=== PATIENT | male | born 1965 | race Caucasian/White ===

== ENCOUNTER 2017-11-21 05:05 | Observation (INO) | payer BC ==
[~2017-11-21] VITALS: Ht 180.3 cm; Wt 95.3 kg
--- NOTE | 2017-11-21 05:23 | EMERGENCY ROOM VISIT NOTE ---
History First contact with patient: 05:10 Chief Complaint: CARDIAC ASSESSMENT Stated Complaint: TIGHTNESS IN CHEST History of Present Illness The patient is a 52 year old male who presents to the Emergency Room for evaluation of left chest pain. Onset around 8pm this evening. Tight in nature no stabbing. No radiation. Associated with some mild SOB and anxiety. Exertion makes worse, rest makes better. No history cardiac disease. History of DMII, DLP, and family CAD history. No HTN nor smoking. Denies lightheaded, syncope, palpitations, nausea, vomiting nor other symptoms. No previous cardiac work-up. 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 No hand, forearm, calf, leg swelling nor pain. No medications prior to arrival. Review of Systems See HPI for pertinent positives & negatives. A total of 10 systems reviewed and were otherwise negative. Past Medical/Surgical History Medical Problems: (1) DMII (diabetes mellitus, type 2) (2) Hyperlipidemia (3) Hypothyroidism Social History Smoking Status: Never Smoker Smokeless Tobacco Use: No Drug Use: none Marital Status: Current/Historical Medications Scheduled Aspirin (Aspirin Ec), 81 MG PO DAILY Canagliflozin (Invokana), 300 MG PO DAILY Glyburide (Glyburide), 1.25 MG PO QAM Levothyroxine Sodium (Levothyroxine Sodium), 125 MCG PO DAILY Metformin Hcl (Glucophage), 1,000 MG PO BIDM Simvastatin (Zocor), 20 MG PO QPM Physical Exam Vital Signs Date Time Temp Pulse Resp B/P (MAP) Pulse Ox O2 Delivery O2 Flow Rate FiO2 11/21/17 07:18 90 18 109/72 99 Room Air 11/21/17 06:47 93 11/21/17 06:01 116/74 11/21/17 06:00 90 18 96 Room Air 11/21/17 05:59 110/67 11/21/17 05:58 79 110/67 97 Room Air 11/21/17 05:56 67 18 77/53 97 Room Air 11/21/17 05:55 73 18 58/42 94 Room Air 11/21/17 05:17 Room Air 11/21/17 05:07 37.2 100 20 157/84 98 Room Air Physical Exam GENERAL: Patient is well appearing and mildly anxious HEENT: No acute trauma, normocephalic atraumatic, mucous membranes moist, no nasal congestion, no scleral icterus. NECK: No stridor, no adenopathy, no meningismus, trachea is midline. LUNGS: No dyspnea. Clear to auscultation and equal bilaterally. No wheeze, no rhonchi. HEART: Regular rate and rhythm. No murmurs, rubs, gallops appreciated. ABDOMEN: Soft, nontender, bowel sounds positive, no masses appreciated, no peritonitis. BACK: No midline tenderness, no CVA tenderness EXTREMITIES: Normal motion all extremities, no cyanosis, no edema. NEUROLOGIC: Alert and oriented, no acute motor or sensory deficits, no focal weakness, cranial nerves grossly intact. SKIN: resolving bruise over left anterior bicep. abrasion over left knee healing. no rash, no jaundice, no diaphoresis. Medical Decision & Procedures Laboratory Results 11/21/17 05:15 Red Blood Count 5.37, Mean Corpuscular Volume 86.6, Mean Corpuscular Hemoglobin 30.5, Mean Corpuscular Hemoglobin Concent 35.3, Mean Platelet Volume 10.1, Neutrophils (%) (Auto) 54.4, Lymphocytes (%) (Auto) 29.6, Monocytes (%) (Auto) 7.8, Eosinophils (%) (Auto) 7.2, Basophils (%) (Auto) 0.7, Neutrophils # (Auto) 9.34, Lymphocytes # (Auto) 5.08, Monocytes # (Auto) 1.33, Eosinophils # (Auto) 1.23, Basophils # (Auto) 0.12 11/21/17 05:15 Test 11/21/17 05:15 White Blood Count 17.15 K/uL (4.8-10.8) Red Blood Count 5.37 M/uL (4.7-6.1) Hemoglobin 16.4 g/dL (14.0-18.0) Hematocrit 46.5 % (42-52) Mean Corpuscular Volume 86.6 fL (80-100) Mean Corpuscular Hemoglobin 30.5 pg (25-34) Mean Corpuscular Hemoglobin Concent 35.3 g/dl (32-36) Platelet Count 303 K/uL (130-400) Mean Platelet Volume 10.1 fL (7.4-10.4) Neutrophils (%) (Auto) 54.4 % Lymphocytes (%) (Auto) 29.6 % Monocytes (%) (Auto) 7.8 % Eosinophils (%) (Auto) 7.2 % Basophils (%) (Auto) 0.7 % Neutrophils # (Auto) 9.34 K/uL (1.4-6.5) Lymphocytes # (Auto) 5.08 K/uL (1.2-3.4) Monocytes # (Auto) 1.33 K/uL (0.11-0.59) Eosinophils # (Auto) 1.23 K/uL (0-0.5) Basophils # (Auto) 0.12 K/uL (0-0.2) RDW Standard Deviation 41.0 fL (36.4-46.3) RDW Coefficient of Variation 12.9 % (11.5-14.5) Immature Granulocyte % (Auto) 0.3 % Immature Granulocyte # (Auto) 0.05 K/uL (0.00-0.02) D-Dimer 570 ug/L FEU (0-500) Anion Gap 5.0 mmol/L (3-11) Est Creatinine Clear Calc Drug Dose 78.0 ml/min Estimated GFR () 72.9 Estimated GFR (Non- 62.9 BUN/Creatinine Ratio 14.1 (10-20) Calcium Level 8.9 mg/dl (8.5-10.1) Total Bilirubin 0.6 mg/dl (0.2-1) Direct Bilirubin 0.2 mg/dl (0-0.2) Aspartate Amino Transf (AST/SGOT) 15 U/L (15-37) Alanine Aminotransferase (ALT/SGPT) 32 U/L (12-78) Alkaline Phosphatase 93 U/L (45-117) Total Protein 8.4 gm/dl (6.4-8.2) Albumin 4.2 gm/dl (3.4-5.0) Lipase 451 U/L (73-393) Medications Administered Medications (Trade) Dose Ordered Sig/Freddy Route Start Time Stop Time Status Last Admin Dose Admin Aspirin (Aspirin Chew) 324 mg NOW STAT PO 11/21/17 05:41 11/21/17 05:42 DC 11/21/17 05:48 324 MG Nitroglycerin (Nitrostat Tab) 0.4 mg Q5M PRN SL 11/21/17 05:45 11/21/17 10:42 DC 11/21/17 05:49 0.4 MG Sodium Chloride 1,000 ml @ 999 mls/hr Q1H1M STAT IV 11/21/17 05:57 11/21/17 06:57 DC 11/21/17 06:06 999 MLS/HR Al Hydroxide/Mg Hydroxide (Maalox Susp) 30 ml NOW STAT PO 11/21/17 07:10 11/21/17 07:11 DC 11/21/17 07:17 30 ML Pantoprazole Sodium (Protonix Tab) 40 mg NOW STAT PO 11/21/17 07:10 11/21/17 07:11 DC 11/21/17 07:18 40 MG ECG Per My Interpretation Indication: chest pain Rate (beats per minute): 98 Rhythm: normal sinus Findings: no acute ischemic change, no ectopy Medical Decision Differential: Cardiac Ischemia (STEMI, NSTEMI, Unstable Angina, etc), Aortic Dissection, Arrhythmia, Pulmonary Embolism, Pneumonia, Pneumothorax, MSK, Infectious, Pericarditis/Myocarditis, Esophageal Rupture, Gastrointestinal, amongst other pathologies entertained. 52 yr old male arrives for evaluation of left substernal chest pressure. EKG without ischemia. Initial trop negative. WBC 17 of uncertain etiology though no fever, cxr clear, no infectious symptoms, and abdomen is soft/non-tender. Glucose 250s consistent with his diabetes and admits he doesn't take his BG at home. Given SLNTG with rapid deep drop in BP to SBP 50s which responded to laying back and NSS bolus. No change in pain. Repeat EKG unremarkable as well. Mild increase dimer and with symptoms felt CT PE indicated. Signed out to Dr Mena awaiting report and plan discuss with hospitalist. Head Trauma GCS Score: 15 Medication Reconcilliation Current Medication List: was personally reviewed by me Blood Pressure Screening Patient's blood pressure: Elevated blood pressure Impression Primary Impression: Substernal chest pain Departure Information Referrals Marlon Dobson M.D.(HU[facility]) (PCP) Patient Instructions My [facility]
[2017-11-21 05:31] LABS: HEMATOCRIT 46.5 % (42-52); HEMOGLOBIN 16.4 g/dL (14.0-18.0); MEAN CELL VOLUME 86.6 fL (80-100); MEAN CORPUSCULAR HEMOGLOBIN 30.5 pg (25-34); MEAN CORPUSCULAR HGB CONC 35.3 g/dl (32-36); MEAN PLATELET VOLUME 10.1 fL (7.4-10.4); PLATELET COUNT 303 K/uL (130-400); RED CELL DISTRIBUTION WIDTH CV 12.9 % (11.5-14.5); WHITE BLOOD COUNT 17.15 K/uL (4.8-10.8)
[2017-11-21] MEDS ORDERED: ASPIRIN 324 MG CHEW PO STA (05:41)
[2017-11-21] MEDS ORDERED: NITROGLYCERIN 0.4 MG SL PER TAB CHARGE SL PRN (05:45)
[2017-11-21 05:50] LABS: BLOOD UREA NITROGEN 18 mg/dl (7-18); CALCIUM 8.9 mg/dl (8.5-10.1); CARBON DIOXIDE 27 mmol/L (21-32); CREATININE 1.29 mg/dl (0.60-1.40); GLUCOSE 252 mg/dl (70-99); POTASSIUM 4.1 mmol/L (3.5-5.1); SODIUM 132 mmol/L (136-145)
[2017-11-21 05:57] LABS: BASO % 0.7 %; BASO ABS # 0.12 K/uL (0-0.2); EOS % 7.2 %; EOS ABS # 1.23 K/uL (0-0.5); IG# 0.05 K/uL (0.00-0.02); LYMPH % 29.6 %; LYMPH ABS # 5.08 K/uL (1.2-3.4); MONO % 7.8 %; MONO ABS # 1.33 K/uL (0.11-0.59); NEUT % 54.4 %; NEUT ABS # 9.34 K/uL (1.4-6.5)
[2017-11-21] MEDS ORDERED: SODIUM CHLORIDE 0.9% 1000ML 1,000 ML IV STA (05:57)
[2017-11-21] MEDS ORDERED: OPTIRAY 320 IV PRN (06:30)
[2017-11-21] MEDS ORDERED: ASPI81TA28 PO (06:42)
[2017-11-21] MEDS ORDERED: CANA1TAB3 PO (06:44)
[2017-11-21] MEDS ORDERED: GLYB1.257 PO (06:46)
[2017-11-21 06:47] LABS: ALBUMIN 4.2 gm/dl (3.4-5.0); ALKALINE PHOSPHATASE 93 U/L (45-117); ALT/SGPT 32 U/L (12-78); AST/SGOT 15 U/L (15-37); LIPASE 451 U/L (73-393); TOTAL PROTEIN 8.4 gm/dl (6.4-8.2)
[2017-11-21] MEDS ORDERED: LEVO125T5 PO (06:48)
[2017-11-21] MEDS ORDERED: SIMV20TA2 PO (06:49)
[2017-11-21] MEDS ORDERED: METF-384 PO (06:50)
--- NOTE | 2017-11-21 07:02 | DIAGNOSTIC IMAGING REPORT ---
CT ANGIOGRAM OF THE CHEST CLINICAL HISTORY: Atypical chest pain COMPARISON STUDY: Chest x-ray November 21, 2007 TECHNIQUE: Following the IV administration of 92 mL of Optiray-320, CT angiogram of the thorax was performed from the thoracic inlet to the lung bases utilizing the pulmonary embolus protocol. Images are reviewed in the axial, sagittal, and coronal planes. IV contrast was administered without complication. MIP imaging was performed. A dose lowering technique was utilized adhering to the principles of ALARA. CT DOSE: 593.04 mGycm FINDINGS: There is an 18 mm right lobe thyroid nodule. Nonemergent thyroid ultrasonography should be considered in follow-up. No pathologically enlarged axillary mediastinal or hilar lymph nodes were visualized. There was no evidence of thoracic aortic dilatation. There were no pulmonary artery filling defects to indicate acute pulmonary embolism. No pleural effusions are visualized. There is a 6 x 4 mm right lower lobe solid pulmonary nodule as visualized in image #[id number]. There is a 2 mm subpleural calcified granuloma within the right upper lobe. There is no focal pulmonary consolidation. IMPRESSION: 1. No evidence of acute pulmonary embolism 2. No evidence of focal pulmonary consolidation 3. 6 x 4 mm solid right lower lobe pulmonary nodule. In a low risk patient, no further follow-up is indicated. 4. 18 mm right lobe thyroid nodule. Please refer to below summary of Fleischner criteria recommendations for follow-up of incidental CT nodules (Rafael Padilla, Guidelines for management of small pulmonary nodules detected on CT scans: A statement from the Fleischner Society, Radiology 237: [phone].) SOLID NODULES Solitary nodule size: <6 mm * low risk patients: no follow-up needed * high risk patients: optional CT at 12 months Solitary nodule size: 6-8 mm * low risk patients: follow-up at 6-12 months, then consider further follow-up at 18-24 months * high risk patients: initial follow-up CT at 6-12 months and then at 18-24 months if no change Solitary nodule size: >8 mm * either low or high risk patients - consider follow-up CT at 3 months, and/or CT-PET, and/or biopsy Multiple nodules size: <6 mm * low risk patients: no routine follow-up * high risk patients: optional CT at 12 months Multiple nodules size: 6-8 mm * low risk patients: follow-up at 3-6 months, then consider further follow-up at 18-24 months * high risk patients: follow-up at 3-6 months, then at 18-24 months if no change Multiple nodules size: >8 mm * low risk patients: follow-up at 3-6 months, then consider further follow-up at 18-24 months * high risk patients: follow-up at 3-6 months, then at 18-24 months if no change Note: newly detected indeterminate nodule in persons 35 years of age or older. * low risk patients: minimal or absent history of smoking and/or other known risk factors * high risk patients: history of smoking or of other known risk factors (e.g. first degree relative with lung cancer, or exposure to asbestos, radon, uranium) * if a nodule up to 8 mm is partly solid or is ground glass further follow-up is required after 24 months to exclude possible slow growing adenocarcinoma (ABIEL) SUBSOLID NODULES Solitary pure ground-glass nodule * nodule size <6 mm - no CT follow-up required * nodule size >=6 mm - follow-up CT at 6-12 months, then every 2 years until 5 years Solitary part-solid nodule * nodule size <6 mm - no CT follow-up required * nodule size >=6 mm - follow-up CT at 3-6 months. If unchanged, and solid component remains <6 mm, then annual follow-up for 5 years Multiple subsolid nodules * nodule size <6 mm - follow-up CT at 3-6 months, consider further follow-up at 2 and 4 years if stable * nodule size >=6 mm - follow-up CT at 3-6 months, subsequent management based on the most suspicious nodule(s) Electronically signed by: Wali Yuan M.D. 11/21/2017 7:00 AM Dictated Date/Time: 11/21/2017 6:55 AM
[2017-11-21] MEDS ORDERED: PANTOprazole SOD 40 MG TAB PO STA (07:10)
[2017-11-21] MEDS ORDERED: ALUMINUM/MAGNESIUM SUSP 30 ML UDC PO STA (07:10)
--- NOTE | 2017-11-21 07:10 | DIAGNOSTIC IMAGING REPORT ---
SINGLE VIEW CHEST CLINICAL HISTORY: Atypical chest pain. FINDINGS: An AP, portable, upright chest radiograph is obtained. No prior studies are available for comparison at the time of dictation. After degraded The cardiomediastinal silhouette is unremarkable. The lungs and pleural spaces are clear. No pneumothorax is seen. The bony thorax is grossly intact. IMPRESSION: No active disease in the chest. Electronically signed by: Francois Bowen M.D. 11/21/2017 7:09 AM Dictated Date/Time: 11/21/2017 7:09 AM
--- NOTE | 2017-11-21 07:30 | EMERGENCY ROOM VISIT NOTE ---
ED Visit Note First contact with patient: 07:10 I received this patient change of shift signout from Dr. Bright. Please see his note for initial presentation and history and physical. The patient is a 52 -year-old diabetic who presented to the emergency department for chest discomfort. The patient describes his chest discomfort as a pressure and a burning sensation. He has not had a cardiac workup in the past. He does have risk factors including diabetes and hyperlipidemia and also had a family history of heart disease. The patient was treated with aspirin and nitroglycerin. He did have a drop in his blood pressure but this was treated with IV fluids with good results. The patient continues to have a slight amount of chest pain at this time. EKG does not show any acute ischemic changes. His initial cardiac biomarkers was negative despite having ongoing pain since 11 PM last evening. I discussed the patient's laboratory and radiographic studies with him. I also discussed the limitations of the emergency department workup for chest pain with him. Given his risk factors I also discussed this case with the on-call [facility] hospitalist. They will evaluate the patient in the emergency department for further management and disposition.
[2017-11-21] MEDS ORDERED: IV FLUIDS COMPLETED PRN (07:45)
[2017-11-21 08:50] VITALS: O2SAT 97
[2017-11-21] MEDS ORDERED: GLUCOSE 10 TABS/TUBE PO PRN (09:00)
[2017-11-21] MEDS ORDERED: ONDANSETRON INJ 2 MG/ML 2 ML VIAL IV PRN (09:00)
[2017-11-21] MEDS ORDERED: GLUCAGON FOR INJ 1 MG VIAL SQ PRN (09:00)
[2017-11-21] MEDS ORDERED: DEXTROSE 50% 50 ML SYR IV PRN (09:00)
[2017-11-21] MEDS ORDERED: GLUCOSE 40% GEL 15 GM TUBE PO PRN (09:00)
[2017-11-21] MEDS ORDERED: ACETAMINOPHEN 325 MG TAB PO PRN (09:00)
[2017-11-21] MEDS ORDERED: MoRPHine SULFATE 2 MG/ML CARP IV PRN (09:00)
--- NOTE | 2017-11-21 09:19 | History and Physical ---
History & Physical Date & Time of Service: Nov 21, 2017 at 09:01 Chief Complaint: Tightness In Chest Primary Care Physician: Marlon Dobson M.D.(LINDA) History of Present Illness Source: patient, spouse, clinic records, hospital records 52 yo diabetic male presents with substernal chest tightness that began when he laid down to sleep last night. 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 He ate a large lunch and dinner and noticed not feeling right but couldn't identify what was wrong until he got into bed and felt the pressure. It was not associated with any other symptoms including no nausea, lightheadedness, diaphoresis, palpitations, or shortness of breath. He did report two episodes of loose stool yesterday, but otherwise, denies any abdominal pain, blood in stool or other symptoms. He reports going to sleep then waking up to go to the restroom around 0430. He noticed the pain was still present and this concerned him enough to come in and be seen. Two weeks ago he tripped on a curb and fell on his L shoulder, which is bruised and has some limited ROM. He reports being concerned that the pain he was feeling was from a blood clot. In the ER he had a mildly positive D-dimer and underwent CTA which was negative for PE. He was found to have a glucose of 250, reports an A1C of 9, had a Na 132 and a WBC 17K. He is not ill appearing and has no cold symptoms. Physical exam was unremarkable aside from some mild tenderness to palpation on the lower left sternal border and in some intercostal spaces nonspecifically. He reports not leading a very active lifestyle and does not exercise regularly. He is a non smoker who rarely uses alcohol and has no significant family history. DMII, HLP and age are his risk factors for cardiac disease. He has never undergone a cardiac evaluation. Past Medical/Surgical History Medical Problems: (1) DMII (diabetes mellitus, type 2) Status: Chronic (2) Hyperlipidemia Status: Chronic (3) Hypothyroidism Status: Chronic Family History Patient reports no known family medical history. Social History Smoking Status: Never Smoker Smokeless Tobacco Use: No Alcohol Use: socially Drug Use: none Marital Status: Housing status: lives with significant other Occupational Status: employed Immunizations History of Influenza Vaccine: Yes Influenza Vaccine Date: Oct 25, 2017 History of Tetanus Vaccine?: Yes Tetanus Immunization Date: Aug 13, 2008 History of Pneumococcal: Yes Pneumococcal Date: Sep 07, 2009 History of Hepatitis B Vaccine: Yes Hepatitis Immunization Date: Jul 15, 2016 Multi-Drug Resistant Organisms History of MDRO: No Allergies Coded Allergies: No Known Allergies (Unverified , 11/21/17) Home Medications Scheduled Aspirin (Aspirin Ec), 81 MG PO DAILY Canagliflozin (Invokana), 300 MG PO DAILY Glyburide (Glyburide), 1.25 MG PO QAM Levothyroxine Sodium (Levothyroxine Sodium), 125 MCG PO DAILY Metformin Hcl (Glucophage), 1,000 MG PO BIDM Simvastatin (Zocor), 20 MG PO QPM Review of Systems At least ten systems were reviewed and negative except as indicated in HPI. Physical Exam Vital Signs Date Time Temp Pulse Resp B/P (MAP) Pulse Ox O2 Delivery O2 Flow Rate FiO2 11/21/17 07:18 90 18 109/72 99 Room Air 11/21/17 06:47 93 11/21/17 06:01 116/74 11/21/17 06:00 90 18 96 Room Air 11/21/17 05:59 110/67 11/21/17 05:58 79 110/67 97 Room Air 11/21/17 05:56 67 18 77/53 97 Room Air 11/21/17 05:55 73 18 58/42 94 Room Air 11/21/17 05:17 Room Air 11/21/17 05:07 37.2 100 20 157/84 98 Room Air General Appearance: WD/WN, no apparent distress Head: normocephalic, atraumatic Eyes: normal inspection, PERRL, sclerae normal ENT: hearing grossly normal, pharynx normal Neck: no JVD, trachea midline Respiratory/Chest: lungs clear, normal breath sounds, no respiratory distress, no accessory muscle use, + pertinent finding Cardiovascular: regular rate, rhythm, no edema, no gallop, no murmur, normal peripheral pulses Abdomen/GI: normal bowel sounds, non tender, soft, no organomegaly Back: normal inspection Extremities/Musculoskelatal: normal inspection, no pedal edema, normal range of motion Neurologic/Psych: linotypist II-XII nml as tested, no motor/sensory deficits, alert, normal mood/affect, oriented x 3 Skin: normal color, warm/dry Diagnostics Laboratory Results 11/21/17 05:15 Red Blood Count 5.37, Mean Corpuscular Volume 86.6, Mean Corpuscular Hemoglobin 30.5, Mean Corpuscular Hemoglobin Concent 35.3, Mean Platelet Volume 10.1, Neutrophils (%) (Auto) 54.4, Lymphocytes (%) (Auto) 29.6, Monocytes (%) (Auto) 7.8, Eosinophils (%) (Auto) 7.2, Basophils (%) (Auto) 0.7, Neutrophils # (Auto) 9.34, Lymphocytes # (Auto) 5.08, Monocytes # (Auto) 1.33, Eosinophils # (Auto) 1.23, Basophils # (Auto) 0.12 11/21/17 05:15 Test 11/21/17 05:15 White Blood Count 17.15 K/uL (4.8-10.8) Red Blood Count 5.37 M/uL (4.7-6.1) Hemoglobin 16.4 g/dL (14.0-18.0) Hematocrit 46.5 % (42-52) Mean Corpuscular Volume 86.6 fL (80-100) Mean Corpuscular Hemoglobin 30.5 pg (25-34) Mean Corpuscular Hemoglobin Concent 35.3 g/dl (32-36) Platelet Count 303 K/uL (130-400) Mean Platelet Volume 10.1 fL (7.4-10.4) Neutrophils (%) (Auto) 54.4 % Lymphocytes (%) (Auto) 29.6 % Monocytes (%) (Auto) 7.8 % Eosinophils (%) (Auto) 7.2 % Basophils (%) (Auto) 0.7 % Neutrophils # (Auto) 9.34 K/uL (1.4-6.5) Lymphocytes # (Auto) 5.08 K/uL (1.2-3.4) Monocytes # (Auto) 1.33 K/uL (0.11-0.59) Eosinophils # (Auto) 1.23 K/uL (0-0.5) Basophils # (Auto) 0.12 K/uL (0-0.2) RDW Standard Deviation 41.0 fL (36.4-46.3) RDW Coefficient of Variation 12.9 % (11.5-14.5) Immature Granulocyte % (Auto) 0.3 % Immature Granulocyte # (Auto) 0.05 K/uL (0.00-0.02) D-Dimer 570 ug/L FEU (0-500) Anion Gap 5.0 mmol/L (3-11) Est Creatinine Clear Calc Drug Dose 78.0 ml/min Estimated GFR () 72.9 Estimated GFR (Non- 62.9 BUN/Creatinine Ratio 14.1 (10-20) Calcium Level 8.9 mg/dl (8.5-10.1) Total Bilirubin 0.6 mg/dl (0.2-1) Direct Bilirubin 0.2 mg/dl (0-0.2) Aspartate Amino Transf (AST/SGOT) 15 U/L (15-37) Alanine Aminotransferase (ALT/SGPT) 32 U/L (12-78) Alkaline Phosphatase 93 U/L (45-117) Troponin I < 0.015 ng/ml (0-0.045) Total Protein 8.4 gm/dl (6.4-8.2) Albumin 4.2 gm/dl (3.4-5.0) Lipase 451 U/L (73-393) Results Past 24 Hours Test 11/21/17 05:15 Range/Units White Blood Count 17.15 4.8-10.8 K/uL Red Blood Count 5.37 4.7-6.1 M/uL Hemoglobin 16.4 14.0-18.0 g/dL Hematocrit 46.5 42-52 % Mean Corpuscular Volume 86.6 80-100 fL Mean Corpuscular Hemoglobin 30.5 25-34 pg Mean Corpuscular Hemoglobin Concent 35.3 32-36 g/dl Platelet Count 303 130-400 K/uL Mean Platelet Volume 10.1 7.4-10.4 fL Neutrophils (%) (Auto) 54.4 % Lymphocytes (%) (Auto) 29.6 % Monocytes (%) (Auto) 7.8 % Eosinophils (%) (Auto) 7.2 % Basophils (%) (Auto) 0.7 % Neutrophils # (Auto) 9.34 1.4-6.5 K/uL Lymphocytes # (Auto) 5.08 1.2-3.4 K/uL Monocytes # (Auto) 1.33 0.11-0.59 K/uL Eosinophils # (Auto) 1.23 0-0.5 K/uL Basophils # (Auto) 0.12 0-0.2 K/uL RDW Standard Deviation 41.0 36.4-46.3 fL RDW Coefficient of Variation 12.9 11.5-14.5 % Immature Granulocyte % (Auto) 0.3 % Immature Granulocyte # (Auto) 0.05 0.00-0.02 K/uL D-Dimer 570 0-500 ug/L FEU Sodium Level 132 136-145 mmol/L Potassium Level 4.1 3.5-5.1 mmol/L Chloride Level 100 98-107 mmol/L Carbon Dioxide Level 27 21-32 mmol/L Anion Gap 5.0 3-11 mmol/L Blood Urea Nitrogen 18 7-18 mg/dl Creatinine 1.29 0.60-1.40 mg/dl Est Creatinine Clear Calc Drug Dose 78.0 ml/min Estimated GFR () 72.9 Estimated GFR (Non- 62.9 BUN/Creatinine Ratio 14.1 10-20 Random Glucose 252 70-99 mg/dl Calcium Level 8.9 8.5-10.1 mg/dl Total Bilirubin 0.6 0.2-1 mg/dl Direct Bilirubin 0.2 0-0.2 mg/dl Aspartate Amino Transf (AST/SGOT) 15 15-37 U/L Alanine Aminotransferase (ALT/SGPT) 32 12-78 U/L Alkaline Phosphatase 93 45-117 U/L Troponin I < 0.015 0-0.045 ng/ml Total Protein 8.4 6.4-8.2 gm/dl Albumin 4.2 3.4-5.0 gm/dl Lipase 451 73-393 U/L Diagnostic Radiology CT ANGIOGRAM OF THE CHEST CLINICAL HISTORY: Atypical chest pain COMPARISON STUDY: Chest x-ray November 21, 2007 TECHNIQUE: Following the IV administration of 92 mL of Optiray-320, CT angiogram of the thorax was performed from the thoracic inlet to the lung bases utilizing the pulmonary embolus protocol. Images are reviewed in the axial, sagittal, and coronal planes. IV contrast was administered without complication. MIP imaging was performed. A dose lowering technique was utilized adhering to the principles of ALARA. CT DOSE: 593.04 mGycm FINDINGS: There is an 18 mm right lobe thyroid nodule. Nonemergent thyroid ultrasonography should be considered in follow-up. No pathologically enlarged axillary mediastinal or hilar lymph nodes were visualized. There was no evidence of thoracic aortic dilatation. There were no pulmonary artery filling defects to indicate acute pulmonary embolism. No pleural effusions are visualized. There is a 6 x 4 mm right lower lobe solid pulmonary nodule as visualized in image #[id number]. There is a 2 mm subpleural calcified granuloma within the right upper lobe. There is no focal pulmonary consolidation. IMPRESSION: 1. No evidence of acute pulmonary embolism 2. No evidence of focal pulmonary consolidation 3. 6 x 4 mm solid right lower lobe pulmonary nodule. In a low risk patient, no further follow-up is indicated. 4. 18 mm right lobe thyroid nodule. SINGLE VIEW CHEST CLINICAL HISTORY: Atypical chest pain. FINDINGS: An AP, portable, upright chest radiograph is obtained. No prior studies are available for comparison at the time of dictation. After degraded The cardiomediastinal silhouette is unremarkable. The lungs and pleural spaces are clear. No pneumothorax is seen. The bony thorax is grossly intact. IMPRESSION: No active disease in the chest. Normal EKG Impression Assessment and Plan 52 yo uncontrolled diabetic male with hyperlipidemia presents with substernal chest pain that developed at rest overnight and is still present. 1. chest pain-risk factors for ACS include uncontrolled diabetes, male gender, and hyperlipidemia. His workup is currently negative. He was given ASA and nitro in the ER and his BP dropped to 56 systolic in response to the nitro, improving with a liter of IVF. He does have a mild leukocytosis which may be related to inflammation from his recent LUE injury. He is not ill-appearing and has no abdominal symptoms aside from two episodes of loose stools last night. Because of his risk, he will be admitted for serial troponins and consideration by Cards for risk stratification. His pain is still present and is described as a 2/10. He is refusing morphine, but is agreeable to APAP 1000mg which we will try now. No further nitro. 2. Hyperlipidemia-cont statin, recheck lipids when fasting 3. DMII-uncontrolled, reports recent A1C of 9. Not on insulin as outpatient because of fear of needles. Understands ISS and Lantus will be used in house. ISS/glargine with carb coverage to meet inpatient goals. Repeat A1C is pending. 4. Hypothyroidism-cont synthroid per home dosing. 5. thyroid nodule-outpatient workup per PCP 6. pulmonary nodule-outpatient workup per Fleishner guidelines. DVT proph-Dieter Full Code Dispo-to telemetry DO Wendy P[facility] Hospitalist Level of Care Telemetry Resuscitation Status FULL RESUSCITATION VTE Prophylaxis VTE Risk Assessment Done? Y/N: Yes Risk Level: Moderate Given or contraindicated: Enoxaparin (Lovenox)SQ
[2017-11-21 09:48] VITALS: BP 124/84; PULSE 99; TEMP 36.7; Ht 180.3 cm; Wt 95.3 kg
[2017-11-21] MEDS ORDERED: ACETAMINOPHEN 500 MG TAB PO SCH (11:00)
[2017-11-21] MEDS ORDERED: ACETAMINOPHEN 500 MG TAB PO PRN (11:00)
[2017-11-21] MEDS ORDERED: INSULIN GLARGINE SOLOSTAR 100 UNITS/ML 3 ML PEN SC SCH (11:00)
[2017-11-21] MEDS ORDERED: NURSING VERBAL MED ORDER ONE (11:00)
[2017-11-21] MEDS ORDERED: IBUPROFEN 600 MG TAB PO PRN (11:15)
[2017-11-21] MEDS ORDERED: IBUPROFEN 600 MG TAB PO ONE (11:15)
[2017-11-21] MEDS ORDERED: ASPIRIN 81 MG ECTAB PO SCH (11:30)
[2017-11-21] MEDS ORDERED: LEVOTHYROXINE 125 MCG TAB PO SCH (11:30)
[2017-11-21 11:40] LABS: PTT PATIENT 25.4 SECONDS (21.0-31.0)
[2017-11-21] MEDS: INSULIN ASPART 100 UNITS/ML 3 ML PEN SC SCH ×2 (11:45→18:40)
[2017-11-21 11:54] VITALS: BP 119/84; PULSE 96; TEMP 37; O2SAT 94
--- NOTE | 2017-11-21 12:16 | CARDIOLOGY CONSULTATION ---
DATE OF CONSULTATION: 11/21/2017 CONSULTATION REQUESTED BY: Dr. Fields. REASON FOR CONSULTATION: Chest pain. HISTORY OF PRESENT ILLNESS: Mr. Hicks is a 52-year-old gentleman who presented to [facility] early in the a.m. of 11/21/2017 with a complaint of chest pain. The patient states that the pain started last night when he was sitting in his recliner, working on his computer. He was a little anxious at that time but he states nothing out of the ordinary for him when he suddenly developed chest discomfort. He described it as a substernal tightness. It was right along his left sternal border. It did not radiate. He states at that time he went to lay down to go to bed. The pain had waxed and waned throughout the night. He was able to fall asleep, but then when he woke up at 4:30 in the morning, the pain seemed to be more significant and he came into the Emergency Department. In the Emergency Department, initial blood work and EKG were unremarkable and he was admitted to telemetry. He denies any associated symptoms with the discomfort, specifically he denied any associated shortness of breath, diaphoresis, nausea, lightheadedness, dizziness or syncope. The patient does note that the pain is worse with deep inhalation. Of note, the patient had recent shoulder trauma approximately a week ago, he tripped on a curb and fell on his left side. He did have significant damage to his shoulder. He is scheduled to see an orthopedic surgeon. He does have a large bruise on his left shoulder and he has been taking Motrin consistently ever since; however, he stopped the Motrin yesterday or the day before, he is not sure. Upon having the patient rotate his shoulder with full range of motion, he states that his shoulder pain does seem to radiate into his chest at the same spot where the pain is, that brought him into the Emergency Department. Otherwise, of note, the patient states he seems a little bit more tired lately and possibly some dyspnea with exertion but nothing significant. PAST SURGICAL HISTORY: 1. Oral surgery. 2. Cyst removal. MEDICAL ILLNESSES: 1. Diabetes. 2. Dyslipidemia. 3. Hypothyroidism. FAMILY HISTORY: Denies any premature coronary artery disease or sudden cardiac . SOCIAL HISTORY: Denies any alcohol, tobacco or recreational drug use. He is and lives at home with his . He has 2 children who are in good health. 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 He does not exercise. REVIEW OF SYSTEMS: As per HPI, all other review of systems reviewed and negative at this time. ALLERGIES: SEASONAL. No known drug allergies. MEDICATIONS AN OUTPATIENT: 1. Aspirin 81 mg daily. 2. Simvastatin 20 mg daily. 3. Invokana daily. 4. Levothyroxine daily. 5. Glucophage b.i.d. 6. Glyburide daily. PHYSICAL EXAMINATION: VITALS: Temperature 37, pulse 95, respiratory rate 12, blood pressure 122/91. GENERAL: Awake, alert, oriented x3, in no acute distress. HEENT: Normocephalic, atraumatic. Pupils equal, round, and reactive to light and accommodation. Extraocular muscles intact. Anicteric sclerae. Moist mucous membranes. NECK: No JVD, no bruit. CARDIOVASCULAR: Regular. Positive S4. Normal S1 and S2. No S3. No murmurs or rubs. PULMONARY: Clear to auscultation bilaterally. No rales, rhonchi or wheezing. ABDOMEN: Bowel sounds x4. Soft. No rebound, guarding, tenderness. No organomegaly. EXTREMITIES: No clubbing, cyanosis or edema. +2 pedal pulses bilaterally. SKIN: Warm and dry with a large healing hematoma on the left shoulder. MUSCULOSKELETAL: On direct palpation of the left 6th rib sternal border, I was able to reproduce his discomfort. TEST RESULTS: A 12-lead EKG performed in the Emergency Department upon arrival independently reviewed at this time, shows normal sinus rhythm at 98 beats per minute, normal axis, normal intervals, normal study. LABORATORY STUDIES OF SIGNIFICANCE: Initial troponin of less than 0.015. Sodium 132, potassium 4.1, BUN 18, creatinine 1.3. IMPRESSION: 1. Musculoskeletal chest pain. 2. Diabetes. 3. Dyslipidemia. 4. Recent shoulder trauma. 5. Increasing fatigue. RECOMMENDATIONS: Mr. Hicsk was counseled. Given the fact that his chest pain is reproducible with palpation and deep inhalation along with the fact that his EKG is unremarkable as is his blood work, that his pain does not appear to be cardiac in nature and that no further cardiac testing or intervention is necessary at this time. I would recommend NSAIDs for pain control with close watch of his renal function. From a cardiac standpoint, my only concern would be the fact he is a little bit more fatigued lately with possible increasing dyspnea. So given his risk factors for coronary artery disease, the patient was counseled we could perform an exercise stress echocardiogram at this time to further evaluate for any underlying ischemic coronary artery disease; however, the patient declines. He states he does not want to do any tests that might cost any more money. So at this point, I recommend the patient follow up with his primary care physician as an outpatient and stress testing can be completed as an outpatient. Otherwise, he does have diabetes and I would recommend he follow up with his primary care physician and likely be initiated on afterload reduction with SEBASTIAN or ARB for its nephroprotective effects. No other medication changes will be made at this time.
[2017-11-21] MEDS ORDERED: ENOXAPARIN 40 MG/0.4 ML SYR SC SCH (13:30)
[2017-11-21 15:31] VITALS: BP 137/85; PULSE 86; TEMP 36.8; O2SAT 97
--- NOTE | 2017-11-21 17:37 | Discharge Summary ---
Discharge Summary Date of Service Nov 21, 2017. Discharge Summary Admission Date: Nov 21, 2017 at 07:41 Discharge Date: Nov 21, 2017 Discharge Disposition: Home Medication Reconciliation Continued Medications: Aspirin (Aspirin Ec) 81 Mg Tab 81 MG PO DAILY Canagliflozin (Invokana) 300 Mg Tab 300 MG PO DAILY Glyburide (Glyburide) 1.25 Mg Tab 1.25 MG PO QAM WITH BREAKFAST Levothyroxine Sodium (Levothyroxine Sodium) 125 Mcg Tab 125 MCG PO DAILY Metformin Hcl (Glucophage) 1,000 Mg Tab 1000 MG PO BIDM, TAB TAKE WITH AM AND EVENING MEALS. Simvastatin (Zocor) 20 Mg Tab 20 MG PO QPM, TAB Admission Information HPI (per Admitting provider): 52 yo diabetic male presents with substernal chest tightness that began when he laid down to sleep last night. 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 He ate a large lunch and dinner and noticed not feeling right but couldn't identify what was wrong until he got into bed and felt the pressure. It was not associated with any other symptoms including no nausea, lightheadedness, diaphoresis, palpitations, or shortness of breath. He did report two episodes of loose stool yesterday, but otherwise, denies any abdominal pain, blood in stool or other symptoms. He reports going to sleep then waking up to go to the restroom around 0430. He noticed the pain was still present and this concerned him enough to come in and be seen. Two weeks ago he tripped on a curb and fell on his L shoulder, which is bruised and has some limited ROM. He reports being concerned that the pain he was feeling was from a blood clot. In the ER he had a mildly positive D-dimer and underwent CTA which was negative for PE. He was found to have a glucose of 250, reports an A1C of 9, had a Na 132 and a WBC 17K. He is not ill appearing and has no cold symptoms. Physical exam was unremarkable aside from some mild tenderness to palpation on the lower left sternal border and in some intercostal spaces nonspecifically. He reports not leading a very active lifestyle and does not exercise regularly. He is a non smoker who rarely uses alcohol and has no significant family history. DMII, HLP and age are his risk factors for cardiac disease. He has never undergone a cardiac evaluation. Physical Exam (per Admitting): General Appearance: WD/WN, no apparent distress Head: normocephalic, atraumatic Eyes: normal inspection, PERRL, sclerae normal ENT: hearing grossly normal, pharynx normal Neck: no JVD, trachea midline Respiratory/Chest: lungs clear, normal breath sounds, no respiratory distress, no accessory muscle use, + pertinent finding Cardiovascular: regular rate, rhythm, no edema, no gallop, no murmur, normal peripheral pulses Abdomen/GI: normal bowel sounds, non tender, soft, no organomegaly Back: normal inspection Extremities/Musculoskelatal: normal inspection, no pedal edema, normal range of motion Neurologic/Psych: 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 [place] [address] Discharge Medical Patient Name: Román iHcks Unit Number: [id number] Date of : 1965 Patient Status: Admitted Inpatient (obs) Attending Doctor: Krista Fields DO DI: Medical v4 Discharge Instructions Date of Service Nov 21, 2017. Admission Reason for Admission: Substernal Chest Pain Discharge Discharge Diagnosis / Problem: chest pain Discharge Goals Goal(s): Prevent Disease Progression Activity Recommendations Activity Limitations: per Instructions/Follow-up section . Instructions / Follow-Up Instructions / Follow-Up Please continue all medications as instructed. Feel free to take over the counter medications such as Motrin or Aleve for your pain if it persists. On CT imaging here in the hospital, you were found to have a pulmonary nodule and a nodule in your thyroid that should be addressed by your PCP for need for further workup. Please follow-up with your primary care physician, Dr. Dobson, on 11/26 @11: 25am for follow-up from this hospitalization. It was a pleasure taking care of you! Call if you have any questions or problems. You can reach a [facility] hospitalist on duty at [facility] 24 hours a day by calling [phone]. Take care of yourself. Krista Fields DO [facility] Hospitalist Current Hospital Diet Patient's current hospital diet: Diabetes Type 2 Diet, AHA Diet (Heart Healthy) Discharge Diet Recommended Diet: AHA Diet (Heart Healthy), Diabetes Type 2 Diet Procedures Procedures Performed: None. Pending Studies Studies pending at discharge: no Medical Emergencies . Who to Call and When: Medical Emergencies: If at any time you feel your situation is an emergency, please call 911 immediately. . Non-Emergent Contact Non-Emergency issues call your: Primary Care Provider . . "Provider Documentation" section prepared by Krista Fields. . VTE Core Measure Inpt VTE Proph given/why not?: Enoxaparin (Lovenox)SQ Additional Copies To Marlon Dobson M.D.(LINDA)
[2017-11-21 17:56] VITALS: BP 137/85; PULSE 86; TEMP 36.8; O2SAT 97
[2017-11-21] MEDS ORDERED: SIMVASTATIN 20 MG TAB PO SCH (21:00)
== END 2017-11-21 18:45 | disposition home or self-care (01) ==
LOC: C.EDB 05:07 → C.MED 07:41 → ENRESERV 07:58
PROVIDERS: ADMIT Hospitalist; ATTEND Hospitalist
DX: R07.2 Precordial pain (principal); E11.9 Type 2 diabetes mellitus without complications; E78.5 Hyperlipidemia, unspecified; E03.9 Hypothyroidism, unspecified; Z79.82 Long term (current) use of aspirin; Z79.84 Long term (current) use of oral hypoglycemic drugs

== ENCOUNTER 2019-12-27 06:32 | Inpatient (IN) ==
[2019-12-27] MEDS ORDERED: CEFEPIME 2,000 MG/20 ML VIAL IV STA (06:51)
[2019-12-27] MEDS ORDERED: SODIUM CHLORIDE 0.9% 1000ML 1,000 ML IV ONE ×2 (06:51→08:36)
[2019-12-27] MEDS ORDERED: LACTATED RINGER'S 1,000 ML IV ONE (07:03)
[2019-12-27 07:07] LABS: Basophils # (auto) 0.05 K/uL (0-0.2); Basophils % (auto) 0.4 %; Eosinophils # (auto) 0.03 K/uL (0-0.5); Eosinophils % (auto) 0.2 %; Hematocrit (blood only) 47.3 % (42-52); Hemoglobin 16.7 g/dL (14.0-18.0); Immature Granulocytes # (auto) 0.03 K/uL (0.00-0.02); Immature Granulocytes % (auto) 0.2 %; Lymphocytes # (auto) 3.98 K/uL (1.2-3.4); Lymphocytes % (auto) 31.1 %; Mean Corpuscular Hgb Conc 35.3 g/dL (32-36); Mean Corpuscular Volume 85.1 fL (80-100); Mean Platelet Volume 9.9 fL (7.4-10.4); Monocytes # (auto) 2.35 K/uL (0.11-0.59); Monocytes % (auto) 18.4 %; Neutrophils # (auto) 6.35 K/uL (1.4-6.5); Neutrophils % (auto) 49.7 %; Platelet Count 211 K/uL (130-400); RDW Coefficient of Variation 13.2 % (11.5-14.5); RDW Standard Deviation 41.1 fL (36.4-46.3); Red Blood Count 5.56 M/uL (4.7-6.1); White Blood Count 12.79 K/uL (4.8-10.8)
--- NOTE | 2019-12-27 07:12 | Emergency Department Note ---
History of Present Illness General Chief Complaint: Altered Mental Status Stated Complaint: Altered Mental Status, fever, Time Seen by Provider: 12/27/19 06:51 Source: EMS Mode of arrival: EMS Limitations: altered mental status History of Present Illness Provider complaint: altered mental status and decreased responsiveness Onset (ago): day(s) 1 Timing confirmed by: family member Severity: severe Consistency of symptoms: constant Context: no history of similar presentation Associated symptoms: + fever This is a 54-year-old male who presents to the ED with a chief complaint of altered mental status. EMS was called this morning for the patient as the patient was found to be confused by the family. According to EMS, the patient was sick yesterday. He was in bed most of the day. The did not see him for about a day and a half as she is being treated for cancer and was avoiding him as he seems to be ill. He was not feeling well. The son states that early this morning he crawled into bed with him. He states this was unusual and he seemed to be confused. EMS was called and found the patient to be confused. He was ambulatory and was hard to direct to the litter. The patient did have some diarrhea according to EMS this morning. The patient is nonverbal. He does not answer questions. He does not provide any history. The family is currently not in the emergency department upon his arrival. Prehospital blood sugar was performed and was slightly elevated in the high 100s. They did note that he had a temperature of 100.1. No additional history is available at this time and the patient is unable to provide any information. Based on the medications that the patient takes, it appears he has a history of diabetes type 2 and high cholesterol and hypothyroidism. Home Medications Home Medications Medication Instructions Recorded Confirmed Type aspirin 81 mg PO DAILY #0 11/21/17 12/27/19 History glyburide 1.25 mg PO QAM #0 11/21/17 12/27/19 History levothyroxine 125 mcg PO QAM #0 11/21/17 12/27/19 History metformin 1,000 mg PO BIDM #0 tab 11/21/17 12/27/19 History simvastatin [Zocor] 20 mg PO HS #0 tab 11/21/17 12/27/19 History Allergies Allergy/AdvReac Type Severity Reaction Status Date / Time NSAIDS (Non-Steroidal Allergy Severe Unverified 12/27/19 07:51 Anti-Inflamma states "Almost like and asthmatic attack" Past Med/Surg History Social History Smoking Status: Unknown if ever smoked Review of Systems Unobtainable due to reduced consciousness Physical Exam Vital Signs Vital Signs - 24 hr 12/27/19 06:37 12/27/19 06:38 12/27/19 06:40 Temperature 37.7 C H Temperature Source Oral Pulse Rate 140 H 140 H 140 H Pulse Rate from SpO2 Sensor Pulse Rhythm Regular Pulse Strength Normal Respiratory Rate 18 24 24 Respiratory Effort / Characteristics Non-Labored Spontaneous Respiratory Depth Normal Respiratory Pattern Regular Blood Pressure 126/77 126/77 Blood Pressure Mean 93 104 Blood Pressure Position Lying Pulse Oximetry 98 Oxygen Delivery Method Room Air Sepsis Recent Fever Within 48 Hours Yes Sepsis New/Unexplained Change in Mental Status Yes Sepsis Action Taken by Nursing No Action Required 12/27/19 06:50 12/27/19 06:51 12/27/19 07:00 Temperature Temperature Source Pulse Rate 145 H 137 H 132 H Pulse Rate from SpO2 Sensor 146 H 140 H 139 H Pulse Rhythm Pulse Strength Respiratory Rate 17 22 19 Respiratory Effort / Characteristics Respiratory Depth Respiratory Pattern Blood Pressure 107/85 Blood Pressure Mean 89 Blood Pressure Position Pulse Oximetry 97 93 Oxygen Delivery Method Room Air Room Air Sepsis Recent Fever Within 48 Hours Sepsis New/Unexplained Change in Mental Status Sepsis Action Taken by Nursing 12/27/19 07:03 12/27/19 07:10 12/27/19 07:14 Temperature Temperature Source Pulse Rate 133 H 127 H 130 H Pulse Rate from SpO2 Sensor 133 H 144 H Pulse Rhythm Pulse Strength Respiratory Rate 18 20 19 Respiratory Effort / Characteristics Respiratory Depth Respiratory Pattern Blood Pressure 119/88 Blood Pressure Mean 94 Blood Pressure Position Pulse Oximetry 94 Oxygen Delivery Method Room Air Sepsis Recent Fever Within 48 Hours Sepsis New/Unexplained Change in Mental Status Sepsis Action Taken by Nursing 12/27/19 07:27 12/27/19 07:30 12/27/19 07:31 Temperature Temperature Source Pulse Rate 135 H 137 H 132 H Pulse Rate from SpO2 Sensor Pulse Rhythm Pulse Strength Respiratory Rate 18 19 17 Respiratory Effort / Characteristics Respiratory Depth Respiratory Pattern Blood Pressure 129/89 141/94 H Blood Pressure Mean 111 126 Blood Pressure Position Pulse Oximetry Oxygen Delivery Method Sepsis Recent Fever Within 48 Hours Sepsis New/Unexplained Change in Mental Status Sepsis Action Taken by Nursing 12/27/19 07:40 12/27/19 07:50 12/27/19 08:00 Temperature Temperature Source Pulse Rate 130 H 127 H 126 H Pulse Rate from SpO2 Sensor 128 H 130 H 133 H Pulse Rhythm Pulse Strength Respiratory Rate 17 18 17 Respiratory Effort / Characteristics Respiratory Depth Respiratory Pattern Blood Pressure Blood Pressure Mean Blood Pressure Position Pulse Oximetry 98 95 94 Oxygen Delivery Method Room Air Room Air Room Air Sepsis Recent Fever Within 48 Hours Sepsis New/Unexplained Change in Mental Status Sepsis Action Taken by Nursing 12/27/19 08:02 12/27/19 08:10 12/27/19 08:20 Temperature Temperature Source Pulse Rate 133 H 127 H 128 H Pulse Rate from SpO2 Sensor 124 H 125 H 127 H Pulse Rhythm Pulse Strength Respiratory Rate 18 19 16 Respiratory Effort / Characteristics Respiratory Depth Respiratory Pattern Blood Pressure 103/90 Blood Pressure Mean 94 Blood Pressure Position Pulse Oximetry 96 93 Oxygen Delivery Method Sepsis Recent Fever Within 48 Hours Sepsis New/Unexplained Change in Mental Status Sepsis Action Taken by Nursing 12/27/19 08:30 12/27/19 08:40 12/27/19 08:50 Temperature Temperature Source Pulse Rate 128 H 155 H 153 H Pulse Rate from SpO2 Sensor 129 H 158 H 152 H Pulse Rhythm Pulse Strength Respiratory Rate 17 19 18 Respiratory Effort / Characteristics Respiratory Depth Respiratory Pattern Blood Pressure 147/89 H Blood Pressure Mean 100 Blood Pressure Position Pulse Oximetry 94 94 92 Oxygen Delivery Method Room Air Room Air Room Air Sepsis Recent Fever Within 48 Hours Sepsis New/Unexplained Change in Mental Status Sepsis Action Taken by Nursing 12/27/19 09:00 12/27/19 09:10 12/27/19 09:17 Temperature 38.5 C H Temperature Source Pulse Rate 137 H 132 H 135 H Pulse Rate from SpO2 Sensor 138 H 133 H 135 H Pulse Rhythm Pulse Strength Respiratory Rate 22 15 16 Respiratory Effort / Characteristics Respiratory Depth Respiratory Pattern Blood Pressure 136/74 Blood Pressure Mean 79 Blood Pressure Position Pulse Oximetry 97 99 94 Oxygen Delivery Method Room Air Room Air Room Air Sepsis Recent Fever Within 48 Hours Sepsis New/Unexplained Change in Mental Status Sepsis Action Taken by Nursing 12/27/19 09:20 12/27/19 09:30 12/27/19 09:40 Temperature 37.1 C Temperature Source Pulse Rate 137 H 135 H 124 H Pulse Rate from SpO2 Sensor 137 H 135 H 127 H Pulse Rhythm Pulse Strength Respiratory Rate 16 19 22 Respiratory Effort / Characteristics Respiratory Depth Respiratory Pattern Blood Pressure 120/67 Blood Pressure Mean 76 Blood Pressure Position Pulse Oximetry 98 97 100 Oxygen Delivery Method Sepsis Recent Fever Within 48 Hours Sepsis New/Unexplained Change in Mental Status Sepsis Action Taken by Nursing 12/27/19 09:50 12/27/19 10:00 12/27/19 10:01 Temperature Temperature Source Pulse Rate 126 H 120 H 128 H Pulse Rate from SpO2 Sensor 129 H 120 H 126 H Pulse Rhythm Pulse Strength Respiratory Rate 17 16 18 Respiratory Effort / Characteristics Respiratory Depth Respiratory Pattern Blood Pressure Blood Pressure Mean 77 Blood Pressure Position Pulse Oximetry 97 98 96 Oxygen Delivery Method Room Air Room Air Room Air Sepsis Recent Fever Within 48 Hours Sepsis New/Unexplained Change in Mental Status Sepsis Action Taken by Nursing CONSTITUTIONAL/VITAL SIGNS: Reviewed / noted above. GENERAL: The patient is in no distress. He is nonverbal. Is observed to move all 4 extremities spontaneously. INTEGUMENTARY: Warm, dry, and [employer]. No rashes. HEAD: Normocephalic. EYES: without scleral icterus or trauma. The patient does appear to have some light sensitivity with shining a light in his eyes although he does not verbalize anything. ENT/OROPHARYNX: clear and moist. LYMPHADENOPATHY/NECK: Is supple without lymphadenopathy. He does not appear to be in significant pain with rapid head movement although he does appear to be in some discomfort with hyperflexion of the legs. RESPIRATORY: Lungs clear and equal. CARDIOVASCULAR: Tachycardic rate, regular rhythm GI/ABDOMEN: Soft and nontender. No organomegaly or pulsatile mass. No rebound or guarding. Normal bowel sounds. EXTREMITIES: Warm and well perfused. BACK: No obvious CVA tenderness. NEUROLOGICAL: Patient does not verbalize. He does not respond to questions. He does not spontaneously speak. The patient is noticed to have strength in all 4 extremities with spontaneous movement. He does roll to his side to the position of comfort. The patient came with any moans. PSYCHIATRIC: Unable to assess. MUSCULOSKELETAL: Normally developed with good muscle tone. TRIAGE NURSING DOCUMENTATION REVIEWED. Procedures Lumbar Puncture Time Out Performed: Yes Patient Position: left lateral decubitus Skin Prep: Povidone-Iodine 1% Local Anesthetic: lidocaine 1% Amount of anesthesia used (mL): 5 Spinal Needle Gauge: 20G Interspace Used: L3-L4 Fluid Initially Obtained: clear Complications: none Additional Comments: total of about 10 ml collected Course Course 0655: Labs, x-ray, CT, normal saline 1 L bolus, lactated Ringer's 1 L bolus, cefepime 2 g IV 0805: Lumbar puncture 0838: NSS 1 L added (total 3L fluid) 0923: Doxycycline IV Administered Medications Doxycycline Hyclate 100 mg/ (Dextrose) 110 mls @ 50 mls/hr IV NOW STA Stop: 12/27/19 11:32 Last Admin: 12/27/19 09:50 Dose: 50 mls/hr Documented by: [id number] Discontinued Medications Sodium Chloride (Nss 1000ml) 1,000 mls @ 999 mls/hr IV .Q1H1M ONE Stop: 12/27/19 07:51 Last Infusion: 12/27/19 07:43 Dose: 0 mls/hr Documented by: [id number] Admin: 12/27/19 07:00 Dose: 999 mls/hr Documented by: [id number] Cefepime HCl (Maxipime) 2,000 mg in 20 mls @ 5 mls/min IV NOW STA; Protocol Stop: 12/27/19 06:54 Last Admin: 12/27/19 08:00 Dose: 5 mls/min Documented by: [id number] Lactated Ringer's (Lr) 1,000 mls @ 999 mls/hr IV .Q1H1M ONE Stop: 12/27/19 08:03 Last Infusion: 12/27/19 09:18 Dose: 0 mls/hr Documented by: [id number] Admin: 12/27/19 07:43 Dose: 999 mls/hr Documented by: [id number] Sodium Chloride (Nss 1000ml) 1,000 mls @ 999 mls/hr IV .Q1H1M ONE Stop: 12/27/19 09:36 Last Admin: 12/27/19 09:35 Dose: 999 mls/hr Documented by: [id number] Acetaminophen (Ofirmev) 1,000 mg in 100 mls @ 400 mls/hr IV NOW STA Stop: 12/27/19 09:40 Last Infusion: 12/27/19 09:48 Dose: 0 mls/hr Documented by: [id number] Admin: 12/27/19 09:35 Dose: 400 mls/hr Documented by: [id number] Lidocaine HCl (Buffered Lidocaine 1%) Confirm Administered Dose 20 ml INFIL .STK-MED ONE Stop: 12/27/19 07:36 Last Admin: 12/27/19 08:00 Dose: 20 ml Documented by: [id number] Medical Decision Making Differential Diagnosis Differential includes acute cardiac dysrhythmia, microinfarction, CVA, TIA, dehydration, anemia, electrolyte disturbance, seizure, trauma, intracranial bleeding, acute vascular catastrophe, thoracic aortic dissection, PE, abdominal aortic aneurysm rupture, infection, hypoglycemia, overdose, trauma. Medical Records Attestation: I reviewed the patient's medical records. Home Medications Current Medication List: was personally reviewed by me Laboratory Data Attestation: I reviewed the patient's lab results. : 12/27/19 06:45 12/27/19 06:45 Lab Results 12/27/19 12/27/19 12/27/19 Range/Units 06:45 06:45 06:45 WBC 12.79 H (4.8-10.8) K/uL RBC 5.56 (4.7-6.1) M/uL Hgb 16.7 (14.0-18.0) g/dL Hct 47.3 (42-52) % MCV 85.1 (80-100) fL MCH 30.0 (25-34) pg MCHC 35.3 (32-36) g/dL RDW Std Deviation 41.1 (36.4-46.3) fL RDW Coeff of Tra 13.2 (11.5-14.5) % Plt Count 211 (130-400) K/uL MPV 9.9 (7.4-10.4) fL Immature Gran % (Auto) 0.2 % Neut % (Auto) 49.7 % Lymph % (Auto) 31.1 % [place] % (Auto) 18.4 % Eos % (Auto) 0.2 % Baso % (Auto) 0.4 % Immature Gran # (Auto) 0.03 H (0.00-0.02) K/uL Neut # (Auto) 6.35 (1.4-6.5) K/uL Lymph # (Auto) 3.98 H (1.2-3.4) K/uL [place] # (Auto) 2.35 H (0.11-0.59) K/uL Eos # (Auto) 0.03 (0-0.5) K/uL Baso # (Auto) 0.05 (0-0.2) K/uL PT 13.6 H (9.0-12.0) Seconds INR 1.3 H (0.9-1.1) APTT 34.0 H (21.0-31.0) Seconds PTT Ratio 1.2 Sodium (136-145) mmol/L Potassium (3.5-5.1) mmol/L Chloride (98-107) mmol/L Carbon Dioxide (21-32) mmol/L Anion Gap (3-11) BUN (7-18) mg/dl Creatinine (0.6-1.4) mg/dl Est Cr Clr Drug Dosing Est GFR ( Amer) Est GFR (Non-Af Amer) BUN/Creatinine Ratio (10-20) Glucose (70-99) mg/dl Lactate (0.4-2.0) mmol/L Calcium (8.5-10.1) mg/dl Magnesium (1.8-2.4) mg/dl Total Bilirubin (0.2-1) mg/dl AST (15-37) U/L ALT (12-78) U/L Alkaline Phosphatase (45-117) U/L Ammonia (11-32) umol/L Troponin I (0-0.045) ng/ml Total Protein (6.4-8.2) gm/dl Albumin (3.4-5.0) gm/dl Globulin (2.5-4.0) gm/dl Albumin/Globulin Ratio (0.9-2) Procalcitonin 0.29 (0-0.5) ng/ml Urine Color Urine Appearance (Clear) Urine pH (4.5-7.5) Ur Specific [place] (1.000-1.030) Urine Protein (Negative) Urine Glucose (UA) (Negative) Urine Ketones (Negative) Urine Blood (Negative) Urine Nitrite (Negative) Urine Bilirubin (Negative) Urine Urobilinogen (Negative) Ur Leukocyte Esterase (Negative) CSF Appearance CSF Color Xanthrochromic CSF Specific [place] (1.006-1.008) CSF WBC (0-5) /uL CSF RBC (0-) /uL CSF Cell Count Tube # CSF Chemistry Tube # CSF Glucose (40-70) mg/dl CSF Total Protein (15-45) mg/dl CSF C.neoform/gat PCR (NotDetected) CSF CMV DNA (PCR) (NotDetected) CSF Enterovirus (PCR) (NotDetected) CSF E. coli K1 (PCR) (NotDetected) CSF H. influenzae (PCR) (NotDetected) CSF HSV I (PCR) (NotDetected) CSF HSV II (PCR) (NotDetected) CSF HHV 6 (PCR) (NotDetected) CSF L.monocytogenes PCR (NotDetected) CSF N. meningitidis PCR (NotDetected) CSF Parechovirus (PCR) (NotDetected) CSF S. agalactiae (PCR) (NotDetected) CSF S. pneumoniae (PCR) (NotDetected) CSF VZV DNA (PCR) (NotDetected) Urine Opiates Screen (Neg) Ur Methadone, Qual (Neg) Urine Barbiturates (Neg) Ur Phencyclidine (PCP) (Neg) U Amphetamin/Meth Scrn (Neg) MDMA (Ecstasy) Screen (Neg) U Benzodiazepines Scrn (Neg) Ur Cocaine Metabolite (Neg) U Marijuana (THC) Screen (Neg) Ethyl Alcohol mg/dL (0-3) mg/dl Adenovirus (PCR) (NotDetected) B. pertussis DNA (PCR) (NotDetected) B.parapertussis DNA PCR (NotDetected) Lyme Disease IgG Ab Negative (Negative) Lyme Disease IgM Ab Negative (Negative) C. pneumoniae DNA (PCR) (NotDetected) Coronavirus OC43 (PCR) (NotDetected) Coronavirus HKU1 (PCR) (NotDetected) Coronavirus 229E (PCR) (NotDetected) Coronavirus NL63 (PCR) (NotDetected) Human Metapneumovir PCR (NotDetected) Influenza Type A (PCR) (NotDetected) Influenza Type B (PCR) (NotDetected) M. pneumoniae (PCR) (NotDetected) Parainfluenza 1 (PCR) (NotDetected) Parainfluenza 2 (PCR) (NotDetected) Parainfluenza 3 (PCR) (NotDetected) Parainfluenza 4 (PCR) (NotDetected) RSV (PCR) (NotDetected) Entero/Rhino (PCR) (NotDetected) 03/29/20 03/29/20 03/29/20 Range/Units 06:45 07:15 07:15 WBC (4.8-10.8) K/uL RBC (4.7-6.1) M/uL Hgb (14.0-18.0) g/dL Hct (42-52) % MCV (80-100) fL MCH (25-34) pg MCHC (32-36) g/dL RDW Std Deviation (36.4-46.3) fL RDW Coeff of Tra (11.5-14.5) % Plt Count (130-400) K/uL MPV (7.4-10.4) fL Immature Gran % (Auto) % Neut % (Auto) % Lymph % (Auto) % [place] % (Auto) % Eos % (Auto) % Baso % (Auto) % Immature Gran # (Auto) (0.00-0.02) K/uL Neut # (Auto) (1.4-6.5) K/uL Lymph # (Auto) (1.2-3.4) K/uL [place] # (Auto) (0.11-0.59) K/uL Eos # (Auto) (0-0.5) K/uL Baso # (Auto) (0-0.2) K/uL PT (9.0-12.0) Seconds INR (0.9-1.1) APTT (21.0-31.0) Seconds PTT Ratio Sodium 125 L (136-145) mmol/L Potassium 5.1 (3.5-5.1) mmol/L Chloride 93 L (98-107) mmol/L Carbon Dioxide 21 (21-32) mmol/L Anion Gap 11.0 (3-11) BUN 25 H (7-18) mg/dl Creatinine 1.57 H (0.6-1.4) mg/dl Est Cr Clr Drug Dosing Not Reportable Est GFR ( Amer) 56.7 Est GFR (Non-Af Amer) 48.9 BUN/Creatinine Ratio 15.7 (10-20) Glucose 182 H (70-99) mg/dl Lactate (0.4-2.0) mmol/L Calcium 10.3 H (8.5-10.1) mg/dl Magnesium 1.5 L (1.8-2.4) mg/dl Total Bilirubin 1.2 H (0.2-1) mg/dl AST 25 (15-37) U/L ALT 30 (12-78) U/L Alkaline Phosphatase 72 (45-117) U/L Ammonia (11-32) umol/L Troponin I < 0.015 (0-0.045) ng/ml Total Protein 8.7 H (6.4-8.2) gm/dl Albumin 4.0 (3.4-5.0) gm/dl Globulin 4.7 H (2.5-4.0) gm/dl Albumin/Globulin Ratio 0.9 (0.9-2) Procalcitonin (0-0.5) ng/ml Urine Color Urine Appearance (Clear) Urine pH (4.5-7.5) Ur Specific [place] (1.000-1.030) Urine Protein (Negative) Urine Glucose (UA) (Negative) Urine Ketones (Negative) Urine Blood (Negative) Urine Nitrite (Negative) Urine Bilirubin (Negative) Urine Urobilinogen (Negative) Ur Leukocyte Esterase (Negative) CSF Appearance CSF Color Xanthrochromic CSF Specific [place] (1.006-1.008) CSF WBC (0-5) /uL CSF RBC (0-) /uL CSF Cell Count Tube # CSF Chemistry Tube # CSF Glucose (40-70) mg/dl CSF Total Protein (15-45) mg/dl CSF C.neoform/gat PCR (NotDetected) CSF CMV DNA (PCR) (NotDetected) CSF Enterovirus (PCR) (NotDetected) CSF E. coli K1 (PCR) (NotDetected) CSF H. influenzae (PCR) (NotDetected) CSF HSV I (PCR) (NotDetected) CSF HSV II (PCR) (NotDetected) CSF HHV 6 (PCR) (NotDetected) CSF L.monocytogenes PCR (NotDetected) CSF N. meningitidis PCR (NotDetected) CSF Parechovirus (PCR) (NotDetected) CSF S. agalactiae (PCR) (NotDetected) CSF S. pneumoniae (PCR) (NotDetected) CSF VZV DNA (PCR) (NotDetected) Urine Opiates Screen (Neg) Ur Methadone, Qual (Neg) Urine Barbiturates (Neg) Ur Phencyclidine (PCP) (Neg) U Amphetamin/Meth Scrn (Neg) MDMA (Ecstasy) Screen (Neg) U Benzodiazepines Scrn (Neg) Ur Cocaine Metabolite (Neg) U Marijuana (THC) Screen (Neg) Ethyl Alcohol mg/dL (0-3) mg/dl Adenovirus (PCR) Not Detected (NotDetected) B. pertussis DNA (PCR) Not Detected (NotDetected) B.parapertussis DNA PCR Not Detected (NotDetected) Lyme Disease IgG Ab (Negative) Lyme Disease IgM Ab (Negative) C. pneumoniae DNA (PCR) Not Detected (NotDetected) Coronavirus OC43 (PCR) Not Detected (NotDetected) Coronavirus HKU1 (PCR) Not Detected (NotDetected) Coronavirus 229E (PCR) Not Detected (NotDetected) Coronavirus NL63 (PCR) Not Detected (NotDetected) Human Metapneumovir PCR Not Detected (NotDetected) Influenza Type A (PCR) Not Detected Neg for Influ A (NotDetected) Influenza Type B (PCR) Not Detected Neg for Influ B (NotDetected) M. pneumoniae (PCR) Not Detected (NotDetected) Parainfluenza 1 (PCR) Not Detected (NotDetected) Parainfluenza 2 (PCR) Not Detected (NotDetected) Parainfluenza 3 (PCR) Not Detected (NotDetected) Parainfluenza 4 (PCR) Not Detected (NotDetected) RSV (PCR) Not Detected (NotDetected) Entero/Rhino (PCR) Not Detected (NotDetected) 12/27/19 12/27/19 12/27/19 Range/Units 07:35 07:47 07:48 WBC (4.8-10.8) K/uL RBC (4.7-6.1) M/uL Hgb (14.0-18.0) g/dL Hct (42-52) % MCV (80-100) fL MCH (25-34) pg MCHC (32-36) g/dL RDW Std Deviation (36.4-46.3) fL RDW Coeff of Tra (11.5-14.5) % Plt Count (130-400) K/uL MPV (7.4-10.4) fL Immature Gran % (Auto) % Neut % (Auto) % Lymph % (Auto) % [place] % (Auto) % Eos % (Auto) % Baso % (Auto) % Immature Gran # (Auto) (0.00-0.02) K/uL Neut # (Auto) (1.4-6.5) K/uL Lymph # (Auto) (1.2-3.4) K/uL [place] # (Auto) (0.11-0.59) K/uL Eos # (Auto) (0-0.5) K/uL Baso # (Auto) (0-0.2) K/uL PT (9.0-12.0) Seconds INR (0.9-1.1) APTT (21.0-31.0) Seconds PTT Ratio Sodium (136-145) mmol/L Potassium (3.5-5.1) mmol/L Chloride (98-107) mmol/L Carbon Dioxide (21-32) mmol/L Anion Gap (3-11) BUN (7-18) mg/dl Creatinine (0.6-1.4) mg/dl Est Cr Clr Drug Dosing Est GFR ( Amer) Est GFR (Non-Af Amer) BUN/Creatinine Ratio (10-20) Glucose (70-99) mg/dl Lactate 3.3 H* (0.4-2.0) mmol/L Calcium (8.5-10.1) mg/dl Magnesium (1.8-2.4) mg/dl Total Bilirubin (0.2-1) mg/dl AST (15-37) U/L ALT (12-78) U/L Alkaline Phosphatase (45-117) U/L Ammonia 31.1 (11-32) umol/L Troponin I (0-0.045) ng/ml Total Protein (6.4-8.2) gm/dl Albumin (3.4-5.0) gm/dl Globulin (2.5-4.0) gm/dl Albumin/Globulin Ratio (0.9-2) Procalcitonin (0-0.5) ng/ml Urine Color Urine Appearance (Clear) Urine pH (4.5-7.5) Ur Specific [place] (1.000-1.030) Urine Protein (Negative) Urine Glucose (UA) (Negative) Urine Ketones (Negative) Urine Blood (Negative) Urine Nitrite (Negative) Urine Bilirubin (Negative) Urine Urobilinogen (Negative) Ur Leukocyte Esterase (Negative) CSF Appearance CSF Color Xanthrochromic CSF Specific [place] (1.006-1.008) CSF WBC (0-5) /uL CSF RBC (0-) /uL CSF Cell Count Tube # CSF Chemistry Tube # CSF Glucose (40-70) mg/dl CSF Total Protein (15-45) mg/dl CSF C.neoform/gat PCR (NotDetected) CSF CMV DNA (PCR) (NotDetected) CSF Enterovirus (PCR) (NotDetected) CSF E. coli K1 (PCR) (NotDetected) CSF H. influenzae (PCR) (NotDetected) CSF HSV I (PCR) (NotDetected) CSF HSV II (PCR) (NotDetected) CSF HHV 6 (PCR) (NotDetected) CSF L.monocytogenes PCR (NotDetected) CSF N. meningitidis PCR (NotDetected) CSF Parechovirus (PCR) (NotDetected) CSF S. agalactiae (PCR) (NotDetected) CSF S. pneumoniae (PCR) (NotDetected) CSF VZV DNA (PCR) (NotDetected) Urine Opiates Screen (Neg) Ur Methadone, Qual (Neg) Urine Barbiturates (Neg) Ur Phencyclidine (PCP) (Neg) U Amphetamin/Meth Scrn (Neg) MDMA (Ecstasy) Screen (Neg) U Benzodiazepines Scrn (Neg) Ur Cocaine Metabolite (Neg) U Marijuana (THC) Screen (Neg) Ethyl Alcohol mg/dL < 3.0 (0-3) mg/dl Adenovirus (PCR) (NotDetected) B. pertussis DNA (PCR) (NotDetected) B.parapertussis DNA PCR (NotDetected) Lyme Disease IgG Ab (Negative) Lyme Disease IgM Ab (Negative) C. pneumoniae DNA (PCR) (NotDetected) Coronavirus OC43 (PCR) (NotDetected) Coronavirus HKU1 (PCR) (NotDetected) Coronavirus 229E (PCR) (NotDetected) Coronavirus NL63 (PCR) (NotDetected) Human Metapneumovir PCR (NotDetected) Influenza Type A (PCR) (NotDetected) Influenza Type B (PCR) (NotDetected) M. pneumoniae (PCR) (NotDetected) Parainfluenza 1 (PCR) (NotDetected) Parainfluenza 2 (PCR) (NotDetected) Parainfluenza 3 (PCR) (NotDetected) Parainfluenza 4 (PCR) (NotDetected) RSV (PCR) (NotDetected) Entero/Rhino (PCR) (NotDetected) 12/27/19 12/27/19 12/27/19 Range/Units 08:00 08:00 08:00 WBC (4.8-10.8) K/uL RBC (4.7-6.1) M/uL Hgb (14.0-18.0) g/dL Hct (42-52) % MCV (80-100) fL MCH (25-34) pg MCHC (32-36) g/dL RDW Std Deviation (36.4-46.3) fL RDW Coeff of Tra (11.5-14.5) % Plt Count (130-400) K/uL MPV (7.4-10.4) fL Immature Gran % (Auto) % Neut % (Auto) % Lymph % (Auto) % [place] % (Auto) % Eos % (Auto) % Baso % (Auto) % Immature Gran # (Auto) (0.00-0.02) K/uL Neut # (Auto) (1.4-6.5) K/uL Lymph # (Auto) (1.2-3.4) K/uL [place] # (Auto) (0.11-0.59) K/uL Eos # (Auto) (0-0.5) K/uL Baso # (Auto) (0-0.2) K/uL PT (9.0-12.0) Seconds INR (0.9-1.1) APTT (21.0-31.0) Seconds PTT Ratio Sodium (136-145) mmol/L Potassium (3.5-5.1) mmol/L Chloride (98-107) mmol/L Carbon Dioxide (21-32) mmol/L Anion Gap (3-11) BUN (7-18) mg/dl Creatinine (0.6-1.4) mg/dl Est Cr Clr Drug Dosing Est GFR ( Amer) Est GFR (Non-Af Amer) BUN/Creatinine Ratio (10-20) Glucose (70-99) mg/dl Lactate (0.4-2.0) mmol/L Calcium (8.5-10.1) mg/dl Magnesium (1.8-2.4) mg/dl Total Bilirubin (0.2-1) mg/dl AST (15-37) U/L ALT (12-78) U/L Alkaline Phosphatase (45-117) U/L Ammonia (11-32) umol/L Troponin I (0-0.045) ng/ml Total Protein (6.4-8.2) gm/dl Albumin (3.4-5.0) gm/dl Globulin (2.5-4.0) gm/dl Albumin/Globulin Ratio (0.9-2) Procalcitonin (0-0.5) ng/ml Urine Color Urine Appearance (Clear) Urine pH (4.5-7.5) Ur Specific [place] (1.000-1.030) Urine Protein (Negative) Urine Glucose (UA) (Negative) Urine Ketones (Negative) Urine Blood (Negative) Urine Nitrite (Negative) Urine Bilirubin (Negative) Urine Urobilinogen (Negative) Ur Leukocyte Esterase (Negative) CSF Appearance Clear CSF Color Colorless Xanthrochromic No xanthochromia CSF Specific [place] 1.005 L (1.006-1.008) CSF WBC 0 (0-5) /uL CSF RBC 20 (0-) /uL CSF Cell Count Tube # 3 CSF Chemistry Tube # 1 CSF Glucose 99 H (40-70) mg/dl CSF Total Protein (15-45) mg/dl CSF C.neoform/gat PCR (NotDetected) CSF CMV DNA (PCR) (NotDetected) CSF Enterovirus (PCR) (NotDetected) CSF E. coli K1 (PCR) (NotDetected) CSF H. influenzae (PCR) (NotDetected) CSF HSV I (PCR) (NotDetected) CSF HSV II (PCR) (NotDetected) CSF HHV 6 (PCR) (NotDetected) CSF L.monocytogenes PCR (NotDetected) CSF N. meningitidis PCR (NotDetected) CSF Parechovirus (PCR) (NotDetected) CSF S. agalactiae (PCR) (NotDetected) CSF S. pneumoniae (PCR) (NotDetected) CSF VZV DNA (PCR) (NotDetected) Urine Opiates Screen (Neg) Ur Methadone, Qual (Neg) Urine Barbiturates (Neg) Ur Phencyclidine (PCP) (Neg) U Amphetamin/Meth Scrn (Neg) MDMA (Ecstasy) Screen (Neg) U Benzodiazepines Scrn (Neg) Ur Cocaine Metabolite (Neg) U Marijuana (THC) Screen (Neg) Ethyl Alcohol mg/dL (0-3) mg/dl Adenovirus (PCR) (NotDetected) B. pertussis DNA (PCR) (NotDetected) B.parapertussis DNA PCR (NotDetected) Lyme Disease IgG Ab (Negative) Lyme Disease IgM Ab (Negative) C. pneumoniae DNA (PCR) (NotDetected) Coronavirus OC43 (PCR) (NotDetected) Coronavirus HKU1 (PCR) (NotDetected) Coronavirus 229E (PCR) (NotDetected) Coronavirus NL63 (PCR) (NotDetected) Human Metapneumovir PCR (NotDetected) Influenza Type A (PCR) (NotDetected) Influenza Type B (PCR) (NotDetected) M. pneumoniae (PCR) (NotDetected) Parainfluenza 1 (PCR) (NotDetected) Parainfluenza 2 (PCR) (NotDetected) Parainfluenza 3 (PCR) (NotDetected) Parainfluenza 4 (PCR) (NotDetected) RSV (PCR) (NotDetected) Entero/Rhino (PCR) (NotDetected) 12/27/19 12/27/19 12/27/19 Range/Units 08:00 08:00 08:10 WBC (4.8-10.8) K/uL RBC (4.7-6.1) M/uL Hgb (14.0-18.0) g/dL Hct (42-52) % MCV (80-100) fL MCH (25-34) pg MCHC (32-36) g/dL RDW Std Deviation (36.4-46.3) fL RDW Coeff of Tra (11.5-14.5) % Plt Count (130-400) K/uL MPV (7.4-10.4) fL Immature Gran % (Auto) % Neut % (Auto) % Lymph % (Auto) % Stearns % (Auto) % Eos % (Auto) % Baso % (Auto) % Immature Gran # (Auto) (0.00-0.02) K/uL Neut # (Auto) (1.4-6.5) K/uL Lymph # (Auto) (1.2-3.4) K/uL Stearns # (Auto) (0.11-0.59) K/uL Eos # (Auto) (0-0.5) K/uL Baso # (Auto) (0-0.2) K/uL PT (9.0-12.0) Seconds INR (0.9-1.1) APTT (21.0-31.0) Seconds PTT Ratio Sodium (136-145) mmol/L Potassium (3.5-5.1) mmol/L Chloride (98-107) mmol/L Carbon Dioxide (21-32) mmol/L Anion Gap (3-11) BUN (7-18) mg/dl Creatinine (0.6-1.4) mg/dl Est Cr Clr Drug Dosing Est GFR ( Amer) Est GFR (Non-Af Amer) BUN/Creatinine Ratio (10-20) Glucose (70-99) mg/dl Lactate (0.4-2.0) mmol/L Calcium (8.5-10.1) mg/dl Magnesium (1.8-2.4) mg/dl Total Bilirubin (0.2-1) mg/dl AST (15-37) U/L ALT (12-78) U/L Alkaline Phosphatase (45-117) U/L Ammonia (11-32) umol/L Troponin I (0-0.045) ng/ml Total Protein (6.4-8.2) gm/dl Albumin (3.4-5.0) gm/dl Globulin (2.5-4.0) gm/dl Albumin/Globulin Ratio (0.9-2) Procalcitonin (0-0.5) ng/ml Urine Color Urine Appearance (Clear) Urine pH (4.5-7.5) Ur Specific [place] (1.000-1.030) Urine Protein (Negative) Urine Glucose (UA) (Negative) Urine Ketones (Negative) Urine Blood (Negative) Urine Nitrite (Negative) Urine Bilirubin (Negative) Urine Urobilinogen (Negative) Ur Leukocyte Esterase (Negative) CSF Appearance CSF Color Xanthrochromic CSF Specific [place] (1.006-1.008) CSF WBC (0-5) /uL CSF RBC (0-) /uL CSF Cell Count Tube # CSF Chemistry Tube # CSF Glucose (40-70) mg/dl CSF Total Protein 50.2 H (15-45) mg/dl CSF C.neoform/gat PCR Not Detected (NotDetected) CSF CMV DNA (PCR) Not Detected (NotDetected) CSF Enterovirus (PCR) Not Detected (NotDetected) CSF E. coli K1 (PCR) Not Detected (NotDetected) CSF H. influenzae (PCR) Not Detected (NotDetected) CSF HSV I (PCR) Not Detected (NotDetected) CSF HSV II (PCR) Not Detected (NotDetected) CSF HHV 6 (PCR) Not Detected (NotDetected) CSF L.monocytogenes PCR Not Detected (NotDetected) CSF N. meningitidis PCR Not Detected (NotDetected) CSF Parechovirus (PCR) Not Detected (NotDetected) CSF S. agalactiae (PCR) Not Detected (NotDetected) CSF S. pneumoniae (PCR) Not Detected (NotDetected) CSF VZV DNA (PCR) Not Detected (NotDetected) Urine Opiates Screen Neg (Neg) Ur Methadone, Qual Neg (Neg) Urine Barbiturates Neg (Neg) Ur Phencyclidine (PCP) Neg (Neg) U Amphetamin/Meth Scrn Neg (Neg) MDMA (Ecstasy) Screen Neg (Neg) U Benzodiazepines Scrn Neg (Neg) Ur Cocaine Metabolite Neg (Neg) U Marijuana (THC) Screen Neg (Neg) Ethyl Alcohol mg/dL (0-3) mg/dl Adenovirus (PCR) (NotDetected) B. pertussis DNA (PCR) (NotDetected) B.parapertussis DNA PCR (NotDetected) Lyme Disease IgG Ab (Negative) Lyme Disease IgM Ab (Negative) C. pneumoniae DNA (PCR) (NotDetected) Coronavirus OC43 (PCR) (NotDetected) Coronavirus HKU1 (PCR) (NotDetected) Coronavirus 229E (PCR) (NotDetected) Coronavirus NL63 (PCR) (NotDetected) Human Metapneumovir PCR (NotDetected) Influenza Type A (PCR) (NotDetected) Influenza Type B (PCR) (NotDetected) M. pneumoniae (PCR) (NotDetected) Parainfluenza 1 (PCR) (NotDetected) Parainfluenza 2 (PCR) (NotDetected) Parainfluenza 3 (PCR) (NotDetected) Parainfluenza 4 (PCR) (NotDetected) RSV (PCR) (NotDetected) Entero/Rhino (PCR) (NotDetected) 12/27/19 Range/Units 08:10 WBC (4.8-10.8) K/uL RBC (4.7-6.1) M/uL Hgb (14.0-18.0) g/dL Hct (42-52) % MCV (80-100) fL MCH (25-34) pg MCHC (32-36) g/dL RDW Std Deviation (36.4-46.3) fL RDW Coeff of Tra (11.5-14.5) % Plt Count (130-400) K/uL MPV (7.4-10.4) fL Immature Gran % (Auto) % Neut % (Auto) % Lymph % (Auto) % Ste[place]s % (Auto) % Eos % (Auto) % Baso % (Auto) % Immature Gran # (Auto) (0.00-0.02) K/uL Neut # (Auto) (1.4-6.5) K/uL Lymph # (Auto) (1.2-3.4) K/uL [place] # (Auto) (0.11-0.59) K/uL Eos # (Auto) (0-0.5) K/uL Baso # (Auto) (0-0.2) K/uL PT (9.0-12.0) Seconds INR (0.9-1.1) APTT (21.0-31.0) Seconds PTT Ratio Sodium (136-145) mmol/L Potassium (3.5-5.1) mmol/L Chloride (98-107) mmol/L Carbon Dioxide (21-32) mmol/L Anion Gap (3-11) BUN (7-18) mg/dl Creatinine (0.6-1.4) mg/dl Est Cr Clr Drug Dosing Est GFR ( Amer) Est GFR (Non-Af Amer) BUN/Creatinine Ratio (10-20) Glucose (70-99) mg/dl Lactate (0.4-2.0) mmol/L Calcium (8.5-10.1) mg/dl Magnesium (1.8-2.4) mg/dl Total Bilirubin (0.2-1) mg/dl AST (15-37) U/L ALT (12-78) U/L Alkaline Phosphatase (45-117) U/L Ammonia (11-32) umol/L Troponin I (0-0.045) ng/ml Total Protein (6.4-8.2) gm/dl Albumin (3.4-5.0) gm/dl Globulin (2.5-4.0) gm/dl Albumin/Globulin Ratio (0.9-2) Procalcitonin (0-0.5) ng/ml Urine Color Dark Yellow Urine Appearance Clear (Clear) Urine pH 5.0 (4.5-7.5) Ur Specific [place] 1.021 (1.000-1.030) Urine Protein Negative (Negative) Urine Glucose (UA) Negative (Negative) Urine Ketones 3+ H (Negative) Urine Blood Negative (Negative) Urine Nitrite Negative (Negative) Urine Bilirubin Negative (Negative) Urine Urobilinogen Negative (Negative) Ur Leukocyte Esterase Negative (Negative) CSF Appearance CSF Color Xanthrochromic CSF Specific [place] (1.006-1.008) CSF WBC (0-5) /uL CSF RBC (0-) /uL CSF Cell Count Tube # CSF Chemistry Tube # CSF Glucose (40-70) mg/dl CSF Total Protein (15-45) mg/dl CSF C.neoform/gat PCR (NotDetected) CSF CMV DNA (PCR) (NotDetected) CSF Enterovirus (PCR) (NotDetected) CSF E. coli K1 (PCR) (NotDetected) CSF H. influenzae (PCR) (NotDetected) CSF HSV I (PCR) (NotDetected) CSF HSV II (PCR) (NotDetected) CSF HHV 6 (PCR) (NotDetected) CSF L.monocytogenes PCR (NotDetected) CSF N. meningitidis PCR (NotDetected) CSF Parechovirus (PCR) (NotDetected) CSF S. agalactiae (PCR) (NotDetected) CSF S. pneumoniae (PCR) (NotDetected) CSF VZV DNA (PCR) (NotDetected) Urine Opiates Screen (Neg) Ur Methadone, Qual (Neg) Urine Barbiturates (Neg) Ur Phencyclidine (PCP) (Neg) U Amphetamin/Meth Scrn (Neg) MDMA (Ecstasy) Screen (Neg) U Benzodiazepines Scrn (Neg) Ur Cocaine Metabolite (Neg) U Marijuana (THC) Screen (Neg) Ethyl Alcohol mg/dL (0-3) mg/dl Adenovirus (PCR) (NotDetected) B. pertussis DNA (PCR) (NotDetected) B.parapertussis DNA PCR (NotDetected) Lyme Disease IgG Ab (Negative) Lyme Disease IgM Ab (Negative) C. pneumoniae DNA (PCR) (NotDetected) Coronavirus OC43 (PCR) (NotDetected) Coronavirus HKU1 (PCR) (NotDetected) Coronavirus 229E (PCR) (NotDetected) Coronavirus NL63 (PCR) (NotDetected) Human Metapneumovir PCR (NotDetected) Influenza Type A (PCR) (NotDetected) Influenza Type B (PCR) (NotDetected) M. pneumoniae (PCR) (NotDetected) Parainfluenza 1 (PCR) (NotDetected) Parainfluenza 2 (PCR) (NotDetected) Parainfluenza 3 (PCR) (NotDetected) Parainfluenza 4 (PCR) (NotDetected) RSV (PCR) (NotDetected) Entero/Rhino (PCR) (NotDetected) ECG Data Attestation: I personally reviewed and interpreted this ECG as follows: Indication: other (Altered mental status) Rate (beats per minute): 142 Rhythm: sinus tachycardia Findings: + ST elevation (Noted in V2); no complete heart block, no PVC and no prolonged QT Blood Pressure Blood Pressure Findings: Normal blood pressure MDM Narrative This is a 54-year-old male who presents to the ED with a chief complaint of altered mental status. EMS was called this morning for the patient as the patient was found to be confused by the family. According to EMS, the patient was sick yesterday. He was in bed most of the day. The did not see him for about a day and a half as she is being treated for cancer and was avoiding him as he seems to be ill. He was not feeling well. The son states that early this morning he crawled into bed with him. He states this was unusual and he seemed to be confused. EMS was called and found the patient to be confused. He was ambulatory and was hard to direct to the litter. The patient did have some diarrhea according to EMS this morning. The patient is nonverbal. He does not answer questions. He does not provide any history. The family is currently not in the emergency department upon his arrival. Prehospital blood sugar was performed and was slightly elevated in the high 100s. They did note that he had a temperature of 100.1. No additional history is available at this time and the patient is unable to provide any information. Based on the patient's meds, he is currently being treated for type 2 diabetes, hypothyroidism and high cholesterol. His vital signs revealed tachycardia. His temperature was 37.7 here. Oxygen saturations are 98% on room air. His exam reveals that he is not verbally responding. He does not follow commands or respond to any questions. He does occasionally moan. He was noticed to move all 4 extremities and does not appear to be in any distress. The patient does not appear to be completely aware of his surroundings. During the exam, he did roll onto his left side to get more comfortable. He did seem to have some discomfort with hyperflexion of the extended leg. No obvious meningismus. The patient does appear to have some photosensitivity. The patient did develop a fever during his stay of 38.5. The laboratory studies reveal a white blood cell count of 12.7. Sodium is 125. BUN is 25 and creatinine is 1.57. Glucose is 182. Troponin was negative. Alcohol is negative. Urine showed 3+ ketones. Lactic acid level was 3.3. Chest x-ray reveals an infiltrate in the right base. Urine drug screen was negative. Flu swab was negative. Bio fire testing was negative. CSF did not show evidence of meningitis. CSF mono testing was negative. Ammonia level was normal. CT scan of the head was negative for acute disease. Lyme testing was negative. The patient was treated with IV cefepime and IV doxycycline. The patient was treated with 1 L of lactated Ringer's and 2 L of normal saline during his ED stay. He was also given IV Tylenol for his fever. He will be seen by the hospitalist for further inpatient evaluation and care. Full Covid19 precautions were utilized with this patient with staff. The patient's mental status and condition remained unchanged during his ED stay. Impression & Plan RLL pneumonia, AMS (altered mental status), Acute hyponatremia, Acute dehydration Critical Care Time Critical Care Time: Yes Total Critical Care Time: 95 I have personally spent 95 minutes of critical care time in the direct management of this patient. This includes bedside care, interpretation of diagnostic studies, and testing, discussion with consultants, patient, and [facility] members, and other required patient management activities. This 95 minutes is in excess of all separately billable procedures. Discharge Plan Visit Data Chief Complaint: Altered Mental Status Stated Complaint: Altered Mental Status, fever, ED Provider: Igor Guzmán Discharge Problem: RLL pneumonia, AMS (altered mental status), Acute hyponatremia, Acute dehydration Patient Disposition: Being Evaluated by Hospitalist Forms Stand Alone Forms: [facility] Prescriptions: No Action aspirin 81 mg Tablet,Delayed Release (Dr/Ec) 81 mg PO DAILY Qty: 0 RF: 0 glyburide 1.25 mg Tablet 1.25 mg PO QAM Qty: 0 RF: 0 levothyroxine 125 mcg Tablet 125 mcg PO QAM Qty: 0 RF: 0 simvastatin [Zocor] 20 mg Tablet 20 mg PO HS Qty: 0 RF: 0 metformin 1,000 mg Tablet 1,000 mg PO BIDM Qty: 0 RF: 0 Referrals Referrals: Marlon Dobson MD [Primary Care Provider] - Discharge Problem: RLL pneumonia Qualifiers: Pneumonia type: due to unspecified organism Qualified Code(s): J18.9 - Pneumon ia, unspecified organism AMS (altered mental status) Qualifiers: Altered mental status type: transient alteration of awareness Qualified Code(s): R40.4 - Transient alteration of awareness
[2019-12-27 07:23] LABS: Alanine Aminotransferase 30 U/L (12-78); Aspartate Aminotransferase 25 U/L (15-37); BUN Creatinine Ratio 15.7 (10-20); Blood Urea Nitrogen 25 mg/dl (7-18); Calcium 10.3 mg/dl (8.5-10.1); Carbon Dioxide 21 mmol/L (21-32); Chloride 93 mmol/L (98-107); Est GFR (African American) 56.7; Est GFR (Non-African American) 48.9; Glucose 182 mg/dl (70-99); INR 1.3 (0.9-1.1); Partial Thromboplastin Ratio 1.2; Potassium 5.1 mmol/L (3.5-5.1); Prothrombin Time 13.6 Seconds (9.0-12.0); Sodium 125 mmol/L (136-145)
[2019-12-27 07:28] LABS: Albumin Globulin Ratio 0.9 (0.9-2); Alkaline Phosphatase 72 U/L (45-117); Bilirubin,Total 1.2 mg/dl (0.2-1); Globulin 4.7 gm/dl (2.5-4.0); Magnesium 1.5 mg/dl (1.8-2.4); Total Protein 8.7 gm/dl (6.4-8.2); Troponin I < 0.015 ng/ml (0-0.045)
--- NOTE | 2019-12-27 07:29 | CT Scan Report ---
CT head/brain wo con CT DOSE: 1277.12 mGycm HISTORY: Mental status change ams, fever TECHNIQUE: Multiaxial CT images of the head were performed without the use of intravenous contrast. A dose lowering technique was utilized adhering to the principles of ALARA. Comparison: None. Findings: The paranasal sinuses and mastoid air cells are clear. The calvarium and skull base are int act. The ventricles and sulci are within normal limits. There is no mass, hematoma, midline shift, or acute infarct. Impression: No acute intracranial abnormality. ACT 112: Negative or not required by law. The above report was generated using voice recognition software. It may contain grammatical, syntax or spelling errors. Electronically signed by: Melvin Mcgovern M.D. 12/27/2019 7:28 AM
[2019-12-27] MEDS ORDERED: XYLOCAINE 1%/SOD BICARB 20 ML VIAL INFIL ONE (07:35)
[2019-12-27 07:47] LABS: Procalcitonin 0.29 ng/ml (0-0.5)
--- NOTE | 2019-12-27 07:52 | XRay Report ---
XR chest 1V portable CLINICAL HISTORY: SEPSIS dyspnea COMPARISON STUDY: 11/21/2017 FINDINGS: Poorly defined parenchymal infiltrate right base. Lungs otherwise appear clear. No signific ant cardiac enlargement. IMPRESSION: Infiltrate right base. ACT 112: Negative or not required by law. The above report was generated using voice recognition software. It may contain grammatical, syntax or spelling errors. Electronically signed by: Melvin Mcgovern M.D. 12/27/2019 7:51 AM
[2019-12-27 07:54] LABS: Lyme Ab IgG w/WB Rflx Negative (Negative); Lyme Ab IgM w/WB Rflx Negative (Negative)
[2019-12-27 08:22] LABS: Appearance Urine Clear (Clear); Bilirubin Urine Negative (Negative); Blood Urine Negative (Negative); Color Urine Dark Yellow; Glucose Urine UA Negative (Negative); Ketones Urine 3+ (Negative); Leukocyte Esterase Urine Negative (Negative); Nitrite Urine Negative (Negative); Protein Urine Negative (Negative); Specific Gravity Urine 1.021 (1.000-1.030); Urobilinogen Urine Negative (Negative)
[2019-12-27 08:24] LABS: CSF Chemistry Tube # 1
[2019-12-27 08:31] LABS: CSF Glucose 99 mg/dl (40-70)
[2019-12-27 08:36] LABS: Influenza A virus by PCR Neg for Influ A (Neg); Influenza B virus by PCR Neg for Influ B (Neg)
[2019-12-27 08:41] LABS: Appearance CSF Clear; CSF Count Tube # 3; CSF Xanthrochromic No xanthochromia; Color CSF Colorless; Red Blood Cell CSF (A) 20 /uL (0-); White Blood Cell CSF (A) 0 /uL (0-5)
[2019-12-27 08:44] LABS: Amphetamines+Metham, Urine Neg (Neg); Barbiturates, Urine Neg (Neg); Benzodiazepine, Urine Neg (Neg); Cocaine, Urine Neg (Neg); MDMA (Ecstacy), Urine Neg (Neg); Methadone, Urine Neg (Neg); Opiate, Urine Neg (Neg); Phencyclidine, Urine Neg (Neg)
[2019-12-27 08:59] LABS: Adenovirus PCR Not Detected (NotDetected); Bordetella parapertussis PCR Not Detected (NotDetected); Bordetella pertussis PCR Not Detected (NotDetected); Chlamydia pneumoniae PCR Not Detected (NotDetected); Coronavirus 229E PCR Not Detected (NotDetected); Coronavirus HKU1 PCR Not Detected (NotDetected); Coronavirus NL63 PCR Not Detected (NotDetected); Coronavirus OC43PCR Not Detected (NotDetected); Human Metapneumovirus PCR Not Detected (NotDetected); Influenza A PCR Not Detected (NotDetected); Influenza B PCR Not Detected (NotDetected); Mycoplasma pneumoniae PCR Not Detected (NotDetected); Parainfluenza Virus 1 PCR Not Detected (NotDetected); Parainfluenza Virus 2 PCR Not Detected (NotDetected); Parainfluenza Virus 3 PCR Not Detected (NotDetected); Parainfluenza Virus 4 PCR Not Detected (NotDetected); Respiratory Syncytial VirusPCR Not Detected (NotDetected); Rhinovirus/Enterovirus PCR Not Detected (NotDetected)
[2019-12-27] MEDS ORDERED: DOXYCYCLINE HYCLATE 100 MG in DEXTROSE 5% 100 ML IV STA (09:21)
[2019-12-27] MEDS ORDERED: ACETAMINOPHEN 65 ML IV ONE (09:25)
[2019-12-27] MEDS ORDERED: ACETAMINOPHEN 1,000 MG/100 ML VIAL IV STA (09:26)
[2019-12-27 09:44] LABS: Cryptococcus neoformans/ga PCR Not Detected (NotDetected); Cytomegalovirus PCR Not Detected (NotDetected); Enterovirus PCR Not Detected (NotDetected); Escherichia coli K1 PCR Not Detected (NotDetected); Haemophilius influenzae PCR Not Detected (NotDetected); Herpes Simplex Virus 1 PCR Not Detected (NotDetected); Herpes Simplex Virus 2 PCR Not Detected (NotDetected); Human Herpes Virus 6 PCR Not Detected (NotDetected); Human Parechovirus PCR Not Detected (NotDetected); Listeria monocytogenes PCR Not Detected (NotDetected); Neisseria meningitidis PCR Not Detected (NotDetected); Streptococcus agalactiae PCR Not Detected (NotDetected); Streptococcus pneumoniae PCR Not Detected (NotDetected); Varicella Zoster Virus PCR Not Detected (NotDetected)
--- NOTE | 2019-12-27 10:16 | History & Physical Report ---
Date of Service December 27, 2019 Assessment & Plan (1) Sepsis: Resuscitated. Monitor BP closely in PCU, may need pressor support. Abx per plan below. (2) Acute metabolic encephalopathy: Differential includes but not limited to encephalitis, metabolic encephalopathy 2/2 pneumonia or other viral illness. Cont Rocephin/Doxy for treatment of underlying pneumonia. Cont supportive care efforts for ?aseptic meningitis. Pt with sepsis appears improved and resuscitated for now. Monitor closely for decompensation in PCU. May need BP support. (3) RLL pneumonia: Rocephin/Doxy, blood and sputum cultures pending (4) Acute hyponatremia: Likely 2/2 dehydration with poor PO intake recently. Received 3 L in the ER. Recheck BMP on floor. (5) Acute dehydration: IVF in ER. Cont to monitor. If unable to eat or unsafe to feed, will give IVF for hydration support in this febrile patient. (6) EKG abnormality: Isolated V2 ST elevation without signs of ACS or recent symptoms of a clear ACS. No known cardiac history. Trop negative. REepeat EKG and cardiac enzyme panel now. (7) Hypothyroidism: Replace IV until reliably tolerating PO. (8) DMII (diabetes mellitus, type 2): Basal bolus insulin. Hold home meds while hospitalized. Euglycemic at this time. (9) Hyperlipidemia: Cont lipitor per home regimen as this has been shown to have some positive effects in COVID-19 infection from an anti-inflammatory/immune standpoint. (10) DVT prophylaxis: Lovenox Full Code Dispo-to PCU/airborne precautions. [facility] History of Present Illness Chief Complaint: altered mental status Primary Care Provider: Marlon Dobson MD 54 yo M with DMII, HLP and hypothyroidism presents to the ER via EMS after family was concerned for confusion. Per his and son who live with him, he fell ill Thurs arminda (4 days ago) with generalized malaise and fever. On Fri he developed a mild, nonproductive cough and a low grade fever 99.5F. Family encouraged him to go to seek medical attention but he refused. He continued to be ill with fever and respiratory symptoms and fatigue on Sat and was found to be confused this morning after crawling into bed with his son. 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 He has no known COVID exposure, but has been sick with respiratory symptoms and fever since 12/03. He reports being given an empiric course of tamiflu without resolution of symptoms and was then placed on antibiotics for 10 days. A few days after finishing the antibiotics he is only starting to have a resolution of his cough and other symptoms. He reports trying to isolate from his mom and dad because of this and because his mother has cancer and is currently undergoing chemotherapy. The patient reportedly has been working at home for the last month, complying with quarantine instructions, and has only left the house for trips to the grocery store. There have been no known visitors to the house in the last month. The of the patient has not been ill with symptoms. Workup in the ER included a head CT which was normal, BMP reveals ?dehydration with hyponatremia and JOEL (confirmed with pt was not eating well for the past 2-3 days), CBC with mild leukocytosis, CT head negative, respiratory washings for flu and Biofire respiratory panel were negative. Blood and sputum cultures pending. CXR reveals a RLL infiltrate consistent with pneumonia. An LP reveals aseptic meningitis. The patient is encephalopathic and febrile. He is ambulatory but unsteady on his feet. He does not appears to have any gross focal neurologic deficits but is not oriented to person, place or time. He is able to answer questions such as are you in pain?, and denies this. He is able to follow instructions. He was given 2L of NSS and 1L of LR to treat his sepsis, and was administered Cefepime and doxycycline. I discussed the case with his son and who are aware of the plan and all questions answered. Airborne precautions were observed. Allergies Allergy/AdvReac Type Severity Reaction Status Date / Time NSAIDS (Non-Steroidal Allergy Severe Unverified 12/27/19 07:51 Anti-Inflamma states "Almost like and asthmatic attack" Home Medications Home Medications Medication Instructions Recorded Confirmed Type aspirin 81 mg PO DAILY #0 11/21/17 12/27/19 History glyburide 1.25 mg PO QAM #0 11/21/17 12/27/19 History levothyroxine 125 mcg PO QAM #0 11/21/17 12/27/19 History metformin 1,000 mg PO BIDM #0 tab 11/21/17 12/27/19 History simvastatin [Zocor] 20 mg PO HS #0 tab 11/21/17 12/27/19 History Past Med/Surg History Medical History (Updated 12/27/19 @ 18:31 by Krista Fields DO) DMII (diabetes mellitus, type 2) (Chronic) Hyperlipidemia (Chronic) Hypothyroidism (Chronic) Surgical History (Updated 12/27/19 @ 18:34 by Krista Fields DO) No pertinent past surgical history Family History (Updated 12/27/19 @ 18:40 by Krista Fields DO) Other No pertinent family history Social History Communication Ability: confused Current Living Situation: Spouse Smoking Status: Unknown if ever smoked Review of Systems Review of Systems: Unobtainable due to mental health condition (confused) Physical Exam Physical Exam: CONSTITUTIONAL: WNWD, vitals as above, generally well- appearing EYES: EOMI bilaterally, PERRL, normal conjunctivae, no scleral icterus ENT: external ear and nose normal, oropharynx clear, mucous membranes dry. Facial skin with erythematous irritation in T-zone and cheeks. NECK: trachea midline, no lymphadenopathy RESPIRATORY: clear to auscultation bilaterally, no crackles, rales or wheezes, normal respiratory effort CARDIOVASCULAR: regular rate and rhythm, S1 and 2 heard without murmurs, gallops or rubs, no JVD, no peripheral edema CHEST: inspection of chest was normal GASTROINTESTINAL: normal bowel sounds, soft, nontender, nondistended, no guarding MUSCULOSKELETAL: strength 5/5 throughout, head is normocephalic and atraumatic, neck supple, ambulating independently SKIN: warm and dry NEUROLOGIC: patellar DTRs could not be elicited-pt guarding with test. PERRL, EOMI, no facial palsy, no dysarthria. CN 2-12 grossly intact, normal speech, no tremor PSYCHIATRIC: alert cooperative and disoriented Results & Data Results & Data ([facility]) Vital Signs (Past 12 Hours) Vital Signs Temp Pulse Resp BP Pulse Ox 12/27/19 10:01 128 H 18 96 12/27/19 10:00 120 H 16 98 12/27/19 09:50 126 H 17 97 12/27/19 09:40 37.1 C 124 H 22 100 12/27/19 09:30 135 H 19 120/67 97 12/27/19 09:20 137 H 16 98 12/27/19 09:17 135 H 16 136/74 94 12/27/19 09:10 132 H 15 99 12/27/19 09:00 38.5 C H 137 H 22 97 12/27/19 08:50 153 H 18 92 12/27/19 08:40 155 H 19 94 12/27/19 08:30 128 H 17 147/89 H 94 12/27/19 08:20 128 H 16 93 12/27/19 08:10 127 H 19 96 12/27/19 08:02 133 H 18 103/90 12/27/19 08:00 126 H 17 94 12/27/19 07:50 127 H 18 95 12/27/19 07:40 130 H 17 98 12/27/19 07:31 132 H 17 141/94 H 12/27/19 07:30 137 H 19 12/27/19 07:27 135 H 18 129/89 12/27/19 07:14 130 H 19 119/88 12/27/19 07:10 127 H 20 94 12/27/19 07:03 133 H 18 12/27/19 07:00 132 H 19 12/27/19 06:51 137 H 22 107/85 93 12/27/19 06:50 145 H 17 97 12/27/19 06:40 140 H 24 12/27/19 06:38 140 H 24 126/77 12/27/19 06:37 37.7 C H 140 H 18 126/77 98 Laboratory Results Short CBC 12/27/19 Range/Units 06:45 WBC 12.79 H (4.8-10.8) K/uL Hgb 16.7 (14.0-18.0) g/dL Hct 47.3 (42-52) % Plt Count 211 (130-400) K/uL BMP 12/27/19 06:45 Sodium 125 L Potassium 5.1 Chloride 93 L Carbon Dioxide 21 BUN 25 H Creatinine 1.57 H Glucose 182 H Calcium 10.3 H Cardiac Enzymes 12/27/19 Range/Units 06:45 Troponin I < 0.015 (0-0.045) ng/ml Liver Function 12/27/19 Range/Units 06:45 Total Bilirubin 1.2 H (0.2-1) mg/dl AST 25 (15-37) U/L ALT 30 (12-78) U/L Alkaline Phosphatase 72 (45-117) U/L Albumin 4.0 (3.4-5.0) gm/dl Urine 12/27/19 Range/Units 08:10 Urine Color Dark Yellow Urine Appearance Clear (Clear) Urine pH 5.0 (4.5-7.5) Ur Specific [place] 1.021 (1.000-1.030) Urine Protein Negative (Negative) Urine Glucose (UA) Negative (Negative) Code Status & VTE Plan Code Status full code (1) RLL pneumonia Pneumonia type: due to unspecified organism Qualified Code(s): J18.9 - Pneumonia, unspecified organism
[2019-12-27] MEDS ORDERED: CARBOHYDRATES FOR HYPOGLYCEMIA PO PRN (12:19)
[2019-12-27] MEDS ORDERED: GLUCOSE 40% GEL 15 GM TUBE PO PRN (12:19)
[2019-12-27] MEDS ORDERED: GLUCAGON FOR INJ 1 MG VIAL SQ PRN (12:19)
[2019-12-27] MEDS ORDERED: POLYETHYLENE (MIRALAX) 17 GM PACK PO PRN (12:19)
[2019-12-27] MEDS ORDERED: GLUCOSE 10 TABS/TUBE PO PRN (12:19)
[2019-12-27] MEDS ORDERED: ACETAMINOPHEN 325 MG TAB PO PRN (12:19)
[2019-12-27] MEDS ORDERED: ONDANSETRON INJ 2 MG/ML 2 ML VIAL IV PRN (12:19)
[2019-12-27] MEDS ORDERED: DEXTROSE 50% 50 ML SYRINGE IV PRN (12:19)
--- NOTE | 2019-12-27 12:21 | Electrocardiogram Report ---
Test Reason : Blood Pressure : / mmHG Vent. Rate : 142 BPM Atrial Rate : 142 BPM P-R Int : 148 ms QRS Dur : 078 ms QT Int : 354 ms P-R-T Axes : 048 051 061 degrees QTc Int : [address] elevation consider anterior injury or acute infarct ACUTE TX / STEMI Abnormal ECG When compared with ECG of 21-NOV-2017 06:00, Vent. rate has increased BY 55 BPM Confirmed by Jet Sanderson ([id number]) on 12/27/2019 12:21:00 PM Referred By: Confirmed By:Jet Sanderson
[2019-12-27] MEDS: MAGNESIUM SULFATE / D5W 1 GM/100 ML BAG IV SCH ×3 (13:06→15:09)
[2019-12-27 13:13] LABS: BUN Creatinine Ratio 18.5 (10-20); Blood Urea Nitrogen 22 mg/dl (7-18); Carbon Dioxide 20 mmol/L (21-32); Chloride 100 mmol/L (98-107); Est GFR (Non-African American) 69.1; Glucose 132 mg/dl (70-99); Potassium 4.9 mmol/L (3.5-5.1); Sodium 128 mmol/L (136-145)
[2019-12-27 13:18] LABS: Creatine Kinase 194 U/L (39-308); Creatine Kinase MB 1.1 ng/ml (0.5-3.6); Troponin I < 0.015 ng/ml (0-0.045)
[2019-12-27] MEDS: INSULIN ASPART 100 UNITS/ML 3 ML PEN SC SCH ×3 (13:29→22:00)
[2019-12-27] MEDS: SODIUM CHLORIDE 0.9% 1000ML 1,000 ML IV SCH ×2 (15:09→21:50)
[2019-12-27] MEDS: cefTRIAXone SODIUM 2,000 MG in DEXTROSE 5% 50 ML IV SCH (16:07)
[2019-12-27] MEDS: SIMVASTATIN 20 MG TAB PO SCH (21:49)
[2019-12-27] MEDS: ENOXAPARIN INJ 40 MG/0.4 ML SYR SQ SCH (21:49)
[2019-12-27] MEDS: INSULIN GLARGINE SOLOSTAR 100 UNITS/ML 3 ML PEN SC SCH (22:01)
[2019-12-28 06:13] LABS: Basophils # (auto) 0.04 K/uL (0-0.2); Basophils % (auto) 0.5 %; Eosinophils % (auto) 2.6 %; Hematocrit (blood only) 37.7 % (42-52); Immature Granulocytes # (auto) 0.01 K/uL (0.00-0.02); Immature Granulocytes % (auto) 0.1 %; Lymphocytes # (auto) 2.26 K/uL (1.2-3.4); Lymphocytes % (auto) 29.9 %; Mean Corpuscular Hemoglobin 29.6 pg (25-34); Mean Corpuscular Hgb Conc 34.5 g/dL (32-36); Mean Corpuscular Volume 85.9 fL (80-100); Mean Platelet Volume 9.8 fL (7.4-10.4); Monocytes # (auto) 1.02 K/uL (0.11-0.59); Monocytes % (auto) 13.5 %; Neutrophils # (auto) 4.04 K/uL (1.4-6.5); Neutrophils % (auto) 53.4 %; Platelet Count 184 K/uL (130-400); RDW Coefficient of Variation 13.4 % (11.5-14.5); RDW Standard Deviation 42.4 fL (36.4-46.3); Red Blood Count 4.39 M/uL (4.7-6.1); White Blood Count 7.57 K/uL (4.8-10.8)
[2019-12-28 06:45] LABS: Calcium 9.3 mg/dl (8.5-10.1); Creatinine Clr Calc Pharmacy 90.7 ml/min; Est GFR (Non-African American) 89.8; Magnesium 1.7 mg/dl (1.8-2.4)
[2019-12-28] MEDS ORDERED: MAGNESIUM SULFATE IV SCH (08:30)
[2019-12-28] MEDS ORDERED: SODIUM CHLORIDE 0.9% IV SCH (08:30)
[2019-12-28 08:46] LABS: Estimated Average Glucose 140 mg/dl; Hemoglobin A1C 6.5 % (4.5-5.6)
[2019-12-28] MEDS: LEVOTHYROXINE SODIUM 62.5 MCG in SYRINGE 0 ML IV SCH (08:48)
[2019-12-28] MEDS: DOXYCYCLINE HYCLATE 100 MG in DEXTROSE 5% 100 ML IV SCH (08:49)
[2019-12-28] MEDS: INSULIN GLARGINE SOLOSTAR 100 UNITS/ML 3 ML PEN SC SCH (09:11)
[2019-12-28] MEDS: INSULIN ASPART 100 UNITS/ML 3 ML PEN SC SCH ×3 (09:12→18:32)
--- NOTE | 2019-12-28 10:50 | Infectious Disease Consult ---
Date of Consultation December 28, 2019 Assessment & Plan (1) RLL pneumonia: suspect CAP, continue current abx. follow culture results. obtain sputum culture if able. No CSF evidence to suggest encephalitis. History of Present Illness Attending Physician: Krista Fields DO pt admitted after being found by family to have confusion. In ER he was found to have temp 38.5, now afebrile. CXR showed right basilar infiltrate. Due to confusion, LP was done, 0 wbc noted, gram stain with no organisms, culture pending. wbc 12 in Er, now 7, creat normal. UA negative. Placed on rocephin and doxy for concern of CAP. CSF biofire negative, resp biofire negative as well. UDS negative. COVID testing pending. Blood cultures negative, tolerating abx. Per H&P pt has had ongoing cough and low grade fever at home for several days, did not seek care. H&P also states son has been sick with same, does not appear that any outpatient workup for either son or patient done. 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 no known travel history documented. Placed in airborne isolation pending COVID testing. Allergies Allergy/AdvReac Type Severity Reaction Status Date / Time NSAIDS (Non-Steroidal Allergy Severe Unverified 12/27/19 07:51 Anti-Inflamma states "Almost like and asthmatic attack" Home Medications Home Medications Medication Instructions Recorded Confirmed Type aspirin 81 mg PO DAILY #0 11/21/17 12/27/19 History glyburide 1.25 mg PO QAM #0 11/21/17 12/27/19 History levothyroxine 125 mcg PO QAM #0 11/21/17 12/27/19 History metformin 1,000 mg PO BIDM #0 tab 11/21/17 12/27/19 History simvastatin [Zocor] 20 mg PO HS #0 tab 11/21/17 12/27/19 History Patient History Medical History DMII (diabetes mellitus, type 2) (Chronic) Hyperlipidemia (Chronic) Hypothyroidism (Chronic) Surgical History No pertinent past surgical history Family History Other No pertinent family history Social History Communication Ability: confused Current Living Situation: Spouse Smoking Status: Unknown if ever smoked Physical Exam Physical Exam: I did not perform physical on the this patient to preserve PPE pending COVID testing results. Results & Data ([facility]) Vital Signs (Past 12 Hours) Vital Signs Temp Pulse Pulse Resp BP Pulse Ox 12/28/19 08:53 37.3 C 111 H 20 99/67 L 98 12/28/19 02:37 37.3 C 117 H 98 H 121/77 95 12/28/19 00:00 114 H 12/27/19 23:05 37.5 C 122 H 20 116/63 94 Laboratory Results Microbiology 12/27/19 08:00 Cerebral Spinal Fluid Gram Stain - Final 12/27/19 08:00 Cerebral Spinal Fluid CSF Culture - Preliminary No growth to date. 12/27/19 07:47 Blood Aerobic Blood Culture - Preliminary No growth in Aerobic bottle after 24 hours. 12/27/19 07:47 Blood Anaerobic Blood Culture - Preliminary No growth in Anaerobic bottle after 24 hours. 12/27/19 06:45 Blood Aerobic Blood Culture - Preliminary No growth in Aerobic bottle after 24 hours. PG Care Time/CCT Total # of Minutes Spent Total Time Spent with Patient: Total time spent is greater than 50% in coordination of care (as documented) at patient's floor/unit and/or counseling patient: Coding Level of Care Code 16518 Inpt Consult Level 2 Diagnoses RLL pneumonia J18.9 Pneumonia type: due to unspecified organism (1) RLL pneumonia Pneumonia type: due to unspecified organism Qualified Code(s): J18.9 - Pneumonia, unspecified organism
[2019-12-28] MEDS: LACTATED RINGER'S 1,000 ML IV SCH ×2 (11:03→21:28)
--- NOTE | 2019-12-28 11:11 | Electrocardiogram Report ---
Test Reason : Blood Pressure : / mmHG Vent. Rate : 105 BPM Atrial Rate : 105 BPM P-R Int : 154 ms QRS Dur : 080 ms QT Int : 346 ms P-R-T Axes : 049 055 051 degrees QTc Int : 457 ms Sinus tachycardia Otherwise normal ECG When compared with ECG of 27-DEC-2019 06:38, ST elevation no longer present Confirmed by Jet Sanderson ([id number]) on 12/28/2019 11:10:34 AM Referred By: Marlon Dobson Confirmed By:Jet Sanderson
--- NOTE | 2019-12-28 17:10 | Hospitalist Progress Note ---
Date of Service December 28, 2019 Assessment & Plan (1) Sepsis: Resuscitated. Cont treatment of pneumonia below. (2) Acute metabolic encephalopathy: Likely 2/2 underlying pneumonia. Appreciate ID thoughts that encephalitis is unlikely here. Mental status has improved to the point that he now knows his name but is still otherwise disoriented. He is ambulating independently and is able to follow instructions and answer questions. He is improved. Cont treatment of pneumonia. (3) RLL pneumonia: Rocephin/Doxy, Blood cultures are negative. (4) Metabolic acidosis: Slightly lower bicarbonate possibly related to recent JOEL in sepsis and/or the use of NSS for resuscitation overnight. Will monitor BMP in am and obtain pH at that time, also, to ensure he is starting to improve. (5) Acute hyponatremia: Likely 2/2 dehydration with poor PO intake recently. Received 3 L in the ER. Some improvement in sodium with continued IVF. As he is NPO except small sips of water, will cont IVF and switch to LR to avoid hyperchloremic metabolic acidosis. (6) Hypomagnesemia: Replace and repeat in am. (7) EKG abnormality: resolved. No evidence of troponin rise and no chest pain. Cont to monitor in PCU for now. (8) Hypothyroidism: Cont Synthroid IV until reliably tolerating PO. (9) DMII (diabetes mellitus, type 2): A1C is 6.5 and glucose is remaining in the 120s consistently with no bolus coverage needed. Will decrease Lantus to 10 Units daily while NPO and cont PRN Novolog. Although carb coverage is ordered, he remains NPO so this is not being given. (10) Hyperlipidemia: Cont lipitor per home regimen as this has been shown to have some positive effects in COVID-19 infection from an anti-inflammatory/immune standpoint. (11) DVT prophylaxis: Lovenox Full Code Dispo-cont PCU/airborne precautions. I spoke with his and updated her. All questions were answered to her satisfaction. DO Jaquan Pinedacarson [facility] Hospitalist Admission and Anticipated Discharge Date Admission Date: December 27, 2019 Anticipated date of discharge: 01/01/20 Subjective Pt appears improved Knows his name is Román but cannot state his last name. Disoriented to place and time and purpose of his stay here. ROS is unreliable. Tells me he hasn't coughed, however, [employer] providing 1 to 1 obs reports that he has Pt denies pain and appears clinically improved. Tm overnight was 37.6F Does not require oxygen support at this time. Still unsafe to eat. Able to ambulate independently, however. Review of Systems Review of Systems: All systems reviewed & are unremarkable except as noted in Subjective (ROS is possibly unreliable 2/2 disorientation however) Physical Exam Physical Exam: CONSTITUTIONAL: WNWD, vitals as above, generally well- appearing EYES: PERRL, normal conjunctivae, no scleral icterus ENT: external ear and nose normal, oropharynx clear, mucous membranes dry. crusting in mouth and on teeth. Skin irritation on face has improved. NECK: trachea midline, no lymphadenopathy RESPIRATORY: clear to auscultation bilaterally, no crackles, rales or wheezes, normal respiratory effort CARDIOVASCULAR: regular rate and rhythm, S1 and 2 heard without murmurs, gallops or rubs, no JVD, no peripheral edema CHEST: inspection of chest was normal GASTROINTESTINAL: soft, nontender, nondistended, no guarding MUSCULOSKELETAL: strength 5/5 throughout, head is normocephalic and atraumatic, neck supple, ambulating independently SKIN: warm and dry NEUROLOGIC: patellar DTRs 2/4 bilaterally, PERRL, EOMI, no facial palsy, no dysarthria. CN 2-12 grossly intact, normal speech, no tremor PSYCHIATRIC: alert cooperative and disoriented but now knows that his first name is Román. Results & Data Results & Data ([facility]) Vital Signs (Past 12 Hours) Vital Signs Temp Pulse Resp BP Pulse Ox 12/28/19 12:34 36.8 C 96 H 18 131/88 97 12/28/19 08:53 37.3 C 111 H 20 99/67 L 98 Laboratory Results Short CBC 12/28/19 Range/Units 05:42 WBC 7.57 (4.8-10.8) K/uL Hgb 13.0 L D (14.0-18.0) g/dL Hct 37.7 L (42-52) % Plt Count 184 (130-400) K/uL BMP 12/28/19 05:56 Sodium 129 L Potassium 5.0 Chloride 102 Carbon Dioxide 18 L BUN 14 Creatinine 0.95 Glucose 112 H Calcium 9.3 Medications Administered Current Inpatient Medications Acetaminophen (Tylenol) 650 mg PO Q4H PRN PRN Reason: Pain or Fever Stop: 01/26/20 12:18 Dextrose (Dextrose 50%) 25 - 50 ml IV UD PRN; Protocol PRN Reason: Hypoglycemia Protocol Stop: 01/26/20 12:18 Enoxaparin Sodium (Lovenox) 40 mg SQ HS [facility] Stop: 01/26/20 20:59 Last Admin: 12/27/19 21:49 Dose: 40 mg Documented by: Glucagon (Glucagen) 1 mg SQ UD PRN; Protocol PRN Reason: Hypoglycemia Protocol Stop: 01/26/20 12:18 Glucose (Dex4 Glucose) 4 - 8 tabs PO UD PRN; Protocol PRN Reason: Hypoglycemia Protocol Stop: 01/26/20 12:18 Glucose (Glucose 40%) 15 - 30 gm PO UD PRN; Protocol PRN Reason: Hypoglycemia Protocol Stop: 01/26/20 12:18 Ceftriaxone Sodium 2,000 mg/ (Dextrose) 70 mls @ 100 mls/hr IV DAILY@1600 [facility]; Protocol Stop: 01/03/20 15:59 Last Infusion: 12/27/19 16:53 Dose: Infused Documented by: Levothyroxine Sodium 62.5 mcg/ (Syringe) 3.125 mls @ 2 mls/min IV DAILY@0900 [facility] Stop: 01/27/20 08:59 Last Admin: 12/28/19 08:48 Dose: 2 mls/min Documented by: Doxycycline Hyclate 100 mg/ (Dextrose) 110 mls @ 50 mls/hr IV DAILY [facility]; Protocol Stop: 01/03/20 08:59 Last Infusion: 12/28/19 11:03 Dose: Infused Documented by: Lactated Ringer's (Lr) 1,000 mls @ 80 mls/hr IV .[id number] [facility] Stop: 01/27/20 09:44 Last Admin: 12/28/19 11:03 Dose: 80 mls/hr Documented by: Insulin Aspart (Novolog Flexpen) 0 units SC Q6 [facility] Stop: 01/27/20 11:59 Last Admin: 12/28/19 12:35 Dose: Not Given Documented by: Insulin Glargine (Lantus Solostar Pen) 10 units SC BID [facility] Stop: 01/26/20 20:59 Last Admin: 12/28/19 09:11 Dose: 10 units Documented by: Miscellaneous (Carbohydrates For Hypoglycemia) 15 - 30 gm PO UD PRN PRN Reason: Hypoglycemia Protocol Stop: 01/26/20 12:18 Ondansetron HCl (Zofran) 4 mg IV Q6H PRN PRN Reason: Nausea Stop: 01/26/20 12:18 Polyethylene Glycol (Miralax Powder Packet) 17 gm PO DAILY PRN PRN Reason: Constipation Stop: 01/26/20 12:18 Simvastatin (Zocor) 20 mg PO HS [facility] Stop: 01/26/20 20:59 Last Admin: 12/27/19 21:49 Dose: 20 mg Documented by: (1) RLL pneumonia Pneumonia type: due to unspecified organism Qualified Code(s): J18.9 - Pneumonia, unspecified organism
[2019-12-28] MEDS: cefTRIAXone SODIUM 2,000 MG in DEXTROSE 5% 50 ML IV SCH (17:32)
[2019-12-28] MEDS: SIMVASTATIN 20 MG TAB PO SCH (21:27)
[2019-12-28] MEDS: ENOXAPARIN INJ 40 MG/0.4 ML SYR SQ SCH (21:28)
[2019-12-29] MEDS: INSULIN ASPART 100 UNITS/ML 3 ML PEN SC SCH ×5 (00:13→22:03)
[2019-12-29 06:02] LABS: Hematocrit (blood only) 36.6 % (42-52); Hemoglobin 12.9 g/dL (14.0-18.0); Mean Corpuscular Hemoglobin 29.5 pg (25-34); Mean Corpuscular Hgb Conc 35.2 g/dL (32-36); Mean Corpuscular Volume 83.8 fL (80-100); Mean Platelet Volume 9.7 fL (7.4-10.4); Platelet Count 182 K/uL (130-400); RDW Coefficient of Variation 13.2 % (11.5-14.5); RDW Standard Deviation 40.3 fL (36.4-46.3); Red Blood Count 4.37 M/uL (4.7-6.1); White Blood Count 6.75 K/uL (4.8-10.8)
[2019-12-29 06:35] LABS: BUN Creatinine Ratio 14.9 (10-20); Calcium 9.5 mg/dl (8.5-10.1); Creatinine Clr Calc Pharmacy 109.1 ml/min; Est GFR (African American) 117.2; Est GFR (Non-African American) 101.1; Magnesium 1.5 mg/dl (1.8-2.4); Potassium 4.6 mmol/L (3.5-5.1)
[2019-12-29] MEDS: LACTATED RINGER'S 1,000 ML IV SCH (08:50)
[2019-12-29] MEDS: DOXYCYCLINE HYCLATE 100 MG in DEXTROSE 5% 100 ML IV SCH (08:50)
[2019-12-29] MEDS: LEVOTHYROXINE SODIUM 62.5 MCG in SYRINGE 0 ML IV SCH (08:50)
[2019-12-29] MEDS ORDERED: INSULIN GLARGINE SOLOSTAR 100 UNITS/ML 3 ML PEN SC SCH ×2 (09:00→21:00)
--- NOTE | 2019-12-29 10:11 | Infectious Disease Progress Nt ---
Date of Service December 29, 2019 Assessment & Plan (1) RLL pneumonia: suspect CAP, continue current abx. follow culture results. obtain sputum culture if able. Can convert doxy to po. will need 7 days total. Admission and Anticipated Discharge Date Admission Date: December 27, 2019 Anticipated date of discharge: 01/01/20 Subjective afebrile overnight, remains on ctx and doxy for suspected CAP, tolerating well. CSF culture negative and final. blood cultures negative to date. wbc 6. creat 0.7, COVID testing pending. Results & Data ([facility]) Vital Signs (Past 12 Hours) Vital Signs Temp Pulse Pulse Pulse Resp BP Pulse Ox 12/29/19 09:00 90 12/29/19 07:30 36.6 C 94 H 18 108/72 99 12/29/19 04:05 37.0 C 89 20 111/72 98 12/29/19 00:00 36.8 C 96 H 18 103/73 98 Laboratory Results Microbiology 12/27/19 07:47 Blood Aerobic Blood Culture - Preliminary No growth in Aerobic bottle after 48 hours. 12/27/19 07:47 Blood Anaerobic Blood Culture - Preliminary No growth in Anaerobic bottle after 48 hours. 12/27/19 06:45 Blood Aerobic Blood Culture - Preliminary No growth in Aerobic bottle after 48 hours. 12/27/19 06:45 Blood Anaerobic Blood Culture - Final 12/27/19 08:00 Cerebral Spinal Fluid Gram Stain - Final 12/27/19 08:00 Cerebral Spinal Fluid CSF Culture - Final No growth PG Care Time/CCT Total # of Minutes Spent Total Time Spent with Patient: Total time spent is greater than 50% in coordination of care (as documented) at patient's floor/unit and/or counseling patient: Coding Level of Care Code 41517 Subseq Hosp Care Lvl 1 Diagnoses RLL pneumonia J18.9 Pneumonia type: due to unspecified organism (1) RLL pneumonia Pneumonia type: due to unspecified organism Qualified Code(s): J18.9 - Pneumonia, unspecified organism
[2019-12-29] MEDS ORDERED: MAGNESIUM SULFATE 50% 4 GM in SODIUM CHLORIDE 0.9% 500 ML IV SCH (12:00)
--- NOTE | 2019-12-29 13:00 | Hospitalist Progress Note ---
Date of Service December 29, 2019 Assessment & Plan (1) RLL pneumonia: Rocephin/Doxy, transition to PO in am (patient reports difficulty taking pills 2/2 mental block), Blood cultures are negative to date. Likely dc in am. (2) Acute metabolic encephalopathy: resolved. (3) Metabolic acidosis: Slightly lower bicarbonate possibly related to recent JOEL in sepsis and/or the use of NSS for resuscitation overnight. He was switched to LR, but now is eating and tolerating PO reliably. Possible starvation ketosis component to low bicarb. Normal pH on am bloodwork. Would expect to normalize in am now that he is eating. (4) Acute hyponatremia: Likely 2/2 dehydration with poor PO intake recently. Resolving. BMP in am. (5) Hypomagnesemia: Replace and repeat in am. (6) Hypothyroidism: cont Synthroid replacement per home regimen. (7) DMII (diabetes mellitus, type 2): A1C is 6.5, cont basal bolus insulin while hospitalized with correction factor and carb coverage. (8) Hyperlipidemia: Cont lipitor per home regimen as this has been shown to have some positive effects in COVID-19 infection from an anti-inflammatory/immune standpoint and this has not yet been ruled out. (9) Sepsis: Resuscitated. Cont treatment of pneumonia. (10) DVT prophylaxis: Lovenox Full Code Dispo-transfer to Med/Surg with likely DC to home in am. Krista Fields DO [facility] Hospitalist Admission and Anticipated Discharge Date Admission Date: December 27, 2019 Anticipated date of discharge: 12/30/19 Subjective oriented and mentating at baseline today ambulating independently and tolerating PO cough present but not excessive pt doesn't remember the past two days. afebrile Review of Systems Review of Systems: All systems reviewed & are unremarkable except as noted in Subjective Physical Exam Physical Exam: CONSTITUTIONAL: WNWD, vitals as above, generally well- appearing EYES: normal conjunctivae, no scleral icterus ENT: external ear and nose normal, oropharynx clear, mucous membranes dry. RESPIRATORY: clear to auscultation bilaterally, no crackles, rales or wheezes, normal respiratory effort CARDIOVASCULAR: regular rate and rhythm, S1 and 2 heard without murmurs, gallops or rubs, no JVD, no peripheral edema CHEST: inspection of chest was normal GASTROINTESTINAL: soft, nontender, nondistended, no guarding MUSCULOSKELETAL: strength 5/5 throughout, head is normocephalic and atraumatic, neck supple, ambulating independently SKIN: warm and dry NEUROLOGIC: no facial palsy, no dysarthria. CN 2-12 grossly intact, normal speech, no tremor PSYCHIATRIC: alert cooperative and oriented x 3 Results & Data Results & Data ([facility]) Vital Signs (Past 12 Hours) Vital Signs Temp Pulse Pulse Pulse Resp BP Pulse Ox 12/29/19 11:03 36.8 C 88 18 123/69 98 12/29/19 09:00 90 12/29/19 07:30 36.6 C 94 H 18 108/72 99 12/29/19 04:05 37.0 C 89 20 111/72 98 Laboratory Results Short CBC 12/29/19 Range/Units 05:41 WBC 6.75 (4.8-10.8) K/uL Hgb 12.9 L (14.0-18.0) g/dL Hct 36.6 L (42-52) % Plt Count 182 (130-400) K/uL BMP 12/29/19 05:41 Sodium 130 L Potassium 4.6 Chloride 102 Carbon Dioxide 18 L BUN 12 Creatinine 0.79 Glucose 83 Calcium 9.5 Cardiac Enzymes 12/29/19 Range/Units 05:41 Total Creatine Kinase 114 (39-308) U/L Medications Administered Current Inpatient Medications Acetaminophen (Tylenol) 650 mg PO Q4H PRN PRN Reason: Pain or Fever Stop: 01/26/20 12:18 Dextrose (Dextrose 50%) 25 - 50 ml IV UD PRN; Protocol PRN Reason: Hypoglycemia Protocol Stop: 01/26/20 12:18 Enoxaparin Sodium (Lovenox) 40 mg SQ HS [facility] Stop: 01/26/20 20:59 Last Admin: 12/28/19 21:28 Dose: 40 mg Documented by: Glucagon (Glucagen) 1 mg SQ UD PRN; Protocol PRN Reason: Hypoglycemia Protocol Stop: 01/26/20 12:18 Glucose (Dex4 Glucose) 4 - 8 tabs PO UD PRN; Protocol PRN Reason: Hypoglycemia Protocol Stop: 01/26/20 12:18 Glucose (Glucose 40%) 15 - 30 gm PO UD PRN; Protocol PRN Reason: Hypoglycemia Protocol Stop: 01/26/20 12:18 Ceftriaxone Sodium 2,000 mg/ (Dextrose) 70 mls @ 100 mls/hr IV DAILY@1600 [facility]; Protocol Stop: 01/03/20 15:59 Last Infusion: 12/29/19 17:37 Dose: Infused Documented by: Doxycycline Hyclate 100 mg/ (Dextrose) 110 mls @ 50 mls/hr IV DAILY [facility]; Protocol Stop: 01/03/20 08:59 Last Infusion: 12/29/19 11:17 Dose: Infused Documented by: Insulin Aspart (Novolog Flexpen) 0 units SC [facility] Stop: 01/28/20 16:29 Last Admin: 12/29/19 17:02 Dose: Not Given Documented by: Insulin Glargine (Lantus Solostar Pen) 10 units SC [facility] Stop: 01/28/20 20:59 Levothy[facility]ine [facility] Stop: 01/29/20 06:29 Miscellaneous (Carbohydrates For Hypoglycemia) 15 - 30 gm PO UD PRN PRN Reason: Hypoglycemia Protocol Stop: 01/26/20 12:18 Ondansetron HCl (Zofran) 4 mg IV Q6H PRN PRN Reason: Nausea Stop: 01/26/20 12:18 Polyethylene Glycol (Miralax Powder Packet) 17 gm PO DAILY PRN PRN Reason: Constipation Stop: 01/26/20 12:18 Simvastatin (Zocor) 20 mg PO [facility] Stop: 01/26/20 20:59 Last Admin: 12/28/19 21:27 Dose: Not Given Documented by: (1) RLL pneumonia Pneumonia type: due to unspecified organism Qualified Code(s): J18.9 - Pneumonia, unspecified organism
[2019-12-29] MEDS: cefTRIAXone SODIUM 2,000 MG in DEXTROSE 5% 50 ML IV SCH (16:42)
[2019-12-29] MEDS: AMOXICILLIN 500 MG CAP PO SCH (22:02)
[2019-12-29] MEDS: DOXYCYCLINE HYCLATE 100 MG CAP PO SCH (22:03)
[2019-12-29] MEDS: ENOXAPARIN INJ 40 MG/0.4 ML SYR SQ SCH ×2 (22:23→23:33)
[2019-12-30] MEDS: SIMVASTATIN 20 MG TAB PO SCH (00:13)
[2019-12-30] MEDS: AMOXICILLIN 500 MG CAP PO SCH ×2 (05:37→12:15)
[2019-12-30 06:17] LABS: Hematocrit (blood only) 38.6 % (42-52); Hemoglobin 13.3 g/dL (14.0-18.0); Mean Corpuscular Hemoglobin 28.9 pg (25-34); Mean Corpuscular Hgb Conc 34.5 g/dL (32-36); Mean Corpuscular Volume 83.7 fL (80-100); Mean Platelet Volume 10.2 fL (7.4-10.4); Platelet Count 226 K/uL (130-400); RDW Standard Deviation 39.5 fL (36.4-46.3); Red Blood Count 4.61 M/uL (4.7-6.1); White Blood Count 5.91 K/uL (4.8-10.8)
[2019-12-30] MEDS ORDERED: LEVOTHYROXINE SODIUM 125 MCG TABLET PO SCH (06:30)
[2019-12-30 06:49] LABS: BUN Creatinine Ratio 15.1 (10-20); Calcium 9.7 mg/dl (8.5-10.1); Creatinine Clr Calc Pharmacy 126.7 ml/min; Est GFR (African American) 124.6; Est GFR (Non-African American) 107.5; Magnesium 1.6 mg/dl (1.8-2.4); Potassium 4.4 mmol/L (3.5-5.1)
[2019-12-30] MEDS: DOXYCYCLINE HYCLATE 100 MG CAP PO SCH (09:01)
[2019-12-30] MEDS: INSULIN ASPART 100 UNITS/ML 3 ML PEN SC SCH ×2 (09:14→12:29)
--- NOTE | 2019-12-30 09:33 | Infectious Disease Progress Nt ---
Date of Service December 30, 2019 Assessment & Plan (1) RLL pneumonia: suspect CAP, will need 7 days total. tolerating abx, ok for d/c from ID standpoint when otherwise stable. Admission and Anticipated Discharge Date Admission Date: December 27, 2019 Anticipated date of discharge: 12/30/19 Subjective pt transitioned to po abx, tolerating well. afebrile. blood cultures remain negative, csf culture negative. wbc 5, creat 0.6. for d/c. Results & Data ([facility]) Laboratory Results Microbiology 12/27/19 07:47 Blood Aerobic Blood Culture - Preliminary No growth in Aerobic bottle after 48 hours. 12/27/19 07:47 Blood Anaerobic Blood Culture - Preliminary No growth in Anaerobic bottle after 48 hours. 12/27/19 06:45 Blood Aerobic Blood Culture - Preliminary No growth in Aerobic bottle after 48 hours. 12/27/19 06:45 Blood Anaerobic Blood Culture - Final 12/27/19 08:00 Cerebral Spinal Fluid Gram Stain - Final 12/27/19 08:00 Cerebral Spinal Fluid CSF Culture - Final No growth PG Care Time/CCT Total # of Minutes Spent Total Time Spent with Patient: Total time spent is greater than 50% in coordination of care (as documented) at patient's floor/unit and/or counseling patient: Coding Level of Care Code 64662 Subseq Hosp Care Lvl 1 Diagnoses RLL pneumonia J18.9 Pneumonia type: due to unspecified organism (1) RLL pneumonia Pneumonia type: due to unspecified organism Qualified Code(s): J18.9 - Pneumonia, unspecified organism
--- NOTE | 2019-12-30 19:10 | Hospitalist Progress Note ---
Date of Service December 30, 2019 Assessment & Plan (1) Severe sepsis: Met criteria for severe sepsis per current CMS guidelines (fever, tachycardic, leukocytosis with encephalopathy + elevated lactate). Blood cultures obtained in ED. Received broad spectrum antibiotic therapy with cefepime and doxycycline. Hemodynamically stable. Serum lactate 3.3 --> 1.9. Chest x-ray showed RLL infiltrate. LP showed slightly elevated protein, but 0 WBC's, negative BioFire CSF PCR panel, negative CSF culture. (2) RLL pneumonia: Presented with severe sepsis. Chest x-ray showed RLL infiltrate. Influenza A/B PCR + BioFire resp panel negative. Initially received cefepime and transitioned to ceftriaxone. Received doxycycline for atypical coverage. Defervesced and clinical status improved. Discharged on oral therapy with amoxicillin + doxy. Follow-up chest x-ray recommended in 4-6 weeks to ensure resolution of infiltrate. SARS-CoV-2 results pending at time of discharge. Patient advised to follow COVID-19 precautions. (3) Acute metabolic encephalopathy: Very confused at time of admission. Head CT negative. Probable encephalopathy secondary to sepsis. Mental status back to baseline by discharge. (4) Diabetes mellitus type 2, controlled: Hgb A1c 6.5. Received insulin coverage as necessary. FBS day of discharge 108. Discharged on usual regimen. (5) Hypothyroidism: Continue levothyroxine. (6) Hypomagnesemia: Serum Mg as low as 1.5. Discharged on Mg oxide 400 mg BID. Follow. (7) Hyponatremia: Serum Na 125 at time of admission. Possible SIADH secondary to pneumonia. However, Na was 132 11/21/17. Liberalize sodium in diet. Avoid excessive free water. Follow. (8) DVT prophylaxis: Received SQ enoxaparin. (9) Discharge planning issues: Discharged to home. Family Medicine follow-up with Dr. Dobson. Admission and Anticipated Discharge Date Admission Date: December 27, 2019 Anticipated date of discharge: 12/30/19 Subjective Feels much better. Afebrile. Confusion resolved. Very mild intermittent headache. Mild cough. No CP or SOB. No nausea, vomiting, diarrhea. Would like to go home. Physical Exam Constitutional: no acute distress Respiratory: no respiratory distress Auscultation: lungs clear to auscultation bilaterally Cardiovascular: Rate/Rhythm: regular rate and regular rhythm Vessels: no JVD Extremities: no calf tenderness and no edema Gastrointestinal (Abdomen): normal bowel sounds, soft, nontender, no hepatosplenomegaly Skin: no rashes, warm and dry Psychiatric: Orientation: alert and oriented x 3 Results & Data Results & Data ([facility]) Vital Signs (Past 12 Hours) Vital Signs Temp Pulse Pulse Resp BP Pulse Ox 12/30/19 16:38 36.8 C 89 88 18 123/69 98 Laboratory Results 12/30/19 05:27 12/30/19 05:27 (1) RLL pneumonia Pneumonia type: due to unspecified organism Qualified Code(s): J18.9 - Pneumonia, unspecified organism
--- NOTE | 2019-12-31 21:36 | Discharge Summary ---
Date of Service Date of Admission: 12/27/19 Date of Discharge: 12/30/19 Admission HPI Per Admitting Provider 54 yo M with DMII, HLP and hypothyroidism presents to the ER via EMS after family was concerned for confusion. Per his and son who live with him, he fell ill Thurs arminda (4 days ago) with generalized malaise and fever. On Fri he developed a mild, nonproductive cough and a low grade fever 99.5F. Family encouraged him to go to seek medical attention but he refused. He continued to be ill with fever and respiratory symptoms and fatigue on Sat and was found to be confused this morning after crawling into bed with his son. 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 He has no known COVID exposure, but has been sick with respiratory symptoms and fever since 12/03. He reports being given an empiric course of tamiflu without resolution of symptoms and was then placed on antibiotics for 10 days. A few days after finishing the antibiotics he is only starting to have a resolution of his cough and other symptoms. He reports trying to isolate from his mom and dad because of this and because his mother has cancer and is currently undergoing chemotherapy. The patient reportedly has been working at home for the last month, complying with quarantine instructions, and has only left the house for trips to the grocery store. There have been no known visitors to the house in the last month. The of the patient has not been ill with symptoms. Workup in the ER included a head CT which was normal, BMP reveals ?dehydration with hyponatremia and JOEL (confirmed with pt was not eating well for the past 2-3 days), CBC with mild leukocytosis, CT head negative, respiratory washings for flu and Biofire respiratory panel were negative. Blood and sputum cultures pending. CXR reveals a RLL infiltrate consistent with pneumonia. An LP reveals aseptic meningitis. The patient is encephalopathic and febrile. He is ambulatory but unsteady on his feet. He does not appears to have any gross focal neurologic deficits but is not oriented to person, place or time. He is able to answer questions such as are you in pain?, and denies this. He is able to follow instructions. He was given 2L of NSS and 1L of LR to treat his sepsis, and was administered Cefepime and doxycycline. I discussed the case with his son and who are aware of the plan and all questions answered. Airborne precautions were observed. Principal Diagnosis severe sepsis due to right lower lobe pneumonia OTHER ACUTE / NEW DIAGNOSES: encephalopathy hyponatremia hypomagnesemia Discharge Data Allergies Allergy/AdvReac Type Severity Reaction Status Date / Time NSAIDS (Non-Steroidal Allergy Severe Unverified 12/27/19 07:51 Anti-Inflamma states "Almost like and asthmatic attack" Consultations 12/27/19 09:38 ED Decision to Admit Stat 12/27/19 16:49 Consult Infectious Diseases Routine Ordered Studies 12/27/19 06:56 CT head/brain wo con Stat Hospital Course (1) Severe sepsis: Met criteria for severe sepsis per current CMS guidelines (fever, tachycardic, leukocytosis with encephalopathy + elevated lactate). Blood cultures obtained in ED. Received broad spectrum antibiotic therapy with cefepime and doxycycline. Hemodynamically stable. Serum lactate 3.3 --> 1.9. Chest x-ray showed RLL infiltrate. LP showed slightly elevated protein, but 0 WBC's, negative BioFire CSF PCR panel, negative CSF culture. (2) RLL pneumonia: Presented with severe sepsis. Chest x-ray showed RLL infiltrate. Influenza A/B PCR + BioFire resp panel negative. Initially received cefepime and transitioned to ceftriaxone. Received doxycycline for atypical coverage. Defervesced and clinical status improved. Discharged on oral therapy with amoxicillin + doxy. Follow-up chest x-ray recommended in 4-6 weeks to ensure resolution of infiltrate. SARS-CoV-2 results pending at time of discharge. Patient advised to follow COVID-19 precautions. (3) Acute metabolic encephalopathy: Very confused at time of admission. Head CT negative. Probable encephalopathy secondary to sepsis. Mental status back to baseline by discharge. (4) Diabetes mellitus type 2, controlled: Hgb A1c 6.5. Received insulin coverage as necessary. FBS day of discharge 108. Discharged on usual regimen. (5) Hypothyroidism: Continue levothyroxine. (6) Hypomagnesemia: Serum Mg as low as 1.5. Discharged on Mg oxide 400 mg BID. Follow. (7) Hyponatremia: Serum Na 125 at time of admission. Possible SIADH secondary to pneumonia. However, Na was 132 11/21/17. Liberalize sodium in diet. Avoid excessive free water. Follow. (8) DVT prophylaxis: Received SQ enoxaparin. (9) Discharge planning issues: Discharged to home. Family Medicine follow-up with Dr. Dobson. Total Time Total Time Spent Total Time Spent (In Minutes): 40 Discharge Plan Discharge Items Patient Disposition: Home - Self-Care Reason For Visit: confusion Discharge Diagnosis: pneumonia Activity: Resume your previous activity Non-emergency contact: Primary Care Provider and Hospitalist Call non-emergency contact if: you have any medication questions, your symptoms worsen and your temperature is above 101 Follow-up/Referrals: Marlon Dobson MD [Primary Care Provider] - (01/04/2020 11:20 AM Marlon Dobson MD ) Diet: Heart Healthy Addtl Attending Provider Instructions: MEDICATION CHANGES: amoxicillin 500 mg 3 times a day until gone doxycycline 100 mg twice a day until gone magnesium oxide 400 mg twice a day may interact with doxycycline Do not start taking until done with doxycycline. SUMMARY OF TEST RESULTS: Chest x-ray showed pneumonia. Please ask Dr. Dobson to check a repeat x-ray in 4-[address] scan of head was normal. Following tests were normal: blood cultures spinal fluid cultures spinal fluid tests for bacteria and viruses that can cause meningitis testing for influenza or other common viruses that cause pneumonia Lyme screen MRSA screen Sodium level in your blood was a little low. You should liberalize salt in your diet a little. Avoid drinking excessive amounts of fluids (usually no more than 2 quarts / day). Have Dr. Dobson recheck your lab work occasionally. Magnesium level in your blood was a little low. Take magnesium oxide twice a day. Have Dr. Dobson recheck your lab work occasionally. PENDING TEST RESULTS: novel coronavirus (COVID-19) You will be contacted with results. RECOMMENDATIONS FOR FOLLOW-UP: Home Isolation COVID-19 Instructions (It is necessary to assume that you may have COVID-19 until test results are available). The following information about Home Isolation is from the CDC Website: https://www.cdc.gov/coronavirus/2019-ncov/hcp/jwnvfodz-quxkayj-drnnww.html Stay home except to get medical care People who are mildly ill with COVID-19 are able to isolate at home during their illness. You should restrict activities outside your home, except for getting medical care. Do not go to work, school, or public areas. Avoid using public transportation, ride-sharing, or taxis. Separate yourself from other people and animals in your home People: As much as possible, you should stay in a specific room and away from other people in your home. Also, you should use a separate bathroom, if available. Animals: You should restrict contact with pets and other animals while you are sick with COVID-19, just like you would around other people. Although there have not been reports of pets or other animals becoming sick with COVID-19, it is still recommended that people sick with COVID-19 limit contact with animals until more information is known about the virus. When possible, have another member of your household care for your animals while you are sick. If you are sick with COVID-19, avoid contact with your pet, including petting, snuggling, being kissed or licked, and sharing food. If you must care for your pet or be around animals while you are sick, wash your hands before and after you interact with pets and wear a face mask. Call ahead before visiting your doctor If you have a medical appointment, call the healthcare provider and tell them that you have or may have COVID-19. This will help the healthcare providers office take steps to keep other people from getting infected or exposed. Wear a face mask You should wear a face mask when you are around other people (e.g., sharing a room or vehicle) or pets and before you enter a healthcare providers office. If you are not able to wear a face mask (for example, because it causes trouble breathing), then people who live with you should not stay in the same room with you, or they should wear a face mask if they enter your room. Cover your coughs and sneezes Cover your mouth and nose with a tissue when you cough or sneeze. Throw used tissues in a lined trash can. Immediately wash your hands with soap and water for at least 20 seconds or, if soap and water are not available, clean your hands with an alcohol-based hand server programmer that contains at least 60% alcohol. Clean your hands often Wash your hands often with soap and water for at least 20 seconds, especially after blowing your nose, coughing, or sneezing; going to the bathroom; and before eating or preparing food. If soap and water are not readily available, use an alcohol-based hand server programmer with at least 60% alcohol, covering all surfaces of your hands and rubbing them together until they feel dry. Soap and water are the best option if hands are visibly dirty. Avoid touching your eyes, nose, and mouth with unwashed hands. Avoid sharing personal household items You should not share dishes, drinking glasses, cups, eating utensils, towels, or bedding with other people or pets in your home. After using these items, they should be washed thoroughly with soap and water. Clean all high-touch surfaces everyday High touch surfaces include counters, tabletops, doorknobs, bathroom fixtures, toilets, phones, keyboards, tablets, and bedside tables. Also, clean any surfaces that may have blood, stool, or body fluids on them. Use a household cleaning spray or wipe, according to the label instructions. Labels contain instructions for safe and effective use of the cleaning product including precautions you should take when applying the product, such as wearing gloves and making sure you have good ventilation during use of the product. Monitor your symptoms Seek prompt medical attention if your illness is worsening (e.g., difficulty breathing).Beforeseeking care, call your healthcare provider and tell them that you have, or are being evaluated for, COVID-19. Put on a face mask before you enter the facility. These steps will help the healthcare providers office to keep other people in the office or waiting room from getting infected or exposed. Ask your healthcare provider to call the local or state health department. Persons who are placed under active monitoring or facilitated self- monitoring should follow instructions provided by their local health department or occupational health professionals, as appropriate. When working with your local health department check their available hours. If you have a medical emergency and need to call 911, notify the dispatch pers onnel that you have, or are being evaluated for COVID-19. If possible, put on a face mask before emergency medical services arrive. Discontinuing home isolation Patients with confirmed COVID-19 should remain under home isolation precautions until the risk of secondary transmission to others is thought to be low. The decision to discontinue home isolation precautions should be made on a [id number] basis, in consultation with healthcare providers and state and local health departments. OTHER INSTRUCTIONS: Seek medical attention if you have: * temperature above 101 * chest pain or trouble breathing * abdominal pain, nausea, vomiting * diarrhea, dark stools or bloody stools * any unanswered questions or concerns Call 911 if symptoms are severe. Please take good care of yourself. Call if you have any questions or problems. You can reach a [facility] hospitalist on duty at [facility] 24 hours a day by calling [phone]. My cell # is [phone]. Pending Studies at Discharge: Yes Studies:: novel coronavirus (COVID-19) test Stand-Alone Forms: My [facility], Smoking Cessation Medications and DC Order Prescriptions: New amoxicillin 500 mg Capsule 500 mg PO Q8H Qty: 10 RF: 0 doxycycline hyclate 100 mg Capsule 100 mg PO BID Qty: 7 RF: 0 magnesium oxide 400 mg magnesium tablet 400 mg PO BID Qty: 60 RF: 5 Continued aspirin 81 mg Tablet,Delayed Release (Dr/Ec) 81 mg PO DAILY Qty: 0 RF: 0 glyburide 1.25 mg Tablet 1.25 mg PO QAM Qty: 0 RF: 0 levothyroxine 125 mcg Tablet 125 mcg PO QAM Qty: 0 RF: 0 simvastatin [Zocor] 20 mg Tablet 20 mg PO HS Qty: 0 RF: 0 metformin 1,000 mg Tablet 1,000 mg PO BIDM Qty: 0 RF: 0 Discharge Orders: Discharge Order (Routine); Ordered 12/30/19 Ordered By: Vito Muñoz Admission Data Admit Date/Time: 12/27/19 10:21 Attending Provider: Vito Muñoz Admit Provider: Krista Fields Primary Care Provider: Marlon Dobson Other Providers: Krista Fields ; Ara Garcias Other Interventions: Discharge Summary Assessment (RN) Last Done: 12/30/19 16:38 DC Date/Time DO NOT enter until pt leaves facility: 12/30/19 17:25
--- NOTE | 2020-01-01 07:36 | Coding Query ---
CODING QUERY To promote full compliance with coding requirements relating to patient care, provider participation is requested in all cases of actuarial manager uncertainty. Please assist us with the question(s) below: Please clarify the meaning of JOEL. This is documented on Progress Notes 12/28/19 & 12/29/19. JOEL is not a valid abbreviation. Thank you. ( x ) Acute Kidney Injury ( ) Acute Kidney Insufficiency ( ) Other (Specify): Principal Diagnosis: "that condition established after study, to be chiefly responsible for occasioning the admission of the patient to the hospital for care." Co-Existing Principal Diagnosis: "when two or more diagnoses equally meet the criteria for principal diagnosis as determined by the circumstances of admission, diagnostic work up, and/or therapy provided, and the Alphabetic Index, Tabular List, or another coding guideline does not provide sequencing direction, any one of the diagnoses may be sequenced first." "When the physician has documented what appears to be a current diagnosis in the body of the record, but has not included the diagnosis in the final diagnostic statement, the physician should be asked whether the diagnosis should be added." (Source [facility]oding [facility] 2 QTR90. p3-4) JUNIOR
--- NOTE | 2020-01-01 07:37 | Coding Query ---
LABORATORY To promote full compliance with coding requirements relating to patient care, physician participation is requested in all cases of hob grinder uncertainty. Please assist us with the question(s) below: Please review the Laboratory report for COVID-19 testing and please document any relevant diagnosis(es) below: Diagnosis(es): SARS-CoV-2 negative. Thank you Jackie PACHECO
[2020-01-01 11:00] LABS: COVID-19 Patient Symptomatic? YES; PAN-SARS Coronavirus RNA NEGATIVE (NEGATIVE); SARS CoV2 RNA (COVID-19) NEGATIVE (NEGATIVE); SARS Coronavirus RNA Source NASOPHARYNGEAL
== END 2019-12-30 17:25 | disposition home or self-care (01) | DRG 871 ==
LOC: ED 06:32 → SUATTDRO 10:21 → 2S 10:21 → 2W 12-29 14:46

== ENCOUNTER 2022-01-23 20:05 | Inpatient (IN) ==
[2022-01-23 21:00] LABS: Basophils # (auto) 0.07 K/uL (0-0.2); Basophils % (auto) 0.7 %; Eosinophils # (auto) 0.61 K/uL (0-0.5); Eosinophils % (auto) 6.3 %; Hematocrit (blood only) 44.2 % (42-52); Hemoglobin 16.2 g/dL (14.0-18.0); Immature Granulocytes # (auto) 0.02 K/uL (0.00-0.02); Immature Granulocytes % (auto) 0.2 %; Lymphocytes # (auto) 4.08 K/uL (1.2-3.4); Lymphocytes % (auto) 42.4 %; Mean Corpuscular Hemoglobin 29.8 pg (25-34); Mean Corpuscular Hgb Conc 36.7 g/dL (32-36); Mean Corpuscular Volume 81.4 fL (80-100); Mean Platelet Volume 10.1 fL (7.4-10.4); Monocytes # (auto) 0.96 K/uL (0.11-0.59); Neutrophils # (auto) 3.88 K/uL (1.4-6.5); Neutrophils % (auto) 40.4 %; Platelet Count 222 K/uL (130-400); RDW Coefficient of Variation 12.4 % (11.5-14.5); RDW Standard Deviation 36.7 fL (36.4-46.3); Red Blood Count 5.43 M/uL (4.7-6.1); White Blood Count 9.62 K/uL (4.8-10.8)
[2022-01-23 21:44] LABS: Albumin Globulin Ratio 1.3 (0.9-2); Albumin Level 4.4 gm/dl (3.4-5.0); Bilirubin,Total 1.5 mg/dl (0.2-1.0); Calcium 9.6 mg/dl (8.5-10.1); Creatinine Clr Calc Pharmacy 57.9 ml/min; Est GFR (Non-African American) 50.9 ml/min; Globulin 3.4 gm/dl (2.5-4.0); Potassium 4.8 mmol/L (3.5-5.1); Total Protein 7.8 gm/dl (6.0-8.3)
[2022-01-23] MEDS ORDERED: SODIUM CHLORIDE 0.9% 1000ML 1,000 ML IV ONE (22:09)
--- NOTE | 2022-01-23 22:11 | Emergency Department Note ---
Impression & Plan Hyponatremia, Hyperglycemia ED Provider Note NAME: MARIZA LEWIS AGE: 56 SEX: M : 1965 ARRIVES VIA: Walk-In INFORMANT: Patient ED PROVIDER(S): Adonis Jackson DO CHIEF COMPLAINT: weak HPI: Patient is a 56-year-old male who presents the ER for nausea and vomiting. He notes he is felt very weak and tired which has been going on for the past 2 weeks. He is also having some diarrhea. He had lab work done by his PCP and was referred in. He notes he has not been drinking normal amount of fluids that he normally does. Denies any headache or change in vision. No chest pain or shortness of breath. No dysuria urgency or frequency. ROS: See above HPI for pertinent positives & negatives. A total of 10 systems reviewed and were otherwise negative. PAST MEDICAL HISTORY:See Below PAST SURGICAL HISTORY:See Below FAMILY HISTORY:See Below SOCIAL HISTORY:See Below HOME MEDICATIONS:See Below ALLERGIES:See Below VITALS:See Below PHYSICAL EXAMINATION: GENERAL: Sitting up in bed, alert, well appearing, well nourished, no distress, non-toxic EYE EXAM: normal conjunctiva. OROPHARYNX: no exudate, no erythema, lips, buccal mucosa, and tongue normal and mucous membranes are moist NECK: supple, no nuchal rigidity, no adenopathy, non-tender LUNGS: Clear to auscultation. Normal chest wall mechanics HEART: no murmurs, S1 normal and S2 normal ABDOMEN: abdomen soft, non-tender, normo-active bowel sounds, no masses, no rebound or guarding. UPPER EXTREMITIES: upper extremities are grossly normal. LOWER EXTREMITIES: No pitting edema. NEURO EXAM: Normal sensorium, cranial nerves II-XII grossly intact, normal speech, no gross weakness of arms, no gross weakness of legs. MEDICAL DECISION MAKING: Patient is a 56-year-old male who presents ER for the above-stated complaint. He was referred in by PCP. IV was established blood work was obtained. Labs show no significant leukocytosis or anemia. BMP with a mild hyponatremia at 117. Creatinine 1.5. LFTs bilirubin remarkable for bili of 1.5. COVID- negative. Patient was given IV fluids. Updated bedside discussed the hospitalist for further evaluation of his hyponatremia. CT abdomen pelvis was unremarkable Triage Nursing notes reviewed. Limited review of prior medical records performed Vital Signs: reviewed and remarkable for tachy Differential diagnosis: Differential diagnoses includes but is not limited to gastritis, peptic ulcer disease, GERD, gallbladder disease, pancreatitis, small bowel obstruction, acute coronary syndrome, pericarditis, ischemic bowel, irritable bowel disease, irritable bowel syndrome, appendicitis, diverticulitis, malignancy, hernia, urinary tract infection, torsion, perforation, trauma, infectious. ER treatment provided: See below Diagnostics interpreted by me: ECG: none Cardiac Monitoring: An order was placed for continuous cardiac monitoring. The monitor shows a rate of 90 with sinius rhythm. Laboratory studies: As stated above and show below. Imaging studies: CT abdomen pelvis is unremarkable Consultation(s): Discussed with hospitalist for further evaluation Procedures: none Critical Care: None Past Med/Surg History Medical History Diabetes mellitus type 2, controlled Hyperlipidemia Hyponatremia Hypothyroidism Surgical History No pertinent past surgical history Family History Other No pertinent family history Social History Smoking Status: Never smoker Preferred Language: Vietnamese Communication Ability: Impaired marital status: Current Living Situation: Spouse Feels Safe at Home: Yes Assistive Devices: Glasses Allergies Allergies Allergy/AdvReac Type Severity Reaction Status Date / Time NSAIDS (Non-Steroidal Allergy Severe Unverified 01/23/22 22:50 Anti-Inflamma states "Almost like and asthmatic attack" Home Meds Home Medications Medication Instructions Recorded Confirmed aspirin 81 mg tablet,delayed 81 mg PO DAILY #0 11/21/17 01/23/22 release glyburide 1.25 mg tablet 1.25 mg PO QAM #0 11/21/17 01/23/22 levothyroxine 125 mcg tablet 125 mcg PO QAM #0 11/21/17 01/23/22 metformin 1,000 mg tablet 1,000 mg PO BIDM #0 tab 11/21/17 01/23/22 simvastatin 20 mg tablet (Zocor) 20 mg PO HS #0 tab 11/21/17 01/23/22 Results & Data (ED) Vital Signs Vital Signs - 24 hr 01/23/22 20:18 01/23/22 23:59 Temperature 36.7 C Temperature Source Temporal Artery Scan Pulse Rate 113 H Pulse Rate [Finger] 87 Respiratory Rate 18 18 Respiratory Effort / Characteristics Non-Labored Spontaneous Respiratory Depth Normal Normal Respiratory Pattern Regular Blood Pressure 123/67 Blood Pressure [Right Arm] 105/66 Blood Pressure Mean 85 Blood Pressure Mean [Right Arm] 79 Blood Pressure Position Sitting Pulse Oximetry 99 98 Oxygen Delivery Method Room Air Room Air Sepsis Recent Fever Within 48 Hours No Sepsis New/Unexplained Change in Mental Status No Sepsis Action Taken by Nursing No Action Required Laboratory Data Result diagrams: 01/23/22 20:28 01/23/22 20:28 Lab Results 01/23/22 01/23/22 01/23/22 Range/Units 20:28 20: 20: WBC 9.62 (4.8-10.8) K/uL RBC 5.43 (4.7-6.1) M/uL Hgb 16.2 (14.0-18.0) g/dL Hct 44.2 (42-52) % MCV 81.4 (80-100) fL MCH 29.8 (25-34) pg MCHC 36.7 H (32-36) g/dL RDW Std Deviation 36.7 (36.4-46.3) fL RDW Coeff of Tra 12.4 (11.5-14.5) % Plt Count 222 (130-400) K/uL MPV 10.1 (7.4-10.4) fL Immature Gran % (Auto) 0.2 % Neut % (Auto) 40.4 % Lymph % (Auto) 42.4 % [place] % (Auto) 10.0 % Eos % (Auto) 6.3 % Baso % (Auto) 0.7 % Neut # (Auto) 3.88 (1.4-6.5) K/uL Lymph # (Auto) 4.08 H (1.2-3.4) K/uL [place] # (Auto) 0.96 H (0.11-0.59) K/uL Eos # (Auto) 0.61 H (0-0.5) K/uL Baso # (Auto) 0.07 (0-0.2) K/uL Immature Gran # (Auto) 0.02 (0.00-0.02) K/uL Sodium 117 L* (136-145) mmol/L Potassium 4.8 (3.5-5.1) mmol/L Chloride 86 L (98-107) mmol/L Carbon Dioxide 22 (21-32) mmol/L Anion Gap 9 (3-11) BUN 27 H (6-23) mg/dl Creatinine 1.50 H (0.6-1.4) mg/dl Est Cr Clr Drug Dosing 57.9 ml/min Est GFR ( Amer) 59.0 ml/min Est GFR (Non-Af Amer) 50.9 ml/min BUN/Creatinine Ratio 18.0 (10-20) Glucose 220 H (70-99(Fasting)) mg/dl Osmolality 268 L (280-300) mOsm/kg Calcium 9.6 (8.5-10.1) mg/dl Total Bilirubin 1.5 H (0.2-1.0) mg/dl AST 22 (13-39) U/L ALT 21 (7-52) U/L Alkaline Phosphatase 65 (34-104) U/L Total Protein 7.8 (6.0-8.3) gm/dl Albumin 4.4 (3.4-5.0) gm/dl Globulin 3.4 (2.5-4.0) gm/dl Albumin/Globulin Ratio 1.3 (0.9-2) SARS-CoV-2, RNA, NAAT (NEGATIVE) 01/23/22 Range/Units Unknown WBC (4.8-10.8) K/uL RBC (4.7-6.1) M/uL Hgb (14.0-18.0) g/dL Hct (42-52) % MCV (80-100) fL MCH (25-34) pg MCHC (32-36) g/dL RDW Std Deviation (36.4-46.3) fL RDW Coeff of Tra (11.5-14.5) % Plt Count (130-400) K/uL MPV (7.4-10.4) fL Immature Gran % (Auto) % Neut % (Auto) % Lymph % (Auto) % [place] % (Auto) % Eos % (Auto) % Baso % (Auto) % Neut # (Auto) (1.4-6.5) K/uL Lymph # (Auto) (1.2-3.4) K/uL [place] # (Auto) (0.11-0.59) K/uL Eos # (Auto) (0-0.5) K/uL Baso # (Auto) (0-0.2) K/uL Immature Gran # (Auto) (0.00-0.02) K/uL Sodium (136-145) mmol/L Potassium (3.5-5.1) mmol/L Chloride (98-107) mmol/L Carbon Dioxide (21-32) mmol/L Anion Gap (3-11) BUN (6-23) mg/dl Creatinine (0.6-1.4) mg/dl Est Cr Clr Drug Dosing ml/min Est GFR ( Amer) ml/min Est GFR (Non-Af Amer) ml/min BUN/Creatinine Ratio (10-20) Glucose (70-99(Fasting)) mg/dl Osmolality (280-300) mOsm/kg Calcium (8.5-10.1) mg/dl Total Bilirubin (0.2-1.0) mg/dl AST (13-39) U/L ALT (7-52) U/L Alkaline Phosphatase (34-104) U/L Total Protein (6.0-8.3) gm/dl Albumin (3.4-5.0) gm/dl Globulin (2.5-4.0) gm/dl Albumin/Globulin Ratio (0.9-2) SARS-CoV-2, RNA, NAAT NEGATIVE (NEGATIVE) Administered Medications Discontinued Medications Sodium Chloride (Nss 1000ml) 1,000 mls @ 999 mls/hr IV .Q1H1M ONE Stop: 01/23/22 23:09 Last Infusion: 01/23/22 23:24 Dose: 0 mls/hr Documented by: [id number] Admin: 01/23/22 22:18 Dose: 999 mls/hr Documented by: [id number] Ioversol (Optiray 320 100ml) 93 ml IV ONCE ONE Stop: 01/23/22 22:57 Last Admin: 01/23/22 22:58 Dose: 93 ml Documented by: [id number] Discharge Plan Visit Data Chief Complaint: Abnormal Labs/Diagnostic Testing Stated Complaint: REF FROM , ABNORMAL LABS ED Provider: Adonis Jackson Discharge Problem: Hyponatremia, Hyperglycemia Forms Stand Alone Forms: My [facility] Prescriptions Prescriptions: No Action aspirin 81 mg Tablet,Delayed Release (Dr/Ec) 81 mg PO DAILY Qty: 0 RF: 0 glyburide 1.25 mg Tablet 1.25 mg PO QAM Qty: 0 RF: 0 levothyroxine 125 mcg Tablet 125 mcg PO QAM Qty: 0 RF: 0 simvastatin [Zocor] 20 mg Tablet 20 mg PO HS Qty: 0 RF: 0 metformin 1,000 mg Tablet 1,000 mg PO BIDM Qty: 0 RF: 0 Referrals Referrals: Brodie Calhoun MD [Primary Care Provider] -
[2022-01-23] MEDS ORDERED: OPTIRAY 320 100ml IV ONE (22:56)
--- NOTE | 2022-01-24 00:32 | History & Physical Report ---
Date of Service January 24, 2022 Assessment & Plan (1) Hyponatremia: Plan: Secondary to recent viral illness ARF on CKD secondary to above hypertension, stable DM2 on oral medications, reasonable control as of recent hemoglobin A1c of 7.31 December 2021 hypothyroidism, euthyroid as of today's TSH Medical telemetry Careful correction of sodium Hyponatremia work-up Nephrology consult if without improvement Basal insulin, ISS BG goal 1 10-1 40, carb count coverage DVT prophylaxis. Heparin subcu Full code Text document was generated using [employer] voice recognition software. It may contain grammatical or spelling errors. Kindly contact undersigned for clarification of any documentation item in question. History of Present Illness Chief Complaint: Abnormal blood work Primary Care Provider: Brodie Calhoun MD History obtained from patient and records. Medical history significant for hypertension, DM2 on oral medications, hypothyroidism, CRI (baseline creatinine 1.3-1.4). Last confinement December 2019 for sepsis secondary to pneumonia. Patient has not been feeling well the last 3 weeks. Nausea, generalized weakness, chills, loss of appetite. Chronic cough symptoms. Denies depression. Self-limiting diarrheal illness. Concern for tickborne illness given recent outdoor activity. Patient denies chest pain, SOB, headache symptoms. Patient seen at PCPs office yesterday. Outpatient labs ordered. Serum sodium noted to be 119. Patient directed to ER for evaluation. 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 Allergies Allergy/AdvReac Type Severity Reaction Status Date / Time NSAIDS (Non-Steroidal Allergy Severe Unverified 01/23/22 22:50 Anti-Inflamma states "Almost like and asthmatic attack" Home Medications Medication Instructions Recorded Confirmed Type aspirin 81 mg tablet,delayed 81 mg PO DAILY #0 11/21/17 01/23/22 History release glyburide 1.25 mg tablet 1.25 mg PO QAM #0 11/21/17 01/23/22 History levothyroxine 125 mcg tablet 125 mcg PO QAM #0 11/21/17 01/23/22 History metformin 1,000 mg tablet 1,000 mg PO BIDM #0 tab 11/21/17 01/23/22 History simvastatin 20 mg tablet (Zocor) 20 mg PO HS #0 tab 11/21/17 01/23/22 History Past Med/Surg History Medical History Diabetes mellitus type 2, controlled Hyperlipidemia Hyponatremia Hypothyroidism Surgical History No pertinent past surgical history Family History Other No pertinent family history Social History Smoking Status: Unknown if ever smoked Second Hand Exposure: No; Do You Dip or Chew Tobacco: No; Tobacco Cessation Education Requested by Patient: No Hx Alcohol Use: No Hx Substance Use: No Preferred Language: Danish Communication Ability: Effective Php Engineer Required: No Beliefs That Will Affect Care: None marital status: Current Living Situation: Family Other Information That Helps Us Care for You: No Feels Safe at Home: Yes Safety Concerns: Feels Safe At This Time Assistive Devices: None Review of Systems Review of Systems: As per HPI, all other systems reviewed and negative Physical Exam Physical Exam: GENERAL: Slightly uncomfortable, wane, no respiratory distress SKIN: Normal color, warm HEENT: Bespectacled, [place] palpebral conjunctivae, no ptosis, dry buccal mucosa NECK : Supple, no tenderness CHEST : CTA, no tenderness HEART : RRR, no obvious murmurs ABDOMEN: Some distention, nontender EXTREMITIES : No LE swelling/tenderness, no other conspicuous deformities noted NEUROLOGIC : Coherent, no facial asymmetry, no other gross focality Results & Data Results & Data ([facility]) Vital Signs (Past 12 Hours) Vital Signs Temp Pulse Pulse Resp BP BP Pulse Ox 01/23/22 23:59 87 18 105/66 98 01/23/22 20:18 36.7 C 113 H 18 123/67 99 Laboratory Results Laboratory Results WBC 9.62 K/uL (4.8-10.8) 01/23/22 20:28 RBC 5.43 M/uL (4.7-6.1) 01/23/22 20:28 Hgb 16.2 g/dL (14.0-18.0) 01/23/22 20:28 Hct 44.2 % (42-52) 01/23/22 20:28 MCV 81.4 fL (80-100) 01/23/22 20: MCH 29.8 pg (25-34) 01/23/22: MCHC 36.7 g/dL (32-36) H 01/23/22 RDW Std Deviation 36.7 fL (36.4-46.3) 01/23/22 RDW Coeff of Tra 12.4 % (11.5-14.5) 01/23/22 Plt Count 222 K/uL (130-400) 01/23/22: MPV 10.1 fL (7.4-10.4) 01/23/22: Immature Gran % (Auto) 0.2 % 01/23/22: Neut % (Auto) 40.4 % 01/23/22: Lymph % (Auto) 42.4 % 01/23/22: [place] % (Auto) 10.0 % 01/23/22: Eos % (Auto) 6.3 % 01/23/22: Baso % (Auto) 0.7 % 01/23/22 Neut # (Auto) 3.88 K/uL (1.4-6.5) 01/23/22: Lymph # (Auto) 4.08 K/uL (1.2-3.4) H 01/23/22: [place] # (Auto) 0.96 K/uL (0.11-0.59) H 01/23/22: Eos # (Auto) 0.61 K/uL (0-0.5) H 01/23/22: Baso # (Auto) 0.07 K/uL (0-0.2) 01/23/22: Immature Gran # (Auto) 0.02 K/uL (0.00-0.02) 01/23/22 Sodium 117 mmol/L (136-145) L* 01/23/22: Potassium 4.8 mmol/L (3.5-5.1) 01/23/22: Chloride 86 mmol/L (98-107) L 01/23/22: Carbon Dioxide 22 mmol/L (21-32) 04/26/22 20:28 Anion Gap 9 (3-11) 01/23/22 20:28 BUN 27 mg/dl (6-23) H 01/23/22 20:28 Creatinine 1.50 mg/dl (0.6-1.4) H 01/23/22 20:28 Est Cr Clr Drug Dosing 57.9 ml/min 01/23/22 20:28 Est GFR ( Amer) 59.0 ml/min 01/23/22 20:28 Est GFR (Non-Af Amer) 50.9 ml/min 01/23/22 20:28 BUN/Creatinine Ratio 18.0 (10-20) 01/23/22 20:28 Glucose 220 mg/dl (70-99(Fasting)) H 01/23/22 20:28 Calcium 9.6 mg/dl (8.5-10.1) 01/23/22 20:28 Total Bilirubin 1.5 mg/dl (0.2-1.0) H 01/23/22 20:28 AST 22 U/L (13-39) 01/23/22 20:28 ALT 21 U/L (7-52) 01/23/22 20:28 Alkaline Phosphatase 65 U/L (34-104) 01/23/22 20:28 Total Protein 7.8 gm/dl (6.0-8.3) 01/23/22 20:28 Albumin 4.4 gm/dl (3.4-5.0) 01/23/22 20:28 Globulin 3.4 gm/dl (2.5-4.0) 01/23/22 20:28 Albumin/Globulin Ratio 1.3 (0.9-2) 01/23/22 20:28 SARS-CoV-2, RNA, NAAT NEGATIVE (NEGATIVE) 01/23/[address] abdomen pelvis initial read : No acute abnormalityalong the GI tract. Normal appendix. Liver, gallbladder, pancreas, spleen, adrenal glands, kidneys, and reproductive organs are unremarkable. No fluid collection or free air Chest x-ray as per my interpretation no congestion EKG as per my interpretation : Rate 95, NSR, normal axis, no ischemia
[2022-01-24] MEDS ORDERED: INSULIN GLARGINE SOLOSTAR 100 UNITS/ML 3 ML PEN SC STA (01:05)
[2022-01-24 01:24] LABS: Lyme Ab IgG w/WB Rflx Negative (Negative); Lyme Ab IgM w/WB Rflx Negative (Negative)
[2022-01-24 02:18] LABS: Appearance Urine Clear (Clear); Bilirubin Urine Negative (Negative); Blood Urine Negative (Negative); Color Urine Yellow; Glucose Urine UA Negative (Negative); Ketones Urine Negative (Negative); Leukocyte Esterase Urine Negative (Negative); Nitrite Urine Negative (Negative); Protein Urine Negative (Negative); Specific Gravity Urine 1.031 (1.000-1.030); Urobilinogen Urine Negative (Negative)
[2022-01-24] MEDS ORDERED: SODIUM CHLORIDE 0.9% 1000ML 1,000 ML IV ONE (02:28)
[2022-01-24] MEDS: MAGNESIUM SULFATE / D5W 1 GM/100 ML BAG IV SCH ×2 (02:50→06:52)
[2022-01-24] MEDS ORDERED: oxyCODONE HCL IR 5 MG TAB (IMMEDIATE RELEASE) PO PRN (04:44)
[2022-01-24] MEDS ORDERED: GLUCAGON FOR INJ 1 MG VIAL SQ PRN (04:44)
[2022-01-24] MEDS ORDERED: PROMETHAZINE HCL 12.5 MG in SODIUM CHLORIDE 0.9% 50 ML IV PRN (04:44)
[2022-01-24] MEDS ORDERED: GLUCOSE 10 TABS/TUBE PO PRN (04:44)
[2022-01-24] MEDS ORDERED: CARBOHYDRATES FOR HYPOGLYCEMIA PO PRN (04:44)
[2022-01-24] MEDS ORDERED: GLUCOSE 40% GEL 15 GM TUBE PO PRN (04:44)
[2022-01-24] MEDS ORDERED: DEXTROSE 50% 50 ML SYRINGE IV PRN (04:44)
[2022-01-24] MEDS ORDERED: ACETAMINOPHEN 325 MG TAB PO PRN (04:44)
[2022-01-24] MEDS: INSULIN ASPART PER UNIT SC SCH ×5 (06:35→20:38)
[2022-01-24] MEDS: HEPARIN SOD 5,000 UNIT/0.5 ML VIAL SQ SCH ×3 (06:45→22:38)
[2022-01-24] MEDS: LEVOTHYROXINE SODIUM 125 MCG TABLET PO SCH (06:51)
--- NOTE | 2022-01-24 07:31 | XRay Report ---
XR chest 1V portable CLINICAL HISTORY: hyponatremia TECHNIQUE: Single frontal radiograph of the chest was obtained. Comparison: Comparison is made to chest one view 07/17/2021 FINDINGS: No lines and tubes are seen. The cardiomediastinal silhouette is normal. The lungs are clear. No evid ence of pleural effusion or pneumothorax. IMPRESSION: No acute chest disease. ACT 112: Negative or not required by law. Electronically signed by: Javed Rivera M.D. 01/24/2022 7:30 AM
[2022-01-24 07:39] LABS: BUN Creatinine Ratio 17.9 (10-20); Calcium 9.1 mg/dl (8.5-10.1); Creatinine Clr Calc Pharmacy 59.9 ml/min; Est GFR (African American) 61.5 ml/min; Est GFR (Non-African American) 53.1 ml/min; Magnesium 1.9 mg/dl (1.7-2.4); Potassium 5.3 mmol/L (3.5-5.1)
--- NOTE | 2022-01-24 08:02 | CT Scan Report ---
CT SCAN OF THE ABDOMEN AND PELVIS WITH IV CONTRAST CLINICAL HISTORY: Nausea and vomiting. COMPARISON STUDY: Abdominal CT dated 07/17/2021. TECHNIQUE: Following the IV administration of 93 cc of Optiray 320, CT scan of the abdomen and pelvi s is performed from the lung bases to the proximal femora. Images are reviewed in the axial, sagittal , and coronal planes. IV contrast was administered without complication. A dose lowering technique wa s utilized adhering to the principles of ALARA. CT DOSE: 386.13 mGy.cm FINDINGS: Lung bases: The heart is normal in size and without pericardial effusion. The lung bases are clear. Liver: The contrast-enhanced liver is normal in size, contour, and attenuation. There is no intrahepa tic biliary ductal dilatation. The hepatic veins and portal veins are patent. Gallbladder: Unremarkable. Spleen: Normal in size and attenuation. Pancreas: Unremarkable. Adrenal glands: Unremarkable. Kidneys: The contrast enhanced kidneys are normal in size and without hydronephrosis. The kidneys enh ance symmetrically. A 1.3 cm cyst arises from the left upper pole. Abdominal vasculature: The abdominal aorta is normal in course and caliber. Bowel: There is no bowel obstruction. Mild fecal retention is seen throughout the colon. The appendix is well-visualized and normal. Peritoneum: There is no intraperitoneal free air or abdominal ascites. Lymphadenopathy: None. Pelvic viscera: The prostate gland is mildly enlarged and heterogeneous noting median lobe hypertroph y. The bladder wall appears circumferentially thickened. The seminal vesicles are normal as visualize d. Skeletal structures: No lytic or blastic lesions are seen. IMPRESSION: 1. No acute infectious or inflammatory findings are identified in the abdomen or pelvis. 2. There is no bowel obstruction. 3. The bladder wall appears circumferentially thickened. This may be related to chronic outlet obstru ction. Correlate with clinical findings and urinalysis. 4. Additional findings as above. ACT 112: Negative or not required by law. Electronically signed by: Francois Bowen M.D. 01/24/2022 8:00 AM
[2022-01-24] MEDS: ASPIRIN 81 MG ECTAB PO SCH (08:28)
[2022-01-24 09:01] LABS: Basophils # (auto) 0.06 K/uL (0-0.2); Basophils % (auto) 0.8 %; Eosinophils # (auto) 0.56 K/uL (0-0.5); Eosinophils % (auto) 7.1 %; Hematocrit (blood only) 40.7 % (42-52); Hemoglobin 14.5 g/dL (14.0-18.0); Immature Granulocytes # (auto) 0.01 K/uL (0.00-0.02); Immature Granulocytes % (auto) 0.1 %; Lymphocytes # (auto) 3.59 K/uL (1.2-3.4); Lymphocytes % (auto) 45.2 %; Mean Corpuscular Hemoglobin 29.1 pg (25-34); Mean Corpuscular Hgb Conc 35.6 g/dL (32-36); Mean Corpuscular Volume 81.6 fL (80-100); Mean Platelet Volume 10.3 fL (7.4-10.4); Monocytes # (auto) 0.97 K/uL (0.11-0.59); Monocytes % (auto) 12.2 %; Neutrophils # (auto) 2.75 K/uL (1.4-6.5); Neutrophils % (auto) 34.6 %; Platelet Count 219 K/uL (130-400); RDW Coefficient of Variation 12.5 % (11.5-14.5); RDW Standard Deviation 37.3 fL (36.4-46.3); Red Blood Count 4.99 M/uL (4.7-6.1); White Blood Count 7.94 K/uL (4.8-10.8)
--- NOTE | 2022-01-24 10:18 | Electrocardiogram Report ---
Test Reason : Blood Pressure : / mmHG Vent. Rate : 094 BPM Atrial Rate : 094 BPM P-R Int : 164 ms QRS Dur : 084 ms QT Int : 340 ms P-R-T Axes : 058 053 068 degrees QTc Int : 425 ms Normal sinus rhythm Normal ECG When compared with ECG of 17-JUL-2021 07:55, No significant change was found Confirmed by Jet Sanderson ([id number]) on 01/24/2022 10:18:04 AM Referred By: Brodie Calhoun Confirmed By:Jet Sanderson
--- NOTE | 2022-01-24 11:10 | Nephrology Consultation ---
Date of Consultation January 24, 2022 Assessment & Plan (1) Hyponatremia: Chronic hyponatremia with presenting sodium 117 at 2099January 23. Goal sodium for this evening 2099 is 123. Concern for volume depletion, but the cause of hypo-natremia not perfectly clear. slightly odd affect/ movements. Mild hyperkalemia for unclear reasons. Blood pressure is soft at times in the past 24 hours. Improving at acceptable rate. -Continue normal saline 60 mL hourly Added low potassium order to current clear liquid diet. No indication at this time for fluid limit ordered basic metabolic panel every 6 hours through 1800 today (2) CKD (chronic kidney disease) stage 3, GFR 30-59 ml/min: Very early nonalbumin uric CKD 3 with a baseline creatinine 1.3-1.4. At risk for contrast-induced nephropathy given IV contrast exposure and relatively dehydrated state Monitor BMP and continue liquid diet Monitor blood pressure; may need support with IV albumin History of Present Illness Reason for Consultation: hyponatremia Requesting Physician: Dr Boles Attending Physician: Collins Torres MD History of Present Illness 56 y/o M whom I'm asked to see for hyponatremia was admitted overnight for same after presenting for evaluation of 3 wks malaise, generalized weakness, chills, loss of appetite and decreased p.o. intake, transient/resolved diarrhea and found to have sN 119, K 5 on OP labs. He had been seen in PCP office earlier in the day yesterday and was also noted to have systolic blood pressures in the low 80s at that visit. Tickborne illness panel was also drawn and is currently pending as OP. Past medical history includes nonproteinuric early CKD 3A with baseline creatinine 1.3-1.4, diabetes on oral meds, hypothyroid, chronic cough. His blood pressure in clinic runs generally 100-1 teens without antihypertensive medication. His heart rate in clinic runs generally in the 90s to low 100s. Presenting sodium was 117 with chemistries otherwise unremarkable. He received 1 L of normal saline followed by maintenance normal saline at 60 mL hourly. His magnesium was repleted IV. Serum osms 268; urine osms 339; rd urine Na 54. Pt tells me he feels much better and is ready for d/c home laura. He does also admit he's still taking minimal po at this time d/t poor appetite. denies current diarrhea, n/v, sob, dysuria or gross hematuria, fall, fever, edema, change in abd girth, rash. denies hx of abnormal movements or tremors. does not know if he's lost weight. He does not use EtOH; no recent heavy use of nsaids > does use occasional advil allergies notwithstanding. does endorse some mild lower back pain with hospital bed. Allergies Allergy/AdvReac Type Severity Reaction Status Date / Time NSAIDS (Non-Steroidal Allergy Severe Unverified 01/23/22 22:50 Anti-Inflamma states "Almost like and asthmatic attack" Home Medications Medication Instructions Recorded Confirmed Type aspirin 81 mg tablet,delayed 81 mg PO DAILY #0 11/21/17 01/23/22 History release glyburide 1.25 mg tablet 1.25 mg PO QAM #0 11/21/17 01/23/22 History levothyroxine 125 mcg tablet 125 mcg PO QAM #0 11/21/17 01/23/22 History metformin 1,000 mg tablet 1,000 mg PO BIDM #0 tab 11/21/17 01/23/22 History simvastatin 20 mg tablet (Zocor) 20 mg PO HS #0 tab 11/21/17 01/23/22 History Patient History Medical History CKD (chronic kidney disease) stage 3, GFR 30-59 ml/min Diabetes mellitus type 2, controlled Hyperlipidemia Hyponatremia Hypothyroidism Surgical History No pertinent past surgical history Family History Other No pertinent family history Social History Smoking Status: Unknown if ever smoked Second Hand Exposure: No; Do You Dip or Chew Tobacco: No; Tobacco Cessation Education Requested by Patient: No Hx Alcohol Use: No Hx Substance Use: No Preferred Language: Mohawk Communication Ability: Effective Pizza Cook Required: No Beliefs That Will Affect Care: None marital status: Current Living Situation: Family Other Information That Helps Us Care for You: No Feels Safe at Home: Yes Safety Concerns: Feels Safe At This Time Assistive Devices: None Review of Systems Review of Systems: All systems reviewed & are unremarkable except as noted in Subjective Physical Exam Constitutional: well developed, well nourished, average body habitus and cooperative; no acute distress Eyes: EOM intact bilaterally ENMT: Ears: no external ear abnormality Nose: no external nose abnormality Mouth: + dry oral mucous membranes Neck: no nuchal rigidity Respiratory: normal respiratory effort Auscultation: + diminished lung sounds Cardiovascular: RRR, no murmur, no edema Gastrointestinal (Abdomen): Inspection/Auscultation: normal bowel sounds Percussion/Palpation: abdomen soft; abdomen nontender Musculoskeletal: Extremities: strength 5/5 throughout Skin: no rashes, warm and dry Neurologic: arzate, fluent speech, no tremor; ? slight movement tic > pill rolling RUE, slight choreiform mvts Psychiatric: Orientation: oriented x 3 Speech: normal rate/rhythm/volume of speech Affect: + anxious affect Results & Data ([facility]) Vital Signs (Past 12 Hours) Vital Signs Temp Pulse Pulse Resp BP BP Pulse Ox 01/24/22 09:00 87 01/24/22 07:32 37.1 C 84 16 104/70 98 01/24/22 05:48 37.1 C 84 18 108/67 97 01/24/22 05:28 37.1 C 84 18 108/67 97 01/24/22 04:21 78 18 108/85 01/24/22 03:30 75 18 103/71 98 01/24/22 01:45 75 15 97 01/24/22 01:30 83 18 01/24/22 01:15 79 17 117/69 98 01/24/22 01:02 85 21 117/69 01/24/22 00:45 80 15 100 01/24/22 00:30 86 23 99 01/24/22 00:15 83 16 98 01/24/22 00:00 79 19 112/64 99 01/23/22 23:59 87 18 105/66 98 01/23/22 23:57 81 17 105/66 98 01/23/22 23:45 77 20 01/23/22 23:30 81 21 01/23/22 23:15 89 22 Laboratory Results 01/24/22 06:08 01/24/22 06:08 Hyponatremia labs as per HPI Admission urinalysis: Specific gravity 1031; otherwise bland Lyme disease antibodies GG, IgM and SARS-CoV-2 RNA all negative Diagnostic Findings Chest x-ray: No acute disease CT abdomen pelvis with IV contrast Lung bases: The heart is normal in size and without pericardial effusion. The lung bases are clear. Liver: The contrast-enhanced liver is normal in size, contour, and attenuation. There is no intrahepatic biliary ductal dilatation. The hepatic veins and portal veins are patent. Gallbladder: Unremarkable. Spleen: Normal in size and attenuation. Pancreas: Unremarkable. Adrenal glands: Unremarkable. Kidneys: The contrast enhanced kidneys are normal in size and without hydronephrosis. The kidneys enhance symmetrically. A 1.3 cm cyst arises from the left upper pole. Abdominal vasculature: The abdominal aorta is normal in course and caliber. Bowel: There is no bowel obstruction. Mild fecal retention is seen throughout the colon. The appendix is well-visualized and normal. Peritoneum: There is no intraperitoneal free air or abdominal ascites. Lymphadenopathy: None. Pelvic viscera: The prostate gland is mildly enlarged and heterogeneous noting median lobe hypertrophy. The bladder wall appears circumferentially thickened. The seminal vesicles are normal as visualized. Skeletal structures: No lytic or blastic lesions are seen. IMPRESSION: 1. No acute infectious or inflammatory findings are identified in the abdomen or pelvis. 2. There is no bowel obstruction. 3. The bladder wall appears circumferentially thickened. This may be related to chronic outlet obstruction. Correlate with clinical findings and urinalysis. 4. Additional findings as above.
[2022-01-24 13:00] LABS: BUN Creatinine Ratio 17.4 (10-20); Calcium 9.1 mg/dl (8.5-10.1); Creatinine Clr Calc Pharmacy 60.3 ml/min; Est GFR (Non-African American) 53.5 ml/min; Potassium 4.8 mmol/L (3.5-5.1)
--- NOTE | 2022-01-24 16:55 | Communication Note ---
Date of Service: January 24, 2022 follow up to noon lab > -increased NS to 100 ml/hr -recheck bmp ordered for 2100
--- NOTE | 2022-01-24 18:35 | Hospitalist Progress Note ---
Date of Service January 24, 2022 delayed entry date of service noted above Assessment & Plan (1) Hyponatremia: Plan: possible Dehydration, SIADH - continue gentle IV fluids Nephro consulted ARF on CKD secondary to above - crea still 1.4 hypertension, stable DM2 on oral medications, reasonable control as of recent hemoglobin A1c of 7.31 December 2021 - Lantus And ISS hypothyroidism, euthyroid based on TSH DVT prophylaxis. Heparin subcu Full code plan of care discussed with patient in detail and at length all questions answered he is understanding, agreeable, comfortable with the plan of care Admission and Anticipated Discharge Date Admission Date: January 24, 2022 Subjective ff up for hyponatremia, etc seen resting in bed, not in distress, comfortable feels the same still has weakness, poor appetite no chest pain, dyspnea, palpitations, dizziness no abdominal pain ,nausea no other symptoms Review of Systems Review of Systems: all noted and negative except for above Physical Exam Physical Exam: General- oriented x 3, not in distress, speaks in sentences with no effort or accessory muscle use Head- atraumatic Eyes- PERRL, EOMI, anicteric ENT- oropharynx clear Neck- supple, no JVD, no adenopathy, no thyromegaly; carotids +2/2, no bruits appreciated Lungs- clear to auscultation bilaterally, no rales/wheezes Heart- normal rate, regular rhythm; no murmur, no gallop, no rub appreciated Abdomen- normal bowel sounds, nondistended, soft, nontender, no masses or hepatosplenomegaly Extremities- no pretibial edema, no calf tenderness; peripheral pulses intact Neuro- alert, oriented x 3; CN 2-12 grossly intact; motor 5/5 bilaterally;sensation 100% on all extremities; no other gross focal neurologic deficits Skin- warm & dry Results & Data Results & Data ([facility]) Vital Signs (Past 12 Hours) Vital Signs Temp Pulse Pulse Resp BP Pulse Ox 01/24/22 16:36 84 01/24/22 14:29 36.6 C 88 18 102/65 100 01/24/22 11:26 36.4 C L 77 18 93/56 L 96 01/24/22 09:00 87 01/24/22 07:32 37.1 C 84 16 104/70 98 all noted and reviewed including below
[2022-01-24] MEDS ORDERED: SIMVASTATIN 20 MG TAB PO SCH (21:00)
[2022-01-24 21:27] LABS: BUN Creatinine Ratio 18.7 (10-20); Calcium 8.9 mg/dl (8.5-10.1); Creatinine Clr Calc Pharmacy 64.8 ml/min; Est GFR (African American) 67.7 ml/min; Est GFR (Non-African American) 58.4 ml/min; Potassium 4.9 mmol/L (3.5-5.1)
[2022-01-25] MEDS: LEVOTHYROXINE SODIUM 125 MCG TABLET PO SCH (06:24)
[2022-01-25] MEDS: HEPARIN SOD 5,000 UNIT/0.5 ML VIAL SQ SCH ×3 (06:24→21:28)
[2022-01-25] MEDS: ASPIRIN 81 MG ECTAB PO SCH (08:01)
[2022-01-25] MEDS: INSULIN ASPART PER UNIT SC SCH ×4 (08:01→21:33)
[2022-01-25] MEDS: INSULIN GLARGINE SOLOSTAR 100 UNITS/ML 3 ML PEN SC SCH (08:01)
[2022-01-25] MEDS ORDERED: ERGOCALCIFEROL 50,000 UNITS 1250 MCG CAP PO ONE (09:45)
--- NOTE | 2022-01-25 09:53 | Nephrology Progress Note ---
Date of Service January 25, 2022 Assessment & Plan (1) Hyponatremia: Plan: Chronic hyponatremia with presenting sodium 117 at 2099January 23. Goal sodium for this evening 2099 is 126, based on sNa last evening 120. Concern for volume depletion, but the cause of hypo-natremia not perfectly clear. slightly odd affect/ movements. Mild hyperkalemia for unclear reasons. Blood pressure remains soft at times - 100s systolic. Improvement has stalled -await AM labs -on exam he is slightly dry to euvolemic continue low potassium order diet. >>>Needs strict I/O and daily standing weight >> so ordered agree w/ already ordered again basic metabolic panel every 6 hours through 1800 today >will order orthostatics and repeat urine, serum studies (serum osms abnormally high for degree of low Na) >>>ongoing mild hyperkalemia and bicarb dropping noted on AM labs though improved on noon labs >> will try bicarb rich fluid and continue hydration -continue to hold off on fluid limit (2) CKD (chronic kidney disease) stage 3, GFR 30-59 ml/min: Plan: Very early nonalbumin uric CKD 3 with a baseline creatinine 1.3-1.4. At risk for contrast-induced nephropathy given IV contrast exposure and relatively dehydrated state Monitor BMP and continue liquid diet Monitor blood pressure; may need support with IV albumin or NS Admission and Anticipated Discharge Date Admission Date: January 24, 2022 Subjective sNa stubbornly plateau'd 120 as of last evening despite increased NS at 100 mL hourly which he had from 1730>0230; labs this am pending; pt adamant he must leave today; no n/v, +thirst and c/o dry mouth; no edema; no gait concenrs, no uncontrolled pain, no sob; feels he could tolerate regular diet Review of Systems Review of Systems: All systems reviewed & are unremarkable except as noted in Subjective Physical Exam Constitutional: well developed, well nourished, average body habitus and cooperative; no acute distress Eyes: EOM intact bilaterally ENMT: Ears: no external ear abnormality Nose: no external nose abnormality Mouth: + dry oral mucous membranes Neck: no nuchal rigidity Respiratory: normal respiratory effort Auscultation: + diminished lung sounds Cardiovascular: RRR, no murmur, no edema Gastrointestinal (Abdomen): Inspection/Auscultation: normal bowel sounds Percussion/Palpation: abdomen soft; abdomen nontender Musculoskeletal: Extremities: strength 5/5 throughout Skin: no rashes, warm and dry Neurologic: arzate, fluent speech, nad pill rolling/ slight choreiform mvts not observed today Psychiatric: Orientation: oriented x 3 Speech: normal rate/rhythm/volume of speech Affect: + anxious affect Results & Data ([facility]) Vital Signs (Past 12 Hours) Vital Signs Temp Pulse Pulse Resp BP Pulse Ox 01/25/22 07:26 36.4 C L 67 18 107/72 97 01/25/22 02:41 36.6 C 93 H 20 105/67 98 01/25/22 00:50 80 01/25/22 00:02 36.5 C 78 18 100/63 96 Laboratory Results 01/24/22 06:08
[2022-01-25 10:03] LABS: BUN Creatinine Ratio 18.6 (10-20); Calcium 9.4 mg/dl (8.5-10.1); Est GFR (African American) 64.2 ml/min; Est GFR (Non-African American) 55.4 ml/min; Potassium 5.2 mmol/L (3.5-5.1)
[2022-01-25 12:32] LABS: BUN Creatinine Ratio 18.4 (10-20); Calcium 9.4 mg/dl (8.5-10.1); Creatinine Clr Calc Pharmacy 61.6 ml/min; Est GFR (African American) 63.6 ml/min; Est GFR (Non-African American) 54.9 ml/min; Potassium 5.1 mmol/L (3.5-5.1)
[2022-01-25] MEDS ORDERED: SODIUM BICARBONATE 8.4% 75 MEQ in SODIUM CHLORIDE 0.45 % 1,000 ML IV SCH (14:00)
--- NOTE | 2022-01-25 16:51 | Hospitalist Progress Note ---
Date of Service January 25, 2022 Assessment & Plan (1) Hyponatremia: Plan: Hypovolemic - given IV NSS Na improved from 117 to 122 Nephro consulted NSS on HCO3 - monitor Na CKD 3 - crea 1.4 at baseline - monitor closely hypertension - on the lower side monitor DM2 on oral medications, reasonable control as of recent hemoglobin A1c of 7.31 December 2021 - ISS Hypothyroidism DVT prophylaxis. Heparin subcu Full code plan of care discussed with patient in detail and at length all questions answered he is understanding, agreeable, comfortable with the plan of care Admission and Anticipated Discharge Date Admission Date: January 24, 2022 Subjective ff up for hyponatremia, etc seen resting in bed, sitting up appears brighter, more energetic states he feels improved today no nausea/vomiting, diarrhea ate all of his lunch no chest pain, dyspnea, palpitations, dizziness expressed frustration with still being in the hospital explained plan of care patient verbalized understanding and agreement Review of Systems Review of Systems: all noted and negative except for above Physical Exam Physical Exam: General- oriented x 3, not in distress, speaks in sentences with no effort or accessory muscle use Eyes- anicteric Neck- no JVD Lungs- clear breath sounds bilaterally, no rales/wheezes Heart- normal rate, regular rhythm; no murmurs Abdomen- normal bowel sounds, nondistended, soft, nontender Extremities- no pretibial edema, no calf tenderness Neuro- alert, oriented x 3; no gross focal neurologic deficits Skin- warm & dry Results & Data Results & Data ([facility]) Vital Signs (Past 12 Hours) Vital Signs Temp Pulse Resp BP Pulse Ox 01/25/22 15:08 36.8 C 18 98 01/25/22 11:34 36.6 C 97 H 18 102/66 99 01/25/22 07:26 36.4 C L 67 18 107/72 97 all noted and reviewed including below
--- NOTE | 2022-01-25 18:48 | Communication Note ---
Date of Service: January 25, 2022 sodium levels remain low today. this PM approx 1500 I started him on IVF. challenging situation b/c he responds as though volume depleted but labs suggest SIADH. does not meet criteria for orthostatic + but does drop/change some suggesting position change 1800 labs pending RECOMMEND -if sNa same/higher, continue IVF -if sNa lower, start salt tabs 1 gm tid and start urea 15 gm bid both tonight AND recheck bmp in 6 hrs Hospitalist updated
[2022-01-25 19:10] LABS: BUN Creatinine Ratio 17.2 (10-20); Calcium 9.1 mg/dl (8.5-10.1); Creatinine Clr Calc Pharmacy 55.3 ml/min; Est GFR (African American) 55.9 ml/min; Est GFR (Non-African American) 48.2 ml/min
[2022-01-25] MEDS: UREA (UREA-NA) 15 GM PACK PO SCH (21:26)
[2022-01-25] MEDS: SODIUM CHLORIDE 1 GM TABLET PO SCH (21:26)
[2022-01-26 01:42] LABS: BUN Creatinine Ratio 26.8 (10-20); Calcium 9.2 mg/dl (8.5-10.1); Creatinine Clr Calc Pharmacy 55.3 ml/min; Est GFR (African American) 55.9 ml/min; Est GFR (Non-African American) 48.2 ml/min; Potassium 5.2 mmol/L (3.5-5.1)
[2022-01-26] MEDS: LEVOTHYROXINE SODIUM 125 MCG TABLET PO SCH (06:11)
[2022-01-26] MEDS: HEPARIN SOD 5,000 UNIT/0.5 ML VIAL SQ SCH ×3 (06:11→21:48)
[2022-01-26] MEDS: SODIUM CHLORIDE 1 GM TABLET PO SCH ×3 (07:47→17:26)
[2022-01-26] MEDS: UREA (UREA-NA) 15 GM PACK PO SCH (07:47)
[2022-01-26] MEDS: ASPIRIN 81 MG ECTAB PO SCH (07:48)
[2022-01-26] MEDS: INSULIN ASPART PER UNIT SC SCH ×4 (08:01→21:43)
[2022-01-26] MEDS: INSULIN GLARGINE SOLOSTAR 100 UNITS/ML 3 ML PEN SC SCH (08:01)
[2022-01-26 08:26] LABS: BUN Creatinine Ratio 26.6 (10-20); Calcium 9.3 mg/dl (8.5-10.1); Creatinine Clr Calc Pharmacy 60.7 ml/min; Est GFR (African American) 62.6 ml/min; Potassium 5.2 mmol/L (3.5-5.1)
--- NOTE | 2022-01-26 09:27 | Nephrology Progress Note ---
Date of Service January 26, 2022 Assessment & Plan (1) Hyponatremia: Plan: Chronic hyponatremia with presenting sodium 117 at 2100 January 23. Concern for volume depletion initially , but the cause of hypo-natremia not perfectly clear. slightly odd affect/ movements. Mild hyperkalemia for unclear reasons. Blood pressure remains soft at times - 100s systolic. continue low potassium order diet. >>>Needs strict I/O and daily standing weight >repeat urine, serum studies - Renal salt wasting/SIADH, likely had fluid depletion in the background - His sodium has improved with salt tablets and Urea - Continue on both-- he will need this on discharge. - Bath fluid restriction of 1.8 / 24 hr. -He does not like the taste on UREA, if he refuses this , can be started on Torsemide 10 mg BID. - He needs f/u with nephrology within 3 days with repeat BMP (2) CKD (chronic kidney disease) stage 3, GFR 30-59 ml/min: Plan: Very early nonalbumin uric CKD 3 with a baseline creatinine 1.3-1.4. At risk for contrast-induced nephropathy given IV contrast exposure and relatively dehydrated state Monitor BMP and continue liquid diet Monitor blood pressure; may need support with IV albumin or NS Admission and Anticipated Discharge Date Admission Date: January 24, 2022 Subjective ff up for hyponatremia, etc Comfortable, Alert and oriented Passing urine NO edema Review of Systems Review of Systems: All systems reviewed & are unremarkable except as noted in Subjective Physical Exam Physical Exam: onstitutio nal: well develop ed, well nourished , average body hab itus and cooperati ve; no acute dis tress Eyes: EOM intact b ilaterally ENMT: Ears: no ext ernal ear abnormal ity Nose: no exte rnal nose abnormal ity Mouth: + dr y oral mucous memb ranes Neck: no nuchal ri gidity Respiratory : normal respi ratory effort Aus cultation: + dimin ished lung sounds Cardiovascu lar: RRR, no murm ur, no edema Gastrointes tinal (Abdomen): Inspection/Aus cultation: rhea l bowel sounds Pe rcussion/Palpation : abdomen soft; ab domen nontender Musculoskel etal: Extremities: strength 5/5 thro ughout Skin: no rashes, w arm and dry Neurologic: arzate, fluent speech, nad pil l rolling/ slight choreiform mvts no t observed today Psychiatric : Orientation: oriented x 3 Spe ech: normal rate/r hythm/volume of sp eech Affect: + anxious affect Results & Data ([facility]) Vital Signs (Past 12 Hours) Vital Signs Temp Pulse Pulse Resp BP Pulse Ox 01/26/22 08:05 36.5 C 99 H 18 120/91 94 01/26/22 03:48 36.7 C 97 H 18 99/67 L 98 01/25/22 23:00 91 H 01/25/22 22:06 36.9 C 97 H 18 96/64 L 96 Laboratory Results 01/24/22 06:08 01/26/22 07:29
[2022-01-26 15:16] LABS: BUN Creatinine Ratio 31.4 (10-20); Calcium 9.4 mg/dl (8.5-10.1); Creatinine Clr Calc Pharmacy 55.6 ml/min; Est GFR (African American) 56.3 ml/min; Est GFR (Non-African American) 48.6 ml/min; Potassium 4.6 mmol/L (3.5-5.1)
[2022-01-26] MEDS: TORSEMIDE 10 MG TAB PO SCH (17:26)
--- NOTE | 2022-01-26 18:41 | Hospitalist Progress Note ---
Date of Service January 26, 2022 Assessment & Plan (1) Hyponatremia: Plan: Hypovolemic Hyponatremia possible SIADH - given IV NSS Na improved from 117 to 122 NSS on HCO3 given then Na decreased to 119 placed on Salt tab, Urea Na 122 urea changed to Torsemide BID due to patient's poor tolerance discussed with nephro - monitor Na CKD 3 - crea 1.5 at baseline - monitor closely Hypertension - on the lower side monitor DM2 on oral medications, reasonable control as of recent hemoglobin A1c of 7.31 December 2021 - ISS Hypothyroidism DVT prophylaxis. Heparin subcu Full code plan of care discussed with patient in detail and at length all questions answered he is understanding, agreeable, comfortable with the plan of care Admission and Anticipated Discharge Date Admission Date: January 24, 2022 Subjective ff up for hyponatremia, etc seen resting in bed, using his tablet comfortable states he feels fine overall no nausea, vomiting, abdominal pain, diarrhea appetite is good unable to tolerate urea no chest pain, dyspnea, palpitations, dizziness no other symptoms Review of Systems Review of Systems: all noted and negative except for above Physical Exam Physical Exam: General- oriented x 3, not in distress, speaks in sentences with no effort or accessory muscle use Eyes- anicteric Neck- no JVD Lungs- clear BS bilaterally, no rales/wheezes Heart- normal rate, regular rhythm; no murmurs Abdomen- normal bowel sounds, nondistended, soft,no tenderness Extremities- no pretibial edema, no calf tenderness Neuro- alert, oriented x 3; no gross focal neurologic deficits Skin- warm & dry Results & Data Results & Data ([facility]) Vital Signs (Past 12 Hours) Vital Signs Temp Pulse Resp BP Pulse Ox 01/26/22 15:54 36.6 C 99 H 18 107/71 99 01/26/22 13:10 97 01/26/22 10:49 36.6 C 97 H 18 94/65 L 96 01/26/22 08:05 36.5 C 99 H 18 120/91 94 all noted and reviewed including below
[2022-01-27] MEDS: HEPARIN SOD 5,000 UNIT/0.5 ML VIAL SQ SCH ×3 (06:04→21:44)
[2022-01-27] MEDS: LEVOTHYROXINE SODIUM 125 MCG TABLET PO SCH (06:04)
[2022-01-27] MEDS: ASPIRIN 81 MG ECTAB PO SCH (08:38)
[2022-01-27] MEDS: TORSEMIDE 10 MG TAB PO SCH (08:39)
[2022-01-27] MEDS: SODIUM CHLORIDE 1 GM TABLET PO SCH ×3 (08:39→20:45)
[2022-01-27] MEDS: INSULIN ASPART PER UNIT SC SCH ×4 (09:13→20:45)
[2022-01-27] MEDS: INSULIN GLARGINE SOLOSTAR 100 UNITS/ML 3 ML PEN SC SCH (09:13)
[2022-01-27 10:07] LABS: BUN Creatinine Ratio 29.9 (10-20); Calcium 9.9 mg/dl (8.5-10.1); Est GFR (African American) 51.9 ml/min; Est GFR (Non-African American) 44.7 ml/min; Uric Acid 9.6 mg/dl (2.6-7.2)
[2022-01-27 10:21] LABS: Thyroid Stimulating Hormone 12.008 uIu/ml (0.300-4.500)
[2022-01-27 10:23] LABS: T4 Free Thyroxine 0.89 ng/dl (0.61-1.60)
--- NOTE | 2022-01-27 10:25 | Nephrology Progress Note ---
Date of Service January 27, 2022 Assessment & Plan (1) Hyponatremia: Plan: Acute on chronic hyponatremia with presenting sodium 117 at 2100 January 23. Etiology syndrome of inappropriate ADH. Serum osmolality of 272. Urine osmolality of 364 and urine sodium of 70. Sodium is 122 today > We will restart urea 30 g twice daily. Continue salt tablets -fluid restriction of 1.2/24 hr. -Monitor sodium daily -Stop torsemide (2) CKD (chronic kidney disease) stage 3, GFR 30-59 ml/min: Plan: Very early nonalbumin uric CKD 3 with a baseline creatinine 1.3-1.4. At risk for contrast-induced nephropathy given IV contrast exposure and relatively dehydrated state Monitor BMP and continue liquid diet Monitor blood pressure; avoid hypotension -Stop torsemide Admission and Anticipated Discharge Date Admission Date: January 24, 2022 Subjective Seen in follow-up for hyponatremia. He feels well. Main complaint is low blood pressure. Sodium remains low at 122. No leg swelling. He is eating well. No diarrhea or vomiting Review of Systems Review of Systems: All other systems were reviewed and negative except as noted in HPI Physical Exam Physical Exam: General exam: Appears comfortable, no acute distress HEENT: Pupils are equal and reactive to light Neck: No JVD, neck is supple trachea is midline Respiratory system: Clear breath sounds bilaterally. Gastrointestinal: Abdomen is soft, non distended, non tender, bowel sounds are present CVS: Regular rate and rhythm. No murmurs, rubs or gallops Musculoskeletal: No joint or muscle tenderness Extremities: Non tender, no edema, peripheral pulses are present Neuro: Oriented, no tremors, no focal neurological deficits Skin: No rashes Results & Data ([facility]) Vital Signs (Past 12 Hours) Vital Signs Temp Pulse Pulse Resp BP BP Pulse Ox 01/27/22 07:45 104 H 01/27/22 07:33 36.7 C 88 16 95/64 L 98 01/27/22 03:41 37 C 74 18 92/67 L 97 01/26/22 23:54 84 01/26/22 23:13 36.7 C 93 H 20 109/69 98 Laboratory Results 01/27/22 09:09
[2022-01-27] MEDS: UREA (UREA-NA) 15 GM PACK PO SCH ×2 (11:30→20:45)
[2022-01-27] MEDS ORDERED: COSYNTROPIN 250 MCG in SYRINGE 4 ML IV ONE (11:39)
[2022-01-27] MEDS ORDERED: Cosyntropin 250mcg IVP **Standard-Dose Cortrosyn Stim Test IV SCH (12:00)
[2022-01-27] MEDS: HYDROCORTISONE SOD 100 MG in SYRINGE 0 ML IV SCH ×2 (14:58→21:44)
--- NOTE | 2022-01-27 17:44 | Hospitalist Progress Note ---
Date of Service January 27, 2022 Assessment & Plan (1) Hyponatremia: Plan: Hypovolemic Hyponatremia possible SIADH Adrenal insufficiency - given IV NSS Na improved from 117 to 122 NSS on HCO3 given then Na decreased to 119 placed on Salt tab, Urea Na 122 -Random cortisol low at 4 Cosyntropin test positive Discussed with customizer at [facility] Start hydrocortisone 100 mg IV every 8, then taper -Continue salt tabs, urea CKD 3 - crea 1.6 - monitor closely Hypertension - on the lower side monitor DM2 on oral medications, reasonable control as of recent hemoglobin A1c of 7.31 December 2021 - ISS Hypothyroidism -Continue levothyroxine 125 mcg daily DVT prophylaxis. Heparin subcu Full code plan of care discussed with patient in detail and at length all questions answered he is understanding, agreeable, comfortable with the plan of care Admission and Anticipated Discharge Date Admission Date: January 24, 2022 Subjective Follow-up for hyponatremia, etc. Seen sitting up in bed, comfortable not in distress States he feels about the same No nausea, vomiting, abdominal pain, confusion No shortness of breath, chest pain, palpitations, dizziness Review of Systems Review of Systems: all noted and negative except for above Physical Exam Physical Exam: General- oriented x 3, not in distress, speaks in sentences with no effort or accessory muscle use Eyes- anicteric Neck- no JVD Lungs- clear BS bilaterally, no rales/wheezes Heart- normal rate, regular rhythm; no murmurs Abdomen- normal bowel sounds, nondistended, soft, no tenderness Extremities- no pretibial edema, no calf tenderness Neuro- alert, oriented x 3; no gross focal neurologic deficits Skin- warm & dry Results & Data Results & Data ([facility]) Vital Signs (Past 12 Hours) Vital Signs Temp Pulse Pulse Resp BP BP Pulse Ox 01/27/22 16:02 100 H 01/27/22 15:29 36.5 C 98 H 17 95/68 L 99 01/27/22 10:51 36.6 C 97 H 19 88/64 L 97 01/27/22 07:45 104 H 01/27/22 07:33 36.7 C 88 16 95/64 L 98 all noted and reviewed including below
[2022-01-28] MEDS: LEVOTHYROXINE SODIUM 125 MCG TABLET PO SCH (05:30)
[2022-01-28] MEDS: HYDROCORTISONE SOD 100 MG in SYRINGE 0 ML IV SCH (05:30)
[2022-01-28] MEDS: HEPARIN SOD 5,000 UNIT/0.5 ML VIAL SQ SCH ×3 (05:31→20:53)
[2022-01-28 07:03] LABS: BUN Creatinine Ratio 51.1 (10-20); Calcium 10.2 mg/dl (8.5-10.1); Creatinine Clr Calc Pharmacy 46.2 ml/min; Est GFR (African American) 44.9 ml/min; Est GFR (Non-African American) 38.8 ml/min; Potassium 4.9 mmol/L (3.5-5.1)
[2022-01-28 08:01] LABS: Adenovirus F 40/41 PCR Not Detected (NotDetected); Astrovirus PCR Not Detected (NotDetected); Campylobacter PCR Not Detected (NotDetected); Clostridium diff Toxin A/B PCR Not Detected (NotDetected); Cryptosporidium PCR Not Detected (NotDetected); Cyclospora cayetanensis PCR Not Detected (NotDetected); Entamoeba histolytica PCR Not Detected (NotDetected); Enteroaggregative E.coli(EAEC) Not Detected (NotDetected); Enteropathogenic E.coli (EPEC) Not Detected (NotDetected); Enterotoxigenic E.coli (ETEC) Not Detected (NotDetected); Giardia lamblia PCR Not Detected (NotDetected); Norovirus GI/GII PCR Not Detected (NotDetected); Plesiomonas shigelloides PCR Not Detected (NotDetected); Rotavirus A PCR Not Detected (NotDetected); Salmonella PCR Not Detected (NotDetected); Sapovirus PCR Not Detected (NotDetected); Shiga-like Toxin E.coli (STEC) Not Detected (NotDetected); Shigella/Enteroinvasive E.coli Not Detected (NotDetected); Vibrio cholerae PCR Not Detected (NotDetected); Vibrio species PCR Not Detected (NotDetected); Yersinia enterocolitica PCR Not Detected (NotDetected)
[2022-01-28] MEDS: ASPIRIN 81 MG ECTAB PO SCH (08:16)
[2022-01-28] MEDS: SODIUM CHLORIDE 1 GM TABLET PO SCH ×3 (08:17→20:52)
[2022-01-28] MEDS ORDERED: UREA (UREA-NA) 15 GM PACK PO SCH (09:00)
[2022-01-28] MEDS ORDERED: SODIUM CHLORIDE 1 GM TABLET PO ONE (09:00)
[2022-01-28] MEDS: INSULIN ASPART PER UNIT SC SCH ×4 (09:26→20:52)
[2022-01-28] MEDS: INSULIN GLARGINE SOLOSTAR 100 UNITS/ML 3 ML PEN SC SCH (09:26)
--- NOTE | 2022-01-28 10:09 | Nephrology Progress Note ---
Date of Service January 28, 2022 Assessment & Plan (1) Hyponatremia: Plan: Acute on chronic hyponatremia with presenting sodium 117 at 2100 January 23. Etiology is likely due to adrenal insufficiency and hypothyroidism. Serum osmolality of 272. Urine osmolality of 364 and urine sodium of 70. Sodium is 122 today. > Stop urea today. continue salt tablets -Repeat urine osmolality, urine sodium and serum osmolality. Repeat serum sodium at 2 PM -fluid restriction of 1.2/24 hr. -Monitor sodium daily (2) CKD (chronic kidney disease) stage 3, GFR 30-59 ml/min: Plan: Very early nonalbumin uric CKD 3 with a baseline creatinine 1.3-1.4. At risk for contrast-induced nephropathy given IV contrast exposure and relatively dehydrated state. Creatinine 1.9 today likely hemodynamically mediated. We u nable to give fluids due to hyponatremia Monitor BMP and continue liquid diet Monitor blood pressure; avoid hypotension -Stop torsemide Admission and Anticipated Discharge Date Admission Date: January 24, 2022 Subjective Seen in follow-up for hyponatremia. Patient was diagnosed with adrenal insufficiency and now on hydrocortisone. Sodium remains stable at 122. BUN is much higher due to urea and hydrocortisone. Patient feels better denies any shortness of breath. Stable dizziness if standing for long period. Review of Systems Review of Systems: All other systems were reviewed and negative except as noted in HPI Physical Exam Physical Exam: General exam: Appears comfortable, no acute distress HEENT: Pupils are equal and reactive to light Neck: No JVD, neck is supple trachea is midline Respiratory system: Clear breath sounds bilaterally. Gastrointestinal: Abdomen is soft, non distended, non tender, bowel sounds are present CVS: Regular rate and rhythm. No murmurs, rubs or gallops Musculoskeletal: No joint or muscle tenderness Extremities: Non tender, no edema, peripheral pulses are present Neuro: Oriented, no tremors, no focal neurological deficits Skin: No rashes Results & Data ([facility]) Vital Signs (Past 12 Hours) Vital Signs Temp Pulse Pulse Resp BP Pulse Ox 01/28/22 07:44 89 01/28/22 06:39 36.3 C L 101 H 18 100/64 99 01/28/22 03:37 36.9 C 94 H 18 99/65 L 97 01/27/22 23:23 36.8 C 101 H 18 97/64 L 97 01/27/22 22:20 102 H Laboratory Results 01/28/22 06:09
[2022-01-28] MEDS: HYDROCORTISONE SOD 50 MG in SYRINGE 0 ML IV SCH ×2 (14:22→20:56)
--- NOTE | 2022-01-28 16:24 | Hospitalist Progress Note ---
Date of Service January 28, 2022 Assessment & Plan (1) Hyponatremia: Plan: Hypovolemic Hyponatremia possible SIADH Adrenal insufficiency - given IV NSS Na improved from 117 to 122 NSS on HCO3 given then Na decreased to 119 placed on Salt tab, Urea Na 122 -Random cortisol low at 4 Cosyntropin test positive Discussed with water jet operator at [facility] Start hydrocortisone 100 mg IV every 8, then taper - 01/28 Na still discussed with Nephro continue salt tab -hydrocortisone 50mg q8h then q12h then PO 20mg in , 10mg at PM -Continue salt tabs, urea CKD 3 - crea 1.8 - monitor closely Hypertension - on the lower side monitor DM2 on oral medications, reasonable control as of recent hemoglobin A1c of 7.31 December 2021 - ISS Hypothyroidism -Continue levothyroxine 125 mcg daily DVT prophylaxis. Heparin subcu Full code plan of care discussed with patient in detail and at length all questions answered he is understanding, agreeable, comfortable with the plan of care Admission and Anticipated Discharge Date Admission Date: January 24, 2022 Subjective ff up for hyponatremia, etc seen resting in bed, comfortable states he feels somewhat improved today no chest pain, dyspnea, palpitations, dizziness no other new symptoms Review of Systems Review of Systems: all noted and negative except for above Physical Exam Physical Exam: General- oriented x 3, not in distress, speaks in sentences with no effort or accessory muscle use Eyes- anicteric Neck- no JVD Lungs- clear breath sounds , no crackles, no wheezing bilaterally Heart- normal rate, regular rhythm; no murmurs Abdomen- normal bowel sounds, nondistended, soft, nontender Extremities- no pretibial edema, no calf tenderness Neuro- alert, oriented x 3; no gross focal neurologic deficits Skin- warm & dry Results & Data Results & Data ([facility]) Vital Signs (Past 12 Hours) Vital Signs Temp Pulse Pulse Resp BP Pulse Ox 01/28/22 15:16 36.3 C L 96 H 17 108/71 99 01/28/22 15:14 97 H 01/28/22 10:50 36.5 C 99 H 18 101/68 96 01/28/22 07:44 89 01/28/22 06:39 36.3 C L 101 H 18 100/64 99 all noted and reviewed including below
[2022-01-29] MEDS: HYDROCORTISONE SOD 50 MG in SYRINGE 0 ML IV SCH (05:58)
[2022-01-29] MEDS: LEVOTHYROXINE SODIUM 125 MCG TABLET PO SCH (05:58)
[2022-01-29] MEDS: HEPARIN SOD 5,000 UNIT/0.5 ML VIAL SQ SCH ×2 (05:59→13:49)
[2022-01-29 07:10] LABS: BUN Creatinine Ratio 40.6 (10-20); Calcium 9.7 mg/dl (8.5-10.1); Creatinine Clr Calc Pharmacy 46.4 ml/min; Est GFR (African American) 45.2 ml/min; Potassium 5.2 mmol/L (3.5-5.1)
[2022-01-29] MEDS: SODIUM CHLORIDE 1 GM TABLET PO SCH ×2 (08:06→13:49)
[2022-01-29] MEDS: INSULIN ASPART PER UNIT SC SCH ×2 (08:06→12:22)
[2022-01-29] MEDS: INSULIN GLARGINE SOLOSTAR 100 UNITS/ML 3 ML PEN SC SCH (08:06)
[2022-01-29] MEDS: ASPIRIN 81 MG ECTAB PO SCH (08:06)
--- NOTE | 2022-01-29 10:32 | Nephrology Progress Note ---
Date of Service January 29, 2022 Assessment & Plan Admission and Anticipated Discharge Date Admission Date: January 24, 2022 Subjective Assessment & Plan (1) Hyponatremia: Plan: Acute on chronic hyponatremia with presenting sodium 117 at 2100 January 23. Etiology is likely due to adrenal insufficiency and hypothyroidism. Continue salt tablets 2gm tid for discharge also. Hydrocortisone has made a difference and na 127 this am. Primary team already spoke with Endocrine in [facility] regarding Supplement for discharge. Close follow up with PCP , endocrine and nephrology (2) CKD (chronic kidney disease) stage 3, GFR 30-59 ml/min: Plan: nonalbuminuric CKD 3 with a baseline creatinine 1.3-1.4. At risk for contrast- induced nephropathy given IV contrast exposure and relatively dehydrated state. Creatinine 1.8 but stable today likely hemodynamically mediated. Subjective Seen in follow-up for hyponatremia. Patient was diagnosed with adrenal insufficiency and now on hydrocortisone. Sodium remains stable at 127. Patient feels better denies any shortness of breath. Stable dizziness if standing for long period. Review of Systems Review of Systems: All other systems were reviewed and negative except as noted in HPI Physical Exam Physical Exam: General exam: Appears comfortable, no acute distress HEENT: Pupils are equal and reactive to light Neck: No JVD, neck is supple trachea is midline Respiratory system: Clear breath sounds bilaterally. Gastrointestinal: Abdomen is soft, non distended, non tender, bowel sounds are present CVS: Regular rate and rhythm. No murmurs, rubs or gallops Musculoskeletal: No joint or muscle tenderness Extremities: Non tender, no edema, peripheral pulses are present Neuro: Oriented, no tremors, no focal neurological deficits Skin: No rashes Results & Data ([facility]) Vital Signs (Past 12 Hours) Vital Signs Temp Pulse Pulse Resp BP BP Pulse Ox 01/29/22 06:36 36.2 C L 78 18 106/50 L 100 01/29/22 03:04 37 C 94 H 18 107/67 97 01/29/22 00:48 90 01/28/22 23:08 37 C 99 H 18 109/68 98
[2022-01-29] MEDS ORDERED: HYDROCORTISONE SOD 50 MG in SYRINGE 0 ML IV ONE ×2 (13:00→19:00)
--- NOTE | 2022-01-29 14:23 | Hospitalist Progress Note ---
Date of Service January 29, 2022 Assessment & Plan (1) Hyponatremia: Plan: (1) Hyponatremia: Plan: Hypovolemic Hyponatremia possible SIADH Adrenal insufficiency - given IV NSS Na improved from 117 to 122 NSS on HCO3 given then Na decreased to 119 placed on Salt tab, Urea Na 122 -Random cortisol low at 4 Cosyntropin test positive Discussed with foundry finisher at [facility] Start hydrocortisone 100 mg IV every 8, then taper - 01/29 Na improved to 127 continue salt tab TID Hydrocortisone PO 20mg in , 10mg at PM repeat Na on 01/31 PCP ff up Sat or refer to [facility] for ff up in 1-2 week and Nephro in 1-2 weeks CKD 3 - crea 1.8 - monitor closely Hypertension - on the lower side monitor DM2 on oral medications, reasonable control as of recent hemoglobin A1c of 7.31 December 2021 - continue usual regimen Hypothyroidism -Continue levothyroxine 125 mcg daily DVT prophylaxis. Heparin subcu Full code plan of care discussed with patient in detail and at length all questions answered he is understanding, agreeable, comfortable with the plan of care Admission and Anticipated Discharge Date Admission Date: January 24, 2022 Subjective ff up for hyponatremia, adrenal insufficiency, etc seen resting in bed, comfortable sitting up states he feels fine overall no chest pain, dyspnea, palpitations, dizziness no nausea, abdominal pain appetite good no other symptoms states he is ready and would like to be discharged today Review of Systems Review of Systems: all noted and negative except for above Physical Exam Physical Exam: General- oriented x 3, not in distress, speaks in sentences with no effort or accessory muscle use Eyes- anicteric Neck- no JVD Lungs- clear BS bilaterally, no rales/wheezes Heart- normal rate, regular rhythm; no murmurs Abdomen- normal bowel sounds, nondistended, soft, nontender Extremities- no pretibial edema, no calf tenderness Neuro- alert, oriented x 3; no gross focal neurologic deficits Skin- warm & dry Results & Data Results & Data ([facility]) Vital Signs (Past 12 Hours) Vital Signs Temp Pulse Resp BP BP Pulse Ox 01/29/22 06:36 36.2 C L 78 18 106/50 L 100 01/29/22 03:04 37 C 94 H 18 107/67 97 all noted and reviewed including below
--- NOTE | 2022-01-29 16:12 | Discharge Summary ---
Date of Service January 29, 2022 Admission HPI Per Admitting Provider History obtained from patient and records. Medical history significant for hypertension, DM2 on oral medications, hypothyroidism, CRI (baseline creatinine 1.3-1.4). Last confinement December 2019 for sepsis secondary to pneumonia. Patient has not been feeling well the last 3 weeks. Nausea, generalized weakness, chills, loss of appetite. Chronic cough symptoms. Denies depression. Self-limiting diarrheal illness. Concern for tickborne illness given recent outdoor activity. Patient denies chest pain, SOB, headache symptoms. Patient seen at PCPs office yesterday. Outpatient labs ordered. Serum sodium noted to be 119. Patient directed to ER for evaluation. 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 Admission Exam Per Admitting Provider GENERAL: Slightly uncomfortable, wane, no respiratory distress SKIN: Normal color, warm HEENT: Bespectacled, [place] palpebral conjunctivae, no ptosis, dry buccal mucosa NECK : Supple, no tenderness CHEST : CTA, no tenderness HEART : RRR, no obvious murmurs ABDOMEN: Some distention, nontender EXTREMITIES : No LE swelling/tenderness, no other conspicuous deformities noted NEUROLOGIC : Coherent, no facial asymmetry, no other gross focality Principal Diagnosis HYPONATREMIA LIKELY SECONDARY TO ADRENAL INSUFFICIENCY Discharge Exam General- oriented x 3, not in distress, speaks in sentences with no effort or accessory muscle use Eyes- anicteric Neck- no JVD Lungs- clear BS bilaterally, no rales/wheezes Heart- normal rate, regular rhythm; no murmurs Abdomen- normal bowel sounds, nondistended, soft, nontender Extremities- no pretibial edema, no calf tenderness Neuro- alert, oriented x 3; no gross focal neurologic deficits Skin- warm & dry Discharge Data Allergies Allergy/AdvReac Type Severity Reaction Status Date / Time NSAIDS (Non-Steroidal Allergy Severe Unverified 01/23/22 22:50 Anti-Inflamma states "Almost like and asthmatic attack" Consultations 01/23/22 23:53 ED Decision to Admit Stat 01/24/22 07:35 Consult Nephrology Routine Ordered Studies 01/23/22 22:09 CT abd pelvis IV con only Urgent CT SCAN OF THE ABDOMEN AND PELVIS WITH IV CONTRAST CLINICAL HISTORY: Nausea and vomiting. COMPARISON STUDY: Abdominal CT dated 07/17/2021. TECHNIQUE: Following the IV administration of 93 cc of Optiray 320, CT scan of the abdomen and pelvis is performed from the lung bases to the proximal femora. Images are reviewed in the axial, sagittal, and coronal planes. IV contrast was administered without complication. A dose lowering technique was utilized adhering to the principles of ALARA. CT DOSE: 386.13 mGy.cm FINDINGS: Lung bases: The heart is normal in size and without pericardial effusion. The lung bases are clear. Liver: The contrast-enhanced liver is normal in size, contour, and attenuation. There is no intrahepatic biliary ductal dilatation. The hepatic veins and portal veins are patent. Gallbladder: Unremarkable. Spleen: Normal in size and attenuation. Pancreas: Unremarkable. Adrenal glands: Unremarkable. Kidneys: The contrast enhanced kidneys are normal in size and without hydronephrosis. The kidneys enhance symmetrically. A 1.3 cm cyst arises from the left upper pole. Abdominal vasculature: The abdominal aorta is normal in course and caliber. Bowel: There is no bowel obstruction. Mild fecal retention is seen throughout the colon. The appendix is well-visualized and normal. Peritoneum: There is no intraperitoneal free air or abdominal ascites. Lymphadenopathy: None. Pelvic viscera: The prostate gland is mildly enlarged and heterogeneous noting median lobe hypertrophy. The bladder wall appears circumferentially thickened. The seminal vesicles are normal as visualized. Skeletal structures: No lytic or blastic lesions are seen. IMPRESSION: 1. No acute infectious or inflammatory findings are identified in the abdomen or pelvis. 2. There is no bowel obstruction. 3. The bladder wall appears circumferentially thickened. This may be related to chronic outlet obstruction. Correlate with clinical findings and urinalysis. 4. Additional findings as above. ACT 112: Negative or not required by law. Hospital Course (1) Hyponatremia: (1) Hyponatremia: Plan: Hypovolemic Hyponatremia Adrenal insufficiency - given IV NSS Na initially improved from 117 to 122 NSS on HCO3 given then Na decreased to 119 placed on Salt tab, Urea Na still at 122 -Random cortisol checked, low at 4 Cosyntropin test positive Discussed with clerical assigner at [facility] Dr. Mensah Started on hydrocortisone 100 mg IV every 8, then taper - 01/29 Na improved to 127 continue salt tab TID Hydrocortisone PO 20mg in , 10mg at PM repeat Na on Wed 5/4 PCP ff up on Sat will need to establish with Endo for further work up of Adrenal Insufficiency refer to Endo [facility] for ff up in 1-2 week and Nephro in 1-2 weeks CKD 3 - crea 1.8 - monitor closely Vit D deficiency - Vit D level low based on outpatient test done c/o PCP - Vit D 50k given further management and ff up as outpatient Hypertension - on the lower side monitor DM2 on oral medications, reasonable control as of recent hemoglobin A1c of 7.31 December 2021 - continue usual regimen Hypothyroidism -Continue levothyroxine 125 mcg daily DVT prophylaxis. Heparin subcu Full code plan of care discussed with patient in detail and at length all questions answered he is understanding, agreeable, comfortable with the plan of care Total Time Total Time Spent Total Time Spent (In Minutes): > 30 minutes Discharge Plan Discharge Items Patient Disposition: Home - Self-Care Reason For Visit: HYPONATREMIA Discharge Diagnosis: HYPONATREMIA SIADH Activity: Resume your previous activity Activity Comment: Lifting: Wait until after follow-up appointment Exercise/Sports: Wait until after follow-up appointment Driving/Machine Use: NO DRIVING UNTIL RE-EVALUATED AND ALLOWED BY PRIMARY CARE PHYSICIAN Non-emergency contact: Primary Care Provider Call non-emergency contact if: you have any medication questions, your symptoms worsen, your pain is not controlled, your pain is worsening, your pain is u nusual for you, your pain is concerning for you and you have a fever Follow-up/Referrals: Leobardo Banks MD [Surgeon] - (Date & Time 02/06/2022 10:00 AM Provider Leobardo Banks MD Department Nephrology, [facility] ) Brodie Calhoun MD [Primary Care Provider] - (Date & Time 01/31/2022 12:20 PM Provider Brodie Calhoun MD Department Family [facility] ) Diet: Carb Consistent or DM2 and Heart Healthy Addtl Attending Provider Instructions: PLEASE REFER TO YOUR NEW MEDICATION LIST AND FOLLOW INSTRUCTIONS CAREFULLY. YOUR NEW MEDICATIONS INCLUDE: SALT TABLETS- for hyponatremia (low sodium level) HYDROCORTISONE - for adrenal insufficiency for tonight 01/29/2022, take 50mg once starting tomorrow 01/30/2022, take 20mg in AM and 10mg at PM PLEASE CALL YOUR PRIMARY CARE PHYSICIAN OR RETURN TO THE ER IF WITH WORSENING OF SYMPTOMS, INCLUDING WEAKNESS, DIZZINESS, SHORTNESS OF BREATH, CONFUSION, FEVER/CHILLS. FOLLOW UP WITH PRIMARY CARE PHYSICIAN OUTLINED ABOVE. Pending Studies at Discharge: Yes Studies:: REPEAT BLOODWORK ON Saturday01/31/22- BASIC METABOLIC PROFILE Stand-Alone Forms: My [facility], Smoking Cessation Medications and DC Order Prescriptions: New sodium chloride 1 gram Tablet 2 g PO TID 7 Days Qty: 42 RF: 0 hydrocortisone 10 mg tablet 10 mg PO QPM Qty: 30 RF: 1 hydrocortisone 20 mg tablet 20 mg PO QAM Qty: 30 RF: 1 Continued aspirin 81 mg Tablet,Delayed Release (Dr/Ec) 81 mg PO DAILY Qty: 0 RF: 0 glyburide 1.25 mg Tablet 1.25 mg PO QAM Qty: 0 RF: 0 levothyroxine 125 mcg Tablet 125 mcg PO QAM Qty: 0 RF: 0 simvastatin [Zocor] 20 mg Tablet 20 mg PO HS Qty: 0 RF: 0 metformin 1,000 mg Tablet 1,000 mg PO BIDM Qty: 0 RF: 0 Discharge Orders: Discharge Order (Routine); Ordered 01/29/22 Ordered By: Collins Torres Admission Data Admit Date/Time: 01/24/22 01:02 Attending Provider: Collins Torres Admit Provider: Maykel Boles Primary Care Provider: Brodie Calhoun Other Providers: Maykel Boles ; Jen Lange Other Interventions: Discharge Summary Assessment (RN) Last Done: 01/29/22 14:38
[2022-01-31 14:07] LABS: Uric Acid, Random Urine 14 mg/dL
== END 2022-01-29 15:11 | disposition home or self-care (01) | DRG 644 ==
LOC: ED 20:05 → 2N 01-24 01:02
DX: E27.40 Unspecified adrenocortical insufficiency; E03.9 Hypothyroidism, unspecified; E11.22 Type 2 diabetes mellitus with diabetic chronic kidney disease; E11.65 Type 2 diabetes mellitus with hyperglycemia; E78.5 Hyperlipidemia, unspecified; Z88.6 Allergy status to analgesic agent; E55.9 Vitamin D deficiency, unspecified; Z79.890 Hormone replacement therapy; Z79.84 Long term (current) use of oral hypoglycemic drugs; N17.9 Acute kidney failure, unspecified; E22.2 Syndrome of inappropriate secretion of antidiuretic hormone; I12.9 Hypertensive chronic kidney disease with stage 1 through stage 4 chronic kidney disease, or unspecified chronic kidney disease; N18.30 Chronic kidney disease, stage 3 unspecified; E86.0 Dehydration